=== PATIENT | female | born 1960 | race Caucasian/White ===

== ENCOUNTER 2025-05-29 23:19 | Inpatient (IN) | payer MEDICARE, MEDICAID, SELFPAY ==
--- NOTE | ~2025-05-29 | CT_ITS ---
EXAMINATION:CT diagnostic chest wo con DATE: 05/30/2025 11:08 INDICATION: Hyponatremia. TECHNIQUE: Computed tomography (CT) of the chest was performed without intravenous contrast. Automated exposure control and iterative reconstruction technique were employed. The dose-length product (DLP) was 767.69 mGy-cm. COMPARISON: None. FINDINGS: There is mild atelectasis bilaterally. No pleural effusion. The heart size is normal. There are coronary artery calcifications. No pericardial effusion. There is a small sliding hiatal hernia. There are vascular calcifications at the ladonna of the kidneys. There is cortical thinning of left kidney. There is mild chronic anterior wedging of many vertebral bodies. There is severe thoracic spondylosis. IMPRESSION: 1. Small sliding hiatal hernia. Reviewed, dictated and finalized at location E.
--- NOTE | ~2025-05-29 | XR_ITS ---
EXAMINATION: XR chest 1V portable COMPARISON: No comparisons available. HISTORY: COPD FINDINGS: The lungs are clear, no effusion. No pneumothorax. Heart is normal size. Mediastinal and hilar contours are within normal limits. Bony thorax no acute abnormality. Miscellaneous: None Impression: No acute cardiopulmonary abnormality. Reviewed, dictated and finalized at location P. Impression: No acute cardiopulmonary abnormality.
--- NOTE | ~2025-05-29 | CT_ITS ---
EXAMINATION: CT brain wo con DATE: 05/30/2025 00:52 INDICATION: Altered mental status. Anisocoria. TECHNIQUE: Computed tomography (CT) of the head was performed without intravenous contrast. The mA was adjusted according to patient size. Iterative reconstruction technique was employed. The dose-length product was 1135.00 mGy-cm. COMPARISON: None FINDINGS: There are old infarcts in the right frontal and parietal lobes. There is chronic encephalomalacia in left frontal temporal region. There are scattered areas of low attenuation in the cerebral white matter. There is no intracranial hemorrhage, acute infarction, or abnormal intracranial mass lesion. There is ex vacuo dilatation of temporal horn of left lateral ventricle. There is mucosal thickening in the paranasal sinuses. There are changes of left-sided craniotomy. 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 The orbits are normal. There are small bilateral mastoid effusions. IMPRESSION: 1. 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 Chronic encephalomalacia in the left frontal temporal region. 2. Moderate nonspecific cerebral white matter disease, which likely represents chronic small vessel ischemic disease. Reviewed, dictated and finalized at location E. IMPRESSION: 1. 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 Chronic encephalomalac ia in the left frontal temporal region. 2. Moderate nonspecific cerebral white matter disease, which likely represents chronic small vessel ischemic disease.
--- NOTE | ~2025-05-29 | XR_ITS ---
Examination: XR chest 1V portable Clinical History: ams Comparison: None Technique: Portable AP Findings: Heart size normal. Subtle diffuse interstitial markings. No acute bony abnormality. IMPRESSION: 1. Subtle interstitial pulmonary edema, pneumonitis, and/or chronic interstitial disease. Reviewed, dictated and finalized at location R. IMPRESSION: 1. Subtle interstitial pulmonary edema, pneumonitis, and/or chronic interstiti al disease.
[2025-05-29 23:20] VITALS: BP 122/84; PULSE 58; RESP 16; RESP 18; TEMP 36.7; O2SAT 91; O2SAT 95
[2025-05-29 23:38] LABS: Hematocrit 36.6 % (37.0-47.0); Hemoglobin 12.5 g/dL (12.0-15.0); Immature Granulocyte Percent A 0.7 % (0-0.5); Lymphocytes Absolute Auto 1.59 K/mm3 (0.9-3.2); Mean Corpuscular HGB Conc 34.2 g/dl (32-36); Mean Corpuscular Hemoglobin 29.2 pg (26-34); Mean Corpuscular Volume 85.5 fl (80-100); Nucleated Red Blood Cells Absolute Auto 0.000 K/mm3 (0.0-0.012); Nucleated Red Blood Cells Perc 0.0 % (0.0-0.2); Platelet Count Result 309 k/mm3 (150-375); Red Blood Count 4.28 M/mm3 (4.2-5.4); White Blood Count 9.8 K/mm3 (4.5-10.0)
[2025-05-29] MEDS: LACTATED RINGERS 1,000 ML 999 ML IV CONT (23:45)
--- NOTE | 2025-05-29 23:54 | ED.RECABL ---
HPI - Recheck/Abnormal Lab/Rx General Chief Complaint: Recheck/Abnormal Lab/Rx Stated Complaint: LOW BG, HYPOTENSIVE Time Seen by Provider: 05/29/25 23:41 History of Present Illness HPI narrative: 65-year-old female with history of insulin-dependent diabetes type 2 presenting to the emergency department for mental status changes. senior living suspects that patient received a dose of her short-acting insulin rather than a long-acting insulin and did not eat yet. She was altered and diaphoretic and hypoglycemic with a blood glucose of 20 on EMS arrival. Patient was given D 10 containing fluids 500 cc with improvement in mental status. Currently she is lethargic. No longer diaphoretic but having sonorous respirations, minimally arousable to verbal stimuli but arousable to physical stimuli briefly. Pupils appear slightly asymmetric right-sided greater than left-sided. When aroused patient verbalizes briefly but not enough to get a historical account of events. Related Data Allergies Allergy/AdvReac Type Severity Reaction Status Date / Time cephalexin (From [employer]) Allergy Intermediate Hives Verified 05/29/25 23:45 Cephalosporins Allergy Intermediate Rash Verified 05/29/25 23:45 Review of Systems Review of Systems: Unable to assess secondary to mental condition ROS unobtainable: Yes unobtainable due to medical condition Exam Narrative: GENERAL: Ill-appearing, sinus respirations, slightly diaphoretic HEAD: Normocephalic, atraumatic EYES: Pupils asymmetric right-sided greater than left-sided but reactive to light. ENT: Nares clear, no rhinorrhea or epistaxis. Mucous membranes very dry. NECK: Supple. CHEST: Sonorous respirations, mild coarse breath sounds, no tachypnea respiratory distress. HEART: [Regular rate and rhythm]. No murmur heard. 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 NEURO: Alert to name and vigorous verbal/physical stimuli. Seemingly moving her extremities but globally weak. Pupils asymmetric, arouses to painful stimuli, confused, following commands. Currently GCS 12 PSYCH: [Normal mood and affect.] Course Vital Signs Vital signs: Vital Signs Temperature 36.7 C 05/29/25 23:20 Pulse Rate 58 L 05/29/25 23:20 Respiratory Rate 18 05/29/25 23:20 Blood Pressure 122/84 05/29/25 23:20 Pulse Oximetry 91 05/29/25 23:20 Oxygen Delivery Room Air 05/29/25 23:20 Temperature 36.7 C 05/29/25 23:20 Pulse Rate 62 05/30/25 02:50 Respiratory Rate 13 05/30/25 02:50 Blood Pressure 122/84 05/29/25 23:20 Pulse Oximetry 100 05/30/25 02:50 Oxygen Delivery BiPAP 05/30/25 02:50 MDM - Recheck/Abnormal Lab/Rx MDM Narrative Medical decision making narrative: 65-year-old female with history of insulin-dependent diabetes type 2 presenting to the emergency department for mental status changes. senior living suspects that patient received a dose of her short-acting insulin rather than a long-acting insulin and did not eat yet. She was altered and diaphoretic and hypoglycemic with a blood glucose of 20 on EMS arrival. Patient was given D 10 containing fluids 500 cc with improvement in mental status. Currently she is lethargic. No longer diaphoretic but having sonorous respirations, minimally arousable to verbal stimuli but arousable to physical stimuli briefly. Pupils appear slightly asymmetric right-sided greater than left-sided. When aroused patient verbalizes briefly but not enough to get a historical account of events. POC glucose here over 200. Laboratory studies pending and current critical lab value shows a sodium 114. Given her decreased mental status GCS 12 and sonorous respirations with asymmetric pupils she was given 3% hypertonic saline bolus of 150 cc over [address] scan ordered, urinalysis with straight catheterization ordered, lactic acid obtained and additional laboratory studies, vbg, blood culture ordered. Temp sensing Heller was placed and she was hypothermic temperature 93.8? C. hypoxic crying oxygen currently placed on 2 L nasal cannula. Bradycardic in the 50s to 60s. Blood pressure stable. CT of the head shows no acute process. Blood gas obtained shows CO2 retention with elevated pCO2 and low pH. Placed on BiPAP for assistance with hypoxemia and her acidosis at this time. Patient's mentation only improved slightly and she is still having abnormal respirations, persistently hypothermic, blood glucose have been stable on repeat checks without any further dextrose administration. Given patient's symptomatology and constellation of symptoms additional exploration including potential adrenal crisis noted so we gave her hydrocortisone 100 mg IV push to assess. Repeat sodium after hypertonic only came up to 115. Workup thus far shows no white count. No anemia. Normal platelet count. Normal coagulation panel. Normal creatinine. Glucose study and holding in the 100-200 range. LFTs unremarkable. Lactic acid negative. Additional urine studies and serum osmolality pending. Awaiting remaining workup and response any of her current treatments. Patient will require ICU admission given encephalopathy multifactorial, hypoxemic respiratory failure on BiPAP, severe hyponatremia. Multiple times we tried to reach out to the on-call physician extender were unsuccessful. Does spoke to Dr. Salinas who recommended normal saline at 100 cc/hour rather than hypertonic infusion so we switched this over. Spoke to the skiver box toe Dr. Rinaldi who accepted the patient to the ICU after discussions. Patient is improved at this time and actually trying to rip off the BiPAP and she states she does not need this. She is not having any improvement on repeat ABGs. Did require small dose of intravenous Haldol to compliant she is much more comfortable. Encephalopathy is improving and as well as her vital signs. Spoke to the hospitalist Dr. Miguel who accepted the patient to the ICU at this time. Medical Records Attestation: I reviewed the patient's medical records. Lab Data Attestation: I reviewed the patient's lab results. 05/29/25 23:26 05/30/25 04:12 Labs: Lab Results 05/29/25 05/29/25 05/29/25 Range/Units 23:26 23:26 23:29 WBC 9.8 (4.5-10.0) K/mm3 RBC 4.28 (4.2-5.4) M/mm3 Hgb 12.5 (12.0-15.0) g/dL Hct 36.6 L (37.0-47.0) % MCV 85.5 (80-100) fl MCH 29.2 (26-34) pg MCHC 34.2 (32-36) g/dl RDW 13.8 (11.5-14.5) % Plt Count 309 (150-375) k/mm3 MPV 9.8 (7.4-10.4) fl Immature Gran % (Auto) 0.7 H (0-0.5) % Neut % (Auto) 67.1 (45.5-73.1) % Lymph % (Auto) 16.2 L (18.3-44.2) % Emery % (Auto) 13.3 H (2.6-8.5) % Eos % (Auto) 2.1 (0-4.4) % Baso % (Auto) 0.6 (0.2-1.2) % Lymph # (Auto) 1.59 (0.9-3.2) K/mm3 Emery # (Auto) 1.3 H (0.1-0.6) K/mm3 Eos # (Auto) 0.2 (0-0.3) K/mm3 Baso # (Auto) 0.1 (0.0-0.1) K/mm3 Abs Immat Gran (auto) 0.07 H (0.00-0.031) K/mm3 Absolute Neuts (auto) 6.6 (1.3-6.7) K/mm3 Absolute Nucleated RBC 0.000 (0.0-0.012) K/mm3 Nucleated RBC % 0.0 (0.0-0.2) % PT 13.5 (11.1-14.7) Seconds INR 1.0 APTT 29.5 (22.3-36.8) Seconds Expiratory Pressure CMH2O Inspiratory Pressure CMH2O Sodium 114 L* (137-145) mmol/L Potassium 4.0 (3.4-5.0) mmol/L Chloride 83 L (98-107) mmol/L Carbon Dioxide 28 (22-30) mmol/L Anion Gap 3 L (4-12) mmol/L BUN 29 H (7-17) mg/dL Creatinine 0.85 (0.7-1.0) mg/dL Estim Creat Clear Calc Not Reportable Estimated GFR > 60 (59 - ) Glucose 123 H (65-110) mg/dL POC Capillary Glucose 257 H (65-105) mg/dl Serum Osmolality Cancelled Pending Lactic Acid 1.4 (0.7-2.0) mmol/L Calcium 7.7 L (8.4-10.2) mg/dL Total Bilirubin 0.2 (0.2-1.3) mg/dL AST 30 (14-36) U/L ALT 21 (6-35) U/L Alkaline Phosphatase 108 (38-126) U/L Total Protein 6.7 (6.3-8.2) g/dL Albumin 3.5 (3.5-5.1) g/dL Random Cortisol ug/dL Urine Color (Yellow) Urine Appearance (Clear) Urine pH (5.0-9.0) Ur Specific [place] (1.001-1.035) Urine Protein (Negative) mg/dL Urine Glucose (UA) (Negative) mg/dL Urine Ketones (Negative) mg/dL Ur Blood (Man) (Negative) Urine Nitrate (Negative) Urine Bilirubin (Negative) Urine Urobilinogen (<2.0) mg/dL Leukocyte Esterase Rfl (Negative) JOSEFA/UL Urine Osmolality Ur Random Creatinine Urine Chloride Urine Opiates Screen (Negative) Urine Methadone Screen (Negative) Ur Barbiturates Screen (Negative) Ur Phencyclidine Scrn (Negative) Ur Amphetamine Screen (Negative) U Benzodiazepines Scrn (Negative) Urine Cocaine Screen (Negative) U Cannabinoids Screen (Negative) 05/30/25 05/30/25 05/30/25 Range/Units 00:22 00:22 00:29 WBC (4.5-10.0) K/mm3 RBC (4.2-5.4) M/mm3 Hgb (12.0-15.0) g/dL Hct (37.0-47.0) % MCV (80-100) fl MCH (26-34) pg MCHC (32-36) g/dl RDW (11.5-14.5) % Plt Count (150-375) k/mm3 MPV (7.4-10.4) fl Immature Gran % (Auto) (0-0.5) % Neut % (Auto) (45.5-73.1) % Lymph % (Auto) (18.3-44.2) % Emery % (Auto) (2.6-8.5) % Eos % (Auto) (0-4.4) % Baso % (Auto) (0.2-1.2) % Lymph # (Auto) (0.9-3.2) K/mm3 Emery # (Auto) (0.1-0.6) K/mm3 Eos # (Auto) (0-0.3) K/mm3 Baso # (Auto) (0.0-0.1) K/mm3 Abs Immat Gran (auto) (0.00-0.031) K/mm3 Absolute Neuts (auto) (1.3-6.7) K/mm3 Absolute Nucleated RBC (0.0-0.012) K/mm3 Nucleated RBC % (0.0-0.2) % PT (11.1-14.7) Seconds INR APTT (22.3-36.8) Seconds Expiratory Pressure CMH2O Inspiratory Pressure CMH2O Sodium (137-145) mmol/L Potassium (3.4-5.0) mmol/L Chloride (98-107) mmol/L Carbon Dioxide (22-30) mmol/L Anion Gap (4-12) mmol/L BUN (7-17) mg/dL Creatinine (0.7-1.0) mg/dL Estim Creat Clear Calc Estimated GFR (59 - ) Glucose (65-110) mg/dL POC Capillary Glucose 185 H (65-105) mg/dl Serum Osmolality Lactic Acid (0.7-2.0) mmol/L Calcium (8.4-10.2) mg/dL Total Bilirubin (0.2-1.3) mg/dL AST (14-36) U/L ALT (6-35) U/L Alkaline Phosphatase (38-126) U/L Total Protein (6.3-8.2) g/dL Albumin (3.5-5.1) g/dL Random Cortisol ug/dL Urine Color Yellow (Yellow) Urine Appearance Clear (Clear) Urine pH 6.0 (5.0-9.0) Ur Specific [place] 1.012 (1.001-1.035) Urine Protein Negative (Negative) mg/dL Urine Glucose (UA) Negative (Negative) mg/dL Urine Ketones Negative (Negative) mg/dL Ur Blood (Man) Negative (Negative) Urine Nitrate Negative (Negative) Urine Bilirubin Negative (Negative) Urine Urobilinogen 1.0 (<2.0) mg/dL Leukocyte Esterase Rfl Negative (Negative) JOSEFA/UL Urine Osmolality Pending Ur Random Creatinine Pending Pending Urine Chloride Pending Urine Opiates Screen Negative (Negative) Urine Methadone Screen Negative (Negative) Ur Barbiturates Screen Negative (Negative) Ur Phencyclidine Scrn Negative (Negative) Ur Amphetamine Screen Negative (Negative) U Benzodiazepines Scrn Negative (Negative) Urine Cocaine Screen Negative (Negative) U Cannabinoids Screen Negative (Negative) 05/30/25 05/30/25 05/30/25 Range/Units 01:12 01:15 02:15 WBC (4.5-10.0) K/mm3 RBC (4.2-5.4) M/mm3 Hgb (12.0-15.0) g/dL Hct (37.0-47.0) % MCV (80-100) fl MCH (26-34) pg MCHC (32-36) g/dl RDW (11.5-14.5) % Plt Count (150-375) k/mm3 MPV (7.4-10.4) fl Immature Gran % (Auto) (0-0.5) % Neut % (Auto) (45.5-73.1) % Lymph % (Auto) (18.3-44.2) % Emery % (Auto) (2.6-8.5) % Eos % (Auto) (0-4.4) % Baso % (Auto) (0.2-1.2) % Lymph # (Auto) (0.9-3.2) K/mm3 Emery # (Auto) (0.1-0.6) K/mm3 Eos # (Auto) (0-0.3) K/mm3 Baso # (Auto) (0.0-0.1) K/mm3 Abs Immat Gran (auto) (0.00-0.031) K/mm3 Absolute Neuts (auto) (1.3-6.7) K/mm3 Absolute Nucleated RBC (0.0-0.012) K/mm3 Nucleated RBC % (0.0-0.2) % PT (11.1-14.7) Seconds INR APTT (22.3-36.8) Seconds Expiratory Pressure CMH2O Inspiratory Pressure CMH2O Sodium 115 L* (137-145) mmol/L Potassium (3.4-5.0) mmol/L Chloride (98-107) mmol/L Carbon Dioxide (22-30) mmol/L Anion Gap (4-12) mmol/L BUN (7-17) mg/dL Creatinine (0.7-1.0) mg/dL Estim Creat Clear Calc Estimated GFR (59 - ) Glucose (65-110) mg/dL POC Capillary Glucose 189 H 186 H (65-105) mg/dl Serum Osmolality Lactic Acid (0.7-2.0) mmol/L Calcium (8.4-10.2) mg/dL Total Bilirubin (0.2-1.3) mg/dL AST (14-36) U/L ALT (6-35) U/L Alkaline Phosphatase (38-126) U/L Total Protein (6.3-8.2) g/dL Albumin (3.5-5.1) g/dL Random Cortisol ug/dL Urine Color (Yellow) Urine Appearance (Clear) Urine pH (5.0-9.0) Ur Specific [place] (1.001-1.035) Urine Protein (Negative) mg/dL Urine Glucose (UA) (Negative) mg/dL Urine Ketones (Negative) mg/dL Ur Blood (Man) (Negative) Urine Nitrate (Negative) Urine Bilirubin (Negative) Urine Urobilinogen (<2.0) mg/dL Leukocyte Esterase Rfl (Negative) JOSEFA/UL Urine Osmolality Ur Random Creatinine Urine Chloride Urine Opiates Screen (Negative) Urine Methadone Screen (Negative) Ur Barbiturates Screen (Negative) Ur Phencyclidine Scrn (Negative) Ur Amphetamine Screen (Negative) U Benzodiazepines Scrn (Negative) Urine Cocaine Screen (Negative) U Cannabinoids Screen (Negative) 05/30/25 05/30/25 Range/Units 02:16 02:36 WBC (4.5-10.0) K/mm3 RBC (4.2-5.4) M/mm3 Hgb (12.0-15.0) g/dL Hct (37.0-47.0) % MCV (80-100) fl MCH (26-34) pg MCHC (32-36) g/dl RDW (11.5-14.5) % Plt Count (150-375) k/mm3 MPV (7.4-10.4) fl Immature Gran % (Auto) (0-0.5) % Neut % (Auto) (45.5-73.1) % Lymph % (Auto) (18.3-44.2) % Emery % (Auto) (2.6-8.5) % Eos % (Auto) (0-4.4) % Baso % (Auto) (0.2-1.2) % Lymph # (Auto) (0.9-3.2) K/mm3 Emery # (Auto) (0.1-0.6) K/mm3 Eos # (Auto) (0-0.3) K/mm3 Baso # (Auto) (0.0-0.1) K/mm3 Abs Immat Gran (auto) (0.00-0.031) K/mm3 Absolute Neuts (auto) (1.3-6.7) K/mm3 Absolute Nucleated RBC (0.0-0.012) K/mm3 Nucleated RBC % (0.0-0.2) % PT (11.1-14.7) Seconds INR APTT (22.3-36.8) Seconds Expiratory Pressure 5 CMH2O Inspiratory Pressure 10 CMH2O Sodium 115 L* (137-145) mmol/L Potassium 4.5 (3.4-5.0) mmol/L Chloride 84 L (98-107) mmol/L Carbon Dioxide 28 (22-30) mmol/L Anion Gap 3 L (4-12) mmol/L BUN 29 H (7-17) mg/dL Creatinine 0.74 (0.7-1.0) mg/dL Estim Creat Clear Calc Not Reportable Estimated GFR > 60 (59 - ) Glucose 145 H (65-110) mg/dL POC Capillary Glucose (65-105) mg/dl Serum Osmolality Lactic Acid (0.7-2.0) mmol/L Calcium 7.6 L (8.4-10.2) mg/dL Total Bilirubin (0.2-1.3) mg/dL AST (14-36) U/L ALT (6-35) U/L Alkaline Phosphatase (38-126) U/L Total Protein (6.3-8.2) g/dL Albumin (3.5-5.1) g/dL Random Cortisol 117.00 ug/dL Urine Color (Yellow) Urine Appearance (Clear) Urine pH (5.0-9.0) Ur Specific [place] (1.001-1.035) Urine Protein (Negative) mg/dL Urine Glucose (UA) (Negative) mg/dL Urine Ketones (Negative) mg/dL Ur Blood (Man) (Negative) Urine Nitrate (Negative) Urine Bilirubin (Negative) Urine Urobilinogen (<2.0) mg/dL Leukocyte Esterase Rfl (Negative) JOSEFA/UL Urine Osmolality Ur Random Creatinine Urine Chloride Urine Opiates Screen (Negative) Urine Methadone Screen (Negative) Ur Barbiturates Screen (Negative) Ur Phencyclidine Scrn (Negative) Ur Amphetamine Screen (Negative) U Benzodiazepines Scrn (Negative) Urine Cocaine Screen (Negative) U Cannabinoids Screen (Negative) ABG Data ABG results: 05/30/25 05/30/25 00:17 02:36 Puncture Site Right radial ABG pH 7.260 L* ABG pCO2 60.0 H ABG pO2 97.2 ABG PO2/FiO2 Ratio 1.94 ABG HCO3 26.3 H ABG O2 Saturation 96.3 ABG O2 Content 17.5 ABG Base Excess -1.8 VBG pH 7.260 L VBG pCO2 63.1 H VBG pO2 37.0 VBG HCO3 27.7 A-a Gradient 191.8 Oxyhemoglobin 94.4 Total Hemoglobin 13.1 O2 Delivery Device Nasal cannula Non-invasive vent O2 Liters/Min 2.0 Not Reportable Vent Rate 12 FiO2 28 50 Attestation: I personally reviewed and interpreted this ABG as follows: Interpretation: Respiratory acidosis with CO2 retention Imaging Data Attestation: I personally reviewed and interpreted this imaging study as follows: My impression: No intracranial process. Chest x-ray shows no acute process Critical Care Time Critical Care Time Critical Care Time: Yes Total Critical Care Time: 105 Discharge Plan Discharge Clinical Impression: Encephalopathy acute, Acute hyponatremia, Acute metabolic encephalopathy due to hypoglycemia, Hypothermia, Acute respiratory acidosis Patient Disposition: Still a Patient Condition: Guarded Prognosis Time of Disposition: 04:30
[2025-05-29 23:55] LABS: Alanine Aminotransferase 21 U/L (6-35); Albumin Level 3.5 g/dL (3.5-5.1); Alkaline Phosphatase 108 U/L (38-126); Anion Gap 3 mmol/L (4-12); Aspartate Amino Transferase 30 U/L (14-36); Bilirubin,Total 0.2 mg/dL (0.2-1.3); Blood Urea Nitrogen 29 mg/dL (7-17); Calcium 7.7 mg/dL (8.4-10.2); Carbon Dioxide 28 mmol/L (22-30); Chloride 83 mmol/L (98-107); Estimated Glomerular Filt Rate > 60; Glucose 123 mg/dL (65-110); Potassium 4.0 mmol/L (3.4-5.0); Sodium 114 mmol/L (137-145); Total Protein 6.7 g/dL (6.3-8.2)
[2025-05-30] VITALS (76 sets, daily range): BP systolic 83–186; BP diastolic 44–132; PULSE 56–88; RESP 10–23; TEMP 34.7–37; O2SAT 89–100; BMI 35.4
--- NOTE | 2025-05-30 | ECHO_ITS ---
Patient Info Name: Analia Hernandez Age: 65 years : 1960 Gender: Female Ht: 64 in Wt: 206 lbs BSA: 2.09 m2 HR: 69 bpm BP: 117 / 66 mmHg Technical Quality: Good Exam Date: 05/30/2025 11:47 AM Patient Status: I Admit Date: 05/30/2025 Exam Type: CA echo doppler color flow Complete two-dimensional, color flow and Doppler transthoracic echocardiogram is performed. Normal LV size, mild LVH, normal LV systolic function, ejection fraction about 65-70%. Grade 1 diastolic dysfunction. Normal RV size and systolic function. Mild left enlargement. Normal right atrial size. Normal mitral valve structure, no segment MR. Normal aortic valve structure, no hemodynamically significant stenosis. Unable to assess RVSP due to inadequate TR jet. Normal IVC size. No significant effusion. Staff Referring Physician: Facundo De León MD Stationary Engineer Supervisor: Emma Villela Attending Provider: Althea Miguel DO Summary 1. Complete two-dimensional, color flow and Doppler transthoracic echocardiogram is performed. Normal LV size, mild LVH, normal LV systolic function, ejection fraction about 65-70%. Grade 1 diastolic dysfunction. Normal RV size and systolic function. Mild left enlargement. Normal right atrial size. Normal mitral valve structure, no segment MR. Normal aortic valve structure, no hemodynamically significant stenosis. Unable to assess RVSP due to inadequate TR jet. Normal IVC size. No significant effusion. 2. Technically difficult study, suboptimal image quality. Left Ventricular Outflow Tract Name Value Normal LVOT 2D LVOT Diameter 2.0 cm LVOT Doppler LVOT Peak Velocity 128 cm/s LVOT Peak Gradient 7 mmHg LVOT Mean Gradient 4 mmHg LVOT VTI 33 cm LVOT VTI/AV VTI Ratio 0.7 LVOT Stroke Volume 109 ml LVOT CO 7.5 l/min LVOT CI 3.6 l/min/m2 Pulmonic Valve Name Value Normal RVOT Doppler RVOT Peak Velocity 123 cm/s RVOT Peak Gradient 6 mmHg PV Doppler PV Peak Velocity 163 cm/s PV Peak Gradient 11 mmHg Mitral Valve Name Value Normal MV Diastolic Function MV E Peak Velocity 101 cm/s MV A Peak Velocity 114 cm/s MV E/A 0.9 MV Decel Time (PW) 272 ms MV Annular TDI MV E/e' (Septal) 16.7 MV E/e' (Lateral) 12.5 MV E/e' (Average) 14.6 Aortic Valve Name Value Normal AV Doppler AV Peak Velocity 178 cm/s AV Peak Gradient 13 mmHg AV Mean Gradient 7 mmHg AV VTI 45 cm AV Area (Cont Eq VTI) 2.4 cm2 >=3.0 AV Area (Cont Eq Olvin) 2.4 cm2 AV DI (Olvin) 0.72 AV Regurgitation 2D LVOT Area 3.3 cm2 Ventricles Name Value Normal LV Dimensions 2D/MM LVOT Diameter 2.0 cm LV Fractional Shortening/Ejection Fraction 2D/MM LV Diastolic Volume (4C MOD) 87 ml LV EF (4C MOD) 71 % LV Diastolic Volume (2C MOD) 85 ml LV EF (2C MOD) 63 % LV Diastolic Volume (BP MOD) 87 ml 46-106 LV Diastolic Volume Index (BP MOD) 41 ml/m2 29-61 LV Systolic Volume (BP MOD) 29 ml 14-42 LV Systolic Volume Index (BP MOD) 14 ml/m2 8-24 LV EF (BP MOD) 67 % 54-74 LV Diastolic Length (4C) 7.8 cm LV Systolic Length (4C) 6.3 cm LV Stroke Volume (4C MOD) 62 ml Atria Name Value Normal LA Dimensions LA Volume (4C A-L) 29 ml LA Volume (BP A-L) 41 ml RA Dimensions RA Systolic Major Katy Length (4C) 5.3 cm 2.2-2.8 RA Area (4C) 15.2 cm2 <=18.0 Report Signatures
[2025-05-30 00:25] LABS: Fractional Inspired Oxygen 28 %; HCO3 VBG 27.7 mEq/l (24.0-30.0); PCO2 VBG 63.1 mmHg (42.0-48.0); PO2 VBG 37.0 mmHg (35.0-45.0); pH VBG 7.260 (7.300-7.400)
[2025-05-30 00:26] LABS: Liters per Minute 2.0 LPM
[2025-05-30 00:27] LABS: INR 1.0; Prothrombin Time 13.5 Seconds (11.1-14.7)
[2025-05-30 00:28] LABS: Partial Thromboplastin Time 29.5 Seconds (22.3-36.8)
[2025-05-30] MEDS: SODIUM CHLORIDE 3% 150 ML 450 ML IV CONT (00:30)
[2025-05-30 00:31] LABS: Add Urine Microscopic? NO; Appearance Urine Clear (Clear); Glucose Urine UA Negative (Negative); Leukocyte Esterase Ur Negative LEU/UL (Negative); Nitrate Urine Negative (Negative); Specific Grav Ur 1.012 (1.001-1.035)
[2025-05-30] MEDS: LACTATED RINGERS 1,000 ML 999 ML IV CONT (00:52)
[2025-05-30 01:28] LABS: Sodium 115 mmol/L (137-145)
[2025-05-30] MEDS: HYDROCORTISONE SODIUM SUCCINATE 100 MG/2 ML VIAL IV PUSH (02:03)
[2025-05-30 02:40] LABS: Anion Gap 3 mmol/L (4-12); Blood Urea Nitrogen 29 mg/dL (7-17); Calcium 7.6 mg/dL (8.4-10.2); Carbon Dioxide 28 mmol/L (22-30); Chloride 84 mmol/L (98-107); Estimated Glomerular Filt Rate > 60; Glucose 145 mg/dL (65-110); Potassium 4.5 mmol/L (3.4-5.0); Sodium 115 mmol/L (137-145)
[2025-05-30 02:46] LABS: Alveolar/Arterial O2 Gradient 191.8 mmHg; Fractional Inspired Oxygen 50 %; HCO3 ABG 26.3 mEq/l (22.0-26.0); Oxygen Content ABG 17.5 %vol (16.0-22.0); Oxygen Saturation ABG 96.3 % (95.0-100.0); PCO2 ABG 60.0 mmHg (35.0-45.0); PO2 ABG 97.2 mmHg (80.0-100.0); PO2 FiO2 Ratio Arterial Blood 1.94 %
[2025-05-30 02:47] LABS: Modified Allen's Test Pass; Site Drawn RIGHT RADIAL
[2025-05-30 02:48] LABS: Non-Invasive Expiratory Pressure 5 CMH2O; Non-Invasive Inspiratory Pressure 10 CMH2O; Non-Invasive Vent Rate 12 /MIN
[2025-05-30 02:54] LABS: Cannabinoid Screen Urine Negative (Negative)
[2025-05-30] MEDS: HALOPERIDOL LACTATE 5 MG/ML VIAL 2.5 MG IV PUSH (03:07)
[2025-05-30] MEDS: SODIUM CHLORIDE 3% 500 ML 75 ML IV CONT (04:09)
[2025-05-30] MEDS: SODIUM CHLORIDE 0.9% IV 1,000 ML 100 ML IV CONT (04:32)
[2025-05-30 04:42] LABS: Anion Gap 5 mmol/L (4-12); Blood Urea Nitrogen 30 mg/dL (7-17); Calcium 7.7 mg/dL (8.4-10.2); Carbon Dioxide 26 mmol/L (22-30); Chloride 84 mmol/L (98-107); Estimated Glomerular Filt Rate > 60; Glucose 155 mg/dL (65-110); Potassium 5.6 mmol/L (3.4-5.0); Sodium 115 mmol/L (137-145)
[2025-05-30 05:00] LABS: Thyroid Stimulating Hormone Reflex 0.502 uIU/mL (0.465-4.68)
[2025-05-30 05:29] LABS: MRSA (PCR) NOT DETECTED (NOT DETECTE)
[2025-05-30 06:16] LABS: Alveolar/Arterial O2 Gradient 178.3 mmHg; Carboxyhemoglobin 2.2 % THb (0-2.0); Fractional Inspired Oxygen 40 %; HCO3 ABG 26.7 mEq/l (22.0-26.0); Methemoglobin ABG 0.2 %THb (0-1.5); Oxygen Content ABG 10.8 %vol (16.0-22.0); PO2 FiO2 Ratio Arterial Blood 0.86 %; Reduced Hemoglobin 39.5 %THb (0-5.0)
--- NOTE | 2025-05-30 06:53 | ADMGEN ---
This patient, Analia Hernandez, was admitted to Intensive Care Unit-7 on 05/30/25 at 0645. Patient/family oriented to hospital policies and general routines including ID bracelet, bed and alarms, visiting hours, pain management, procedures, bathroom and other care routines, personal items, smoking policy, room service/diet, and visiting hours. Information on how to activate the Rapid Response Team has been discussed. Patient/Family are encouraged to report perceived risks to care and to ask questions if they do not understand what they are told or what they should do.
--- NOTE | 2025-05-30 07:15 | PCRCNOTE ---
RT was unable to obtain abg; multiple attempts were made
[2025-05-30 08:19] LABS: Oxygen Saturation ABG 96.6 % (95.0-100.0); PCO2 ABG 53.1 mmHg (35.0-45.0); PO2 ABG 93.6 mmHg (80.0-100.0)
[2025-05-30 08:23] LABS: Liters per Minute 4.0 LPM; Modified Allen's Test Pass; Site Drawn RIGHT RADIAL
[2025-05-30 08:31] LABS: Anion Gap 4 mmol/L (4-12); Blood Urea Nitrogen 24 mg/dL (7-17); Calcium 7.8 mg/dL (8.4-10.2); Carbon Dioxide 26 mmol/L (22-30); Chloride 86 mmol/L (98-107); Estimated CRCL calculation 87 ml/min; Estimated Glomerular Filt Rate > 60; Glucose 122 mg/dL (65-110); Potassium 5.6 mmol/L (3.4-5.0); Sodium 116 mmol/L (137-145)
[2025-05-30 09:06] LABS: MRSA (PCR) NOT DETECTED (NOT DETECTE)
--- NOTE | 2025-05-30 09:50 | WPDCNINT ---
Assessment and Plan Assessment and plan (1) Encephalopathy acute: Code(s): G93.40 - Encephalopathy, unspecified Status: Acute Assessment and Plan: Presented with acute encephalopathy which is likely secondary to hypoglycemia as it has resolved after administration of dextrose. Patient also has is hyponatremia but hyponatremia is still present and mental status has improved his suggesting against the etiology Head CT was negative ABG reviewed TSH was normal check ammonia Hyponatremia management as below Hold sedatives (2) Hyponatremia: Code(s): E87.1 - Hypo-osmolality and hyponatremia Status: Acute Assessment and Plan: Patient presented with hyponatremia with normal renal function Differential includes dehydration as patient is on diuretics vs medication induced as patient is on several psychiatric medications vs SIADH Nephrology has been consulted assistance in management and patient is on normal saline at this time as per Nephrology recommendations with acute for are BMP monitoring. Check CT chest as patient has heavy stay of smoking TSH is normal, random cortisol level is in normal range (3) COPD (chronic obstructive pulmonary disease): Code(s): J44.9 - Chronic obstructive pulmonary disease, unspecified Status: Acute Assessment and Plan: Bronchodilators, Advair (4) Hypoglycemia: Code(s): E16.2 - Hypoglycemia, unspecified Status: Acute Assessment and Plan: Patient presented with altered mental status and hypoglycemia. Hypoglycemia appears to be secondary to her in restriction insulin. Blood sugar has now improved after administration of dextrose. I will continue to hold insulin at this time and monitor Accu-Cheks q.1 hour and once stabilized patient will be transition to less frequent blood sugar monitoring. (5) Diabetes mellitus: Code(s): E11.9 - Type 2 diabetes mellitus without complications Status: Acute Assessment and Plan: See above (6) Respiratory failure: Code(s): J96.90 - Respiratory failure, unspecified, unspecified whether with hypoxia or hypercapnia Status: Acute Assessment and Plan: Patient has history of COPD and presented with respiratory acidosis which could have been exacerbated by her encephalopathy. Patient was placed on BiPAP. ABG has improved. Patient is now awake alert and on nasal cannula. Will use BiPAP on p.r.n. basis as needed. Chest x-ray was clear I will obtain CT scan to evaluate for hyponatremia since patient has a heavy history of smoking (7) Hyperkalemia: Code(s): E87.5 - Hyperkalemia Status: Acute Assessment and Plan: Pt given [facility] managing (8) Hyperlipidemia: Code(s): E78.5 - Hyperlipidemia, unspecified Status: Acute Assessment and Plan: Continue statin (9) Depression: Code(s): F32.A - Depression, unspecified Status: Acute Assessment and Plan: Hold psychiatric medications (10) Anxiety: Code(s): F41.9 - Anxiety disorder, unspecified Status: Acute Assessment and Plan: Hold medications and monitor at this time (11) Peripheral arterial disease: Code(s): I73.9 - Peripheral vascular disease, unspecified Status: Acute Assessment and Plan: Aspirin statin (12) Hypothyroidism: Code(s): E03.9 - Hypothyroidism, unspecified Status: Acute Assessment and Plan: Continue levothyroxine (13) Dementia: Code(s): F03.90 - Unspecified dementia, unspecified severity, without behavioral disturbance, psychotic disturbance, mood disturbance, and anxiety Status: Acute Assessment and Plan: Hold medications in light of hyponatremia Plan DVT prophylaxis -Lovenox Nutrition -start clear liquid diet advance as tolerated to diabetic Code Status - Full Code Total Critical Care Time - 30 minutes Due to a high probability of clinically significant, life threatening deterioration, the patient required my highest level of preparedness to intervene emergently and I personally spent this critical care time directly and personally managing the patient. This critical care time included obtaining a history; examining the patient; pulse oximetry; ordering and review of studies; arranging urgent treatment with development of a management plan; evaluation of patient's response to treatment; frequent reassessment; and discussions with other providers. It was exclusive of separately billable procedures and treating other patients and teaching time. Please see Assessment and Plan section and the rest of the note for further information on patient assessment and treatment [employer] Consult Note Consult date: 05/30/25 Reason for consult: Encephalopathy, hyponatremia HPI: Analia Hernandez is a 65 year old female who is a longterm resident and has past medical history of type 2 diabetes, COPD, right above knee amputation, peripheral neuropathy was sent from longterm yesterday with altered mental status and hypoglycemia. Patient who used to be on insulin pump was switched to subcutaneous insulin at longterm. She states she takes 25 of Lantus in the morning and 30 of Lantus at night and sliding scale during the day. Yesterday she was found to be altered and diaphoretic and when her sugar was checked it was 20. It appears that she was given her short-acting insulin without she eating her meals.. In ER patient was given dextrose along with fluids with improvement in mental status. Patient also was found to be hypercarbic and was placed on BiPAP.. Patient was unable to provide any meaningful history. She also was found to be having severe hyponatremia and was given 3% saline bolus which only led to minimal improvement in her sodium level. Nephrology consulted patient was started on regular normal saline and admitted to ICU and was placed on BiPAP. This morning when I evaluated the patient patient is now alert awake oriented x3 and states she feels better. She confirmed that she had a low blood sugar level last night due to some error with insulin administration and states that prior to that she was feeling fine and no issues whatsoever. She states she is in longterm because she had a sacral wound which could not be managed at home and since then she has had surgery and the wound has healed. She admitted to taking all the medications regularly although she does not know all the details of all the medications she takes. She admits to smoking cigarettes drinking alcohol rarely and denies any other drug use. All other systems were reviewed and were negative Review of Systems Review of Systems: All systems reviewed & are unremarkable except as noted in HPI and below (HPI) [facility], [facility] Past Medical History Medical History (Updated 05/30/25 @ 10:14 by Facundo De León MD) COPD (chronic obstructive pulmonary disease) Dementia Hypothyroidism CVA (cerebral vascular accident) Peripheral arterial disease Anxiety Depression Hyperlipidemia Diabetes mellitus Surgical History Surgical History (Updated 05/30/25 @ 10:14 by Facundo De León MD) History of right above knee amputation Family History Family History (Updated 05/30/25 @ 07:02 by Marva Castellano RN) Father Pacemaker Congestive heart failure Father Hypertension Sibling Hypertension Social History Social History Smoking packs per day: 1 Smoking cigarettes per day: 20.0 Years smoked: 30 Smoking pack-years: 30.00 Smoking status: Former smoker Tobacco type: cigarettes Second hand tobacco smoke exposure: Yes Alcohol intake: never Substance use: never Lack of Transportation: No Lack of Food: Never True Current Housing: I Have Housing Concerned About Future Housing: No Difficulty Paying Gas/Electric Bills: No Difficulty Paying for Meds: No Currently Unemployed: No Education: Associate Degree Difficulty w/ Childcare or Family Care: No Spiritual care concerns: No Meds Home Medications and Allergies Home Medications ?Medication ?Instructions ?Recorded ?Confirmed ?Type amitriptyline 50 mg tablet 50 mg PO HS 05/30/25 05/30/25 History aspirin 81 mg capsule 81 mg PO DAILY 05/30/25 05/30/25 History atorvastatin 40 mg tablet 40 mg PO HS 05/30/25 05/30/25 History bupropion HCl 150 mg 24 hr tablet, 150 mg PO DAILY 05/30/25 05/30/25 History extended release cholecalciferol (vitamin D3) 1,250 50,000 unit PO DAILY 05/30/25 05/30/25 History mcg (50,000 unit) oral wafer cholecalciferol (vitamin D3) 50 50 mcg PO DAILY 05/30/25 05/30/25 History mcg (2,000 unit) chewable tablet donepezil 10 mg tablet 10 mg PO HS 05/30/25 05/30/25 History duloxetine 20 mg capsule,delayed 20 mg PO BID 05/30/25 05/30/25 History release fluticasone propionate 45 2 puff inhalation BID PRN 05/30/25 05/30/25 History mcg-salmeterol 21 mcg/actuation shortness of breath HFA inhaler (Advair HFA) furosemide 40 mg tablet 40 mg PO DAILY 05/30/25 05/30/25 History guaifenesin 400 mg tablet (Chest 400 mg PO Q6H PRN congestion 05/30/25 05/30/25 History Congestion Relief) insulin aspart U-100 100 unit/mL 1 sliding scale dose subcut ACHS 05/30/25 05/30/25 History (3 mL) subcutaneous pen insulin degludec 100 unit/mL (3 25 unit subcut DAILY 05/30/25 05/30/25 History mL) subcutaneous pen insulin degludec 100 unit/mL (3 30 unit subcut HS 05/30/25 05/30/25 History mL) subcutaneous pen ipratropium 20 mcg-albuterol 100 1 puff inhalation BID PRN 05/30/25 05/30/25 History mcg/actuation mist for inhalation shortness of breath or wheezing (Combivent Respimat) levothyroxine 100 mcg tablet 100 mcg PO DAILY 05/30/25 05/30/25 History levothyroxine 75 mcg tablet 75 mcg PO DAILY 05/30/25 05/30/25 History lisinopril 20 mg tablet 20 mg PO DAILY 05/30/25 05/30/25 History loratadine 10 mg tablet 10 mg PO DAILY 05/30/25 05/30/25 History (Allerclear) memantine 10 mg tablet 10 mg PO BID 05/30/25 05/30/25 History metoclopramide HCl 10 mg tablet 10 mg PO AC 05/30/25 05/30/25 History oxycodone 5 mg tablet 5 mg PO Q4H PRN pain 05/30/25 05/30/25 History polyethylene glycol 3350 17 17 g PO DAILY PRN constipation 05/30/25 05/30/25 History gram/dose oral powder (Miralax) pramipexole 0.5 mg tablet 0.5 mg PO TID 05/30/25 05/30/25 History pregabalin 300 mg capsule (Lyrica) 300 mg PO TID 05/30/25 05/30/25 History sodium chloride 0.65 % nasal spray 2 spray intranasal Q2H PRN dry 05/30/25 05/30/25 History aerosol ([place] Saline) nasal passages Allergies Allergy/AdvReac Type Severity Reaction Status Date / Time cephalexin (From [facility]) Allergy Intermediate Hives Verified 05/30/25 09:50 Cephalosporins Allergy Intermediate Rash Verified 05/30/25 09:50 Vital Signs Vital Signs - 24 hr 05/29/25 23:20 05/29/25 23:20 05/30/25 00:50 Temperature 36.7 C Pulse Rate 58 L 56 L Respiratory Rate 18 16 13 Blood Pressure 122/84 Pulse Oximetry 91 95 97 Oxygen Delivery Room Air BiPAP Oxygen Flow Rate 2 Fraction of Inspired Oxygen 05/30/25 01:11 05/30/25 01:15 05/30/25 01:17 Temperature 34.7 C L 34.7 C L 34.7 C L Pulse Rate 57 L 57 L 58 L Respiratory Rate 10 L 10 L 10 L Blood Pressure 128/109 H 141/132 H Pulse Oximetry 100 100 Oxygen Delivery Oxygen Flow Rate Fraction of Inspired Oxygen 05/30/25 01:22 05/30/25 01:27 05/30/25 01:30 Temperature 34.7 C L 34.8 C L 34.8 C L Pulse Rate 56 L 59 L 57 L Respiratory Rate 10 L 11 L 10 L Blood Pressure 134/98 H 127/68 Pulse Oximetry 100 100 100 Oxygen Delivery Oxygen Flow Rate Fraction of Inspired Oxygen 05/30/25 01:32 05/30/25 01:37 05/30/25 01:42 Temperature 34.8 C L 34.8 C L 34.8 C L Pulse Rate 56 L 58 L 59 L Respiratory Rate 11 L 11 L 11 L Blood Pressure 140/58 L 151/83 H 153/49 H Pulse Oximetry 100 100 Oxygen Delivery Oxygen Flow Rate Fraction of Inspired Oxygen 05/30/25 01:45 05/30/25 01:52 05/30/25 02:00 Temperature 34.8 C L 34.8 C L 34.9 C L Pulse Rate 58 L 60 58 L Respiratory Rate 10 L 11 L 10 L Blood Pressure 163/128 H Pulse Oximetry Oxygen Delivery Oxygen Flow Rate Fraction of Inspired Oxygen 05/30/25 02:02 05/30/25 02:15 05/30/25 02:16 Temperature 34.8 C L 34.9 C L 34.9 C L Pulse Rate 58 L 59 L 65 Respiratory Rate 12 11 L 15 Blood Pressure 154/131 H 163/58 H Pulse Oximetry 100 Oxygen Delivery Oxygen Flow Rate Fraction of Inspired Oxygen 05/30/25 02:22 05/30/25 02:30 05/30/25 02:45 Temperature 35.0 C L 35.1 C L 35.2 C L Pulse Rate 62 59 L 62 Respiratory Rate 20 17 16 Blood Pressure 142/68 H 110/84 Pulse Oximetry 100 100 100 Oxygen Delivery Oxygen Flow Rate Fraction of Inspired Oxygen 05/30/25 02:46 05/30/25 02:50 05/30/25 02:52 Temperature 35.2 C L 35.2 C L Pulse Rate 61 62 58 L Respiratory Rate 14 13 17 Blood Pressure 123/82 Pulse Oximetry 100 100 100 Oxygen Delivery BiPAP Oxygen Flow Rate Fraction of Inspired Oxygen 05/30/25 03:00 05/30/25 03:01 05/30/25 03:12 Temperature 35.3 C L 35.3 C L 35.4 C L Pulse Rate 58 L 62 59 L Respiratory Rate 19 19 14 Blood Pressure 131/105 H 125/105 H Pulse Oximetry 100 100 100 Oxygen Delivery Oxygen Flow Rate Fraction of Inspired Oxygen 05/30/25 03:15 05/30/25 03:22 05/30/25 03:30 Temperature 35.5 C L 35.6 C L 35.7 C L Pulse Rate 59 L 59 L 58 L Respiratory Rate 12 13 12 Blood Pressure 106/57 L Pulse Oximetry 100 100 100 Oxygen Delivery Oxygen Flow Rate Fraction of Inspired Oxygen 05/30/25 03:32 05/30/25 03:42 05/30/25 03:45 Temperature 35.7 C L 35.8 C L 35.8 C L Pulse Rate 58 L 58 L 58 L Respiratory Rate 12 12 12 Blood Pressure 112/64 128/64 Pulse Oximetry 100 100 100 Oxygen Delivery Oxygen Flow Rate Fraction of Inspired Oxygen 05/30/25 03:52 05/30/25 04:00 05/30/25 04:01 Temperature 35.9 C L 36.0 C L 36.0 C L Pulse Rate 58 L 58 L 58 L Respiratory Rate 12 11 L 12 Blood Pressure 120/54 L 83/73 L Pulse Oximetry 100 100 100 Oxygen Delivery Oxygen Flow Rate Fraction of Inspired Oxygen 05/30/25 04:03 05/30/25 04:11 05/30/25 04:15 Temperature 36.1 C L 36.2 C L 36.2 C L Pulse Rate 60 63 64 Respiratory Rate 11 L 20 16 Blood Pressure 103/87 120/71 Pulse Oximetry 100 100 100 Oxygen Delivery Oxygen Flow Rate Fraction of Inspired Oxygen 05/30/25 04:21 05/30/25 04:30 05/30/25 04:32 Temperature 36.3 C L 36.4 C 36.4 C Pulse Rate 68 67 65 Respiratory Rate 17 17 15 Blood Pressure 164/67 H 136/60 Pulse Oximetry 100 100 100 Oxygen Delivery Oxygen Flow Rate Fraction of Inspired Oxygen 05/30/25 04:42 05/30/25 04:45 05/30/25 04:52 Temperature 36.5 C 36.6 C 36.6 C Pulse Rate 61 64 77 Respiratory Rate 17 16 20 Blood Pressure 152/65 H 138/121 H Pulse Oximetry 100 100 99 Oxygen Delivery Oxygen Flow Rate Fraction of Inspired Oxygen 05/30/25 05:00 05/30/25 05:02 05/30/25 05:12 Temperature 36.6 C 36.6 C 36.6 C Pulse Rate 64 69 63 Respiratory Rate 20 23 H 19 Blood Pressure 102/88 110/98 H Pulse Oximetry 99 100 99 Oxygen Delivery Oxygen Flow Rate Fraction of Inspired Oxygen 05/30/25 05:15 05/30/25 05:16 05/30/25 05:21 Temperature 36.6 C 36.7 C Pulse Rate 68 73 65 Respiratory Rate 16 17 20 Blood Pressure 136/61 Pulse Oximetry 100 97 99 Oxygen Delivery BiPAP Oxygen Flow Rate Fraction of Inspired Oxygen 05/30/25 05:30 05/30/25 05:32 05/30/25 05:45 Temperature 36.7 C 36.7 C 36.7 C Pulse Rate 67 63 67 Respiratory Rate 16 18 20 Blood Pressure 136/63 Pulse Oximetry 100 100 100 Oxygen Delivery Oxygen Flow Rate Fraction of Inspired Oxygen 05/30/25 06:48 05/30/25 06:54 05/30/25 07:00 Temperature 36.8 C Pulse Rate 63 65 65 Respiratory Rate 14 14 14 Blood Pressure 162/60 H 152/57 H Pulse Oximetry 100 100 100 Oxygen Delivery Nasal Cannula Oxygen Flow Rate 6 Fraction of Inspired Oxygen 05/30/25 08:00 05/30/25 08:00 05/30/25 08:14 Temperature 36.8 C Pulse Rate 63 69 Respiratory Rate 16 Blood Pressure 117/66 Pulse Oximetry 100 94 Oxygen Delivery Nasal Cannula Oxygen Flow Rate 4 Fraction of Inspired Oxygen 36 05/30/25 09:00 Temperature 36.6 C Pulse Rate 88 Respiratory Rate 18 Blood Pressure Pulse Oximetry 89 L Oxygen Delivery Oxygen Flow Rate Fraction of Inspired Oxygen Exam Narrative: General: Pt is alert awake and in NAD Lungs/Chest: Trachea central Clear BS B/L, No crackles or wheezing. Cardiac: RRR. Normal S1 S2. No murmurs Circulation: The right AKA, left leg I was unable to feel the pulse, toes are cold, patient has a wound on posterior aspect of her leg which is superficial and does not appear infected. Patient does have some pain and tenderness around it Abdomen: Normal bowel sounds.. PEs Soft. NT. ND. Extremities: No edema in the left leg, peripheral vascular disease, ulcer on posterior aspect of left leg : Heller in place Neurologic: Follows commands. Moves all 4 extremities PERRL AO x3 no FND Skin: No Rash Results Labs 05/29/25 23:26 05/30/25 08:15 Labs: Short CBC 05/29/25 Range/Units 23:26 WBC 9.8 (4.5-10.0) K/mm3 Hgb 12.5 (12.0-15.0) g/dL Hct 36.6 L (37.0-47.0) % Plt Count 309 (150-375) k/mm3 BMP 05/29/25 05/30/25 05/30/25 23:26 01:12 02:16 Sodium 114 L* 115 L* 115 L* Potassium 4.0 4.5 Chloride 83 L 84 L Carbon Dioxide 28 28 BUN 29 H 29 H Creatinine 0.85 0.74 Glucose 123 H 145 H Calcium 7.7 L 7.6 L 05/30/25 05/30/25 04:12 08:15 Sodium 115 L* 116 L* Potassium 5.6 H 5.6 H Chloride 84 L 86 L Carbon Dioxide 26 26 BUN 30 H 24 H Creatinine 0.68 L 0.59 L Glucose 155 H 122 H Calcium 7.7 L 7.8 L Liver Function 05/29/25 Range/Units 23:26 Total Bilirubin 0.2 (0.2-1.3) mg/dL AST 30 (14-36) U/L ALT 21 (6-35) U/L Alkaline Phosphatase 108 (38-126) U/L Albumin 3.5 (3.5-5.1) g/dL Urine 05/30/25 Range/Units 00:22 Urine Color Yellow (Yellow) Urine Appearance Clear (Clear) Urine pH 6.0 (5.0-9.0) Ur Specific [place] 1.012 (1.001-1.035) Urine Protein Negative (Negative) mg/dL Urine Glucose (UA) Negative (Negative) mg/dL Quality VTE Prophylaxis VTE prophylaxis: pharmacologic ordered Hospitalist MIPS Advance Care Plan I have confirmed that the patient's Advanced Care Plan is present, code status is documented, or surrogate decision maker is listed in patient medical record.: Yes Medication Reconciliation I have utilized all available resources to obtain, update and review the patients current medications (includes all prescriptions, OTC, herbals, cannabis, and nutritional supplements).: Yes
[2025-05-30] MEDS: ASPIRIN 81 MG CHEWABLE TABLET PO (11:29)
[2025-05-30] MEDS: SODIUM CHLORIDE 500 MG TABLET 1000 MG PO ×2 (11:29→16:55)
[2025-05-30] MEDS: CHOLECALCIFEROL (VITAMIN D3) 25 MCG (1,000 UNITS) TABLET 50 MCG PO (11:29)
[2025-05-30] MEDS: SODIUM ZIRCONIUM CYCLOSILICATE 10 GM POWD.PACK PO (11:29)
[2025-05-30] MEDS: LEVOTHYROXINE SODIUM 100 MCG TABLET PO (11:29)
[2025-05-30] MEDS: LORATADINE 10 MG TABLET PO (11:29)
[2025-05-30] MEDS: ENOXAPARIN 40 MG/0.4 ML SYRINGE SUB-Q (11:29)
--- NOTE | 2025-05-30 12:00 | PM.CNNEP ---
Assessment and Plan Assessment and plan (1) Hyponatremia: Code(s): E87.1 - Hypo-osmolality and hyponatremia Status: Acute Assessment and Plan: as noted by admission sodium level acute on chronic: patient is aware of this issue (was told about on previous hospitalizations) present at least as far back as August 2021 baseline sodium ~ 126 - 132mmol/L in the last year has been as low as 123mmol/L with acute hospitalizations discharge sodium on August 2024 (from [facility]) was 131mmol/L multiple risk factors for low sodium: COPD/lung disease medications: - amitriptyline - buproprion - duloxetine - memantine - pain medications/narcotics (oxycodone) - donepezil - pramipexole thyroid disease history of CVA diabetes/hyperglyemia evaluation to date noted: TSH normal cortisol okay CT of head without acute findings CXR with evidence of possible chronic interstital disease urine sodium/studies pending SPEP/UPEP with immunofixation pending serum/urine osmolality pending doubt etiology of altered mentation on presentation to ER mentation significantly better w/o significant change in sodium level slow improvement noted with normal saline IVFs this argues in favor of a component of volume depletion... will temporarily add salt tabs for now follow trend of repeat/serial sodium levels (2) Altered mental status: Code(s): R41.82 - Altered mental status, unspecified Status: Acute Assessment and Plan: clinical improvement noted at this time suspect secondary to hypoglycemia resolved with administration of dextrose CO2 retention/narcosis possibly played a role given admission ABG possibly some improvement with BiPAP therapy medication related(?) holding sedative medications doubt related to low sodium (sodium not much different than on admission at this time and mentation better currently) CT of head negative medication rela (3) Hyperkalemia: Code(s): E87.5 - Hyperkalemia Status: Acute Assessment and Plan: resolved transiently noted by AM labs s/p gonzales follow trend of repeat K+ (4) Acute respiratory failure: Code(s): J96.00 - Acute respiratory failure, unspecified whether with hypoxia or hypercapnia Status: Acute Assessment and Plan: possibly due to CO2 retention/hypercapnia exacerbated by altered mental status improvement noted with application of BiPAP therapy weaned down to oxygen by nasal cannula use BiPAP PRN follow respiratory status (5) Hypoglycemia: Code(s): E16.2 - Hypoglycemia, unspecified Status: Acute Assessment and Plan: resolved presumed etiology of #2 thought to be related to administration error at nursing facility (given short acting insulin when patient had not eaten yet...) improvement noted with dextrose follow accu-cheks (6) Diabetes mellitus: Code(s): E11.9 - Type 2 diabetes mellitus without complications Status: Acute Assessment and Plan: see # follow accu-cheks glycemic control per front end engineer/hospitalist > 20 minutes spent reviewing the patient's electronic medical records including [facility] (recent hospitalizations in August 2024 and June 2024) and previous testing at other acute hospitall stays along with accompanying paper chart documentation with regard to her history of hyponatremia in conjunction with her known medical history. I will continue to follow the patient with you while she remains hospitalized and make further recommendations as deemed necessary. Thank you for allowing me to participate in the care of this patient. History of Present Illness Reason for Consult Consult date: 05/30/25 Reason for consult: hyponatremia Chief Complaint Chief complaint: Encephalopathy multifactorial, hyponatremia, CO2 r History of Present Illness Narrative: The patient is a 65-year-old female with a past medical history as outlined below who presented to [facility] Emergency Room from her nursing facility due to altered mental status. The nursing staff suspects that the patient may received a dose of her short-acting insulin rather than a long acting insulin and she had not eaten anything at the time of this medication administration. The patient used to be on an insulin pump but was switched to subcutaneous insulin while at the nursing facility. She was apparently found to be hypoglycemic by the time of EMS arrival with her blood sugar checked being 20. She was given dextrose fluids by EMS which apparently resulted in improvement in her mental status. She was subsequently transported to the emergency room for further assessment. By the time of her arrival to the emergency room, her blood sugars had stabilized but she appeared to be quite lethargic. She was otherwise hemodynamically stable but she was minimally arousable to verbal stimuli despite verbal and physical stimulation by the staff in the ER. Subsequent testing in the ER noted a white blood cell count of 9.8, hemoglobin 12.5, platelet count of 309, sodium 114, potassium 4.0, bicarb 28, BUN 29, creatinine 0.85, glucose 123, lactic acid 1.4, calcium 7.7, normal LFTs, and an albumin of 3.5. her ABG showed a pH of 7.26, pCO2 of 60, PO2 of 97.2 on 2 L of oxygen. Given her ongoing altered mental status, she was placed on BiPAP therapy and given 3% saline on the assumption that her low sodium level might be partly responsible for her encephalopathy. Repeat labs showed only minimal improvement in her sodium level up to 115 millimoles per L. she was subsequently started on normal saline IV fluids and continue on BiPAP therapy with subsequent admission to the intensive care unit for further evaluation and therapy. Overnight and earlier this morning, the patient's mental status returned to baseline. She has since been weaned off BiPAP therapy and is on oxygen by nasal cannula. She recalls the issue of her low blood sugar as well as the assumption that she was given the wrong insulin at her nursing facility but cannot remember the details after that. She does state though prior to the issue of her hypoglycemia, she was otherwise doing reasonably well. She relates that she is currently in the nursing facility due to wound care management that could not be arranged at home. Renal consultation was requested due to her acute on chronic hyponatremia. From my discussion with the patient, she is aware of her issues/ problems well with regard to hyponatremia and states that she has been told about it on her recent/previous hospitalizations. She was unable to give me specifics in terms of how low her sodium level normally runs but does admit that this was an issue on her last hospitalization [facility] in August of this year. She cannot recall or state if she has ever been told the etiology/cause of her low sodium level. As already mentioned above, on admission, her sodium level is 114 millimoles per L and despite a bolus of 3% saline her sodium level only minimally improved to 115 millimoles per L. her repeat labs this morning show her sodium level up to 116 millimoles per L. in spite of her low sodium level this morning, her mentation appears to be significantly better if not back to baseline which would argue that her low sodium level noted in the ER was not likely responsible for her encephalopathy/altered mental status. Currently, at the time my evaluation, she appears to be in no acute distress. Review of Systems Review of Systems: As per HPI. [facility] Past Medical History Medical History (Updated 05/31/25 @ 09:31 by Giana Vallejo MD) Dementia Hypothyroidism CVA (cerebral vascular accident) Peripheral arterial disease Anxiety Depression Hyperlipidemia Diabetes mellitus COPD (chronic obstructive pulmonary disease) Surgical History Surgical History (Updated 05/30/25 @ 10:14 by Facundo De León MD) History of right above knee amputation Family History Family History (Updated 05/30/25 @ 07:02 by Marva Castellano RN) Father Pacemaker Congestive heart failure Father Hypertension Sibling Hypertension Social History Social History Smoking packs per day: 1 Smoking cigarettes per day: 20.0 Years smoked: 30 Smoking pack-years: 30.00 Smoking status: Former smoker Tobacco type: cigarettes Second hand tobacco smoke exposure: Yes Alcohol intake: never Substance use: never Lack of Transportation: No Lack of Food: Never True Current Housing: I Have Housing Concerned About Future Housing: No Difficulty Paying Gas/Electric Bills: No Difficulty Paying for Meds: No Currently Unemployed: No Education: Associate Degree Difficulty w/ Childcare or Family Care: No Spiritual care concerns: No Meds Home Medications and Allergies Home Medications ?Medication ?Instructions ?Recorded ?Confirmed ?Type amitriptyline 50 mg tablet 50 mg PO HS 05/30/25 05/30/25 History aspirin 81 mg capsule 81 mg PO DAILY 05/30/25 05/30/25 History atorvastatin 40 mg tablet 40 mg PO HS 05/30/25 05/30/25 History bupropion HCl 150 mg 24 hr tablet, 150 mg PO DAILY 05/30/25 05/30/25 History extended release cholecalciferol (vitamin D3) 1,250 50,000 unit PO DAILY 05/30/25 05/30/25 History mcg (50,000 unit) oral wafer cholecalciferol (vitamin D3) 50 50 mcg PO DAILY 05/30/25 05/30/25 History mcg (2,000 unit) chewable tablet donepezil 10 mg tablet 10 mg PO HS 05/30/25 05/30/25 History duloxetine 20 mg capsule,delayed 20 mg PO BID 05/30/25 05/30/25 History release fluticasone propionate 45 2 puff inhalation BID PRN 05/30/25 05/30/25 History mcg-salmeterol 21 mcg/actuation shortness of breath HFA inhaler (Advair HFA) furosemide 40 mg tablet 40 mg PO DAILY 05/30/25 05/30/25 History guaifenesin 400 mg tablet (Chest 400 mg PO Q6H PRN congestion 05/30/25 05/30/25 History Congestion Relief) insulin aspart U-100 100 unit/mL 1 sliding scale dose subcut ACHS 05/30/25 05/30/25 History (3 mL) subcutaneous pen insulin degludec 100 unit/mL (3 25 unit subcut DAILY 05/30/25 05/30/25 History mL) subcutaneous pen insulin degludec 100 unit/mL (3 30 unit subcut HS 05/30/25 05/30/25 History mL) subcutaneous pen ipratropium 20 mcg-albuterol 100 1 puff inhalation BID PRN 05/30/25 05/30/25 History mcg/actuation mist for inhalation shortness of breath or wheezing (Combivent Respimat) levothyroxine 100 mcg tablet 100 mcg PO DAILY 05/30/25 05/30/25 History levothyroxine 75 mcg tablet 75 mcg PO DAILY 05/30/25 05/30/25 History lisinopril 20 mg tablet 20 mg PO DAILY 05/30/25 05/30/25 History loratadine 10 mg tablet 10 mg PO DAILY 05/30/25 05/30/25 History (Allerclear) memantine 10 mg tablet 10 mg PO BID 05/30/25 05/30/25 History metoclopramide HCl 10 mg tablet 10 mg PO AC 05/30/25 05/30/25 History oxycodone 5 mg tablet 5 mg PO Q4H PRN pain 05/30/25 05/30/25 History polyethylene glycol 3350 17 17 g PO DAILY PRN constipation 05/30/25 05/30/25 History gram/dose oral powder (Miralax) pramipexole 0.5 mg tablet 0.5 mg PO TID 05/30/25 05/30/25 History pregabalin 300 mg capsule (Lyrica) 300 mg PO TID 05/30/25 05/30/25 History sodium chloride 0.65 % nasal spray 2 spray intranasal Q2H PRN dry 05/30/25 05/30/25 History aerosol (Bowie Saline) nasal passages Allergies Allergy/AdvReac Type Severity Reaction Status Date / Time cephalexin (From Keflex) Allergy Intermediate Hives Verified 05/30/25 09:50 Cephalosporins Allergy Intermediate Rash Verified 05/30/25 09:50 Vital Signs Vital Signs Temp Pulse Resp BP Pulse Ox O2 Del Method O2 Flow Rate 05/30/25 12:00 98 F 69 15 186/63 H 98 05/30/25 11:00 98 F 74 17 153/58 H 100 05/30/25 10:00 98 F 69 14 169/64 H 97 05/30/25 10:00 69 05/30/25 09:00 98 F 88 18 89 L 05/30/25 08:14 94 Nasal Cannula 4 05/30/25 08:00 69 05/30/25 08:00 98.2 F 63 16 117/66 100 05/30/25 07:00 98.2 F 65 14 152/57 H 100 05/30/25 06:54 65 14 100 Nasal Cannula 6 05/30/25 06:48 63 14 162/60 H 100 05/30/25 05:45 98.0 F 67 20 100 05/30/25 05:32 98.0 F 63 18 136/63 100 05/30/25 05:30 98.0 F 67 16 100 05/30/25 05:21 98.0 F 65 20 136/61 99 05/30/25 05:16 73 17 97 BiPAP 05/30/25 05:15 97.9 F 68 16 100 05/30/25 05:12 97.9 F 63 19 110/98 H 99 05/30/25 05:02 97.9 F 69 23 H 102/88 100 05/30/25 05:00 97.9 F 64 20 99 05/30/25 04:52 97.8 F 77 20 138/121 H 99 05/30/25 04:45 97.8 F 64 16 100 05/30/25 04:42 97.7 F 61 17 152/65 H 100 05/30/25 04:32 97.6 F 65 15 136/60 100 05/30/25 04:30 97.6 F 67 17 100 05/30/25 04:21 97.4 F L 68 17 164/67 H 100 05/30/25 04:15 97.2 F L 64 16 100 05/30/25 04:11 97.1 F L 63 20 120/71 100 05/30/25 04:03 96.9 F L 60 11 L 103/87 100 05/30/25 04:01 96.8 F L 58 L 12 83/73 L 100 05/30/25 04:00 96.8 F L 58 L 11 L 100 05/30/25 03:52 96.6 F L 58 L 12 120/54 L 100 05/30/25 03:45 96.5 F L 58 L 12 100 05/30/25 03:42 96.4 F L 58 L 12 128/64 100 05/30/25 03:32 96.2 F L 58 L 12 112/64 100 05/30/25 03:30 96.2 F L 58 L 12 100 05/30/25 03:22 96.0 F L 59 L 13 106/57 L 100 05/30/25 03:15 95.9 F L 59 L 12 100 05/30/25 03:12 95.8 F L 59 L 14 125/105 H 100 05/30/25 03:01 95.6 F L 62 19 131/105 H 100 05/30/25 03:00 95.6 F L 58 L 19 100 05/30/25 02:52 95.4 F L 58 L 17 123/82 100 05/30/25 02:50 62 13 100 BiPAP 05/30/25 02:46 95.3 F L 61 14 100 05/30/25 02:45 95.3 F L 62 16 110/84 100 05/30/25 02:30 95.1 F L 59 L 17 100 05/30/25 02:22 95.0 F L 62 20 142/68 H 100 05/30/25 02:16 94.9 F L 65 15 05/30/25 02:15 94.9 F L 59 L 11 L 163/58 H 100 05/30/25 02:02 94.7 F L 58 L 12 154/131 H 05/30/25 02:00 94.8 F L 58 L 10 L 05/30/25 01:52 94.7 F L 60 11 L 163/128 H 05/30/25 01:45 94.6 F L 58 L 10 L 05/30/25 01:42 94.6 F L 59 L 11 L 153/49 H 100 05/30/25 01:37 94.6 F L 58 L 11 L 151/83 H 100 05/30/25 01:32 94.6 F L 56 L 11 L 140/58 L 05/30/25 01:30 94.6 F L 57 L 10 L 100 05/30/25 01:27 94.6 F L 59 L 11 L 127/68 100 05/30/25 01:22 94.5 F L 56 L 10 L 134/98 H 100 05/30/25 01:17 94.5 F L 58 L 10 L 141/132 H 100 05/30/25 01:15 94.5 F L 57 L 10 L 05/30/25 01:11 94.5 F L 57 L 10 L 128/109 H 100 05/30/25 00:50 56 L 13 97 BiPAP 05/29/25 23:20 16 95 2 05/29/25 23:20 98.1 F 58 L 18 122/84 91 Room Air Exam Narrative: GENERAL APPEARANCE: large and well developed well nourished female in no acute distress HEENT: normocephalic, atraumatic, normal conjunctiva and sclera, nares patient NECK: no lymphadenopathy, thyromegaly, or JVD MOUTH: normal lips, teeth, and gums CARDIOVASCULAR: RRR, normal S1 and S2, no rub RESPIRATORY: coarse breath sounds ABDOMEN: soft, nontender, nondistended, positive bowel sounds present EXTREMITIES: no evidence of cyanosis, clubbing, or edema; s/p right AKA NEUROLOGICAL: awake and alert; CN II - XII intact bilaterally; no focal deficits noted Results Lab Results 05/31/25 06:27 05/31/25 14:43 Lab results: Most recent lab results ABG pH 7.340 (7.350-7.450) L 05/30/25 06:09 ABG pCO2 53.1 mmHg (35.0-45.0) H 05/30/25 06:09 ABG pO2 93.6 mmHg (80.0-100.0) 05/30/25 06:09 ABG HCO3 26.7 mEq/l (22.0-26.0) H 05/30/25 06:09 ABG O2 Saturation 96.6 % (95.0-100.0) 05/30/25 06:09 Calcium 6.4 mg/dL (8.4-10.2) L 05/30/25 17:34 Urine Creatinine 22.4 mg/dL 05/30/25 17:35
[2025-05-30 12:55] LABS: Ammonia < 9 umol/L (9-30)
[2025-05-30 13:14] LABS: Anion Gap 4 mmol/L (4-12); Blood Urea Nitrogen 18 mg/dL (7-17); Calcium 7.9 mg/dL (8.4-10.2); Carbon Dioxide 29 mmol/L (22-30); Chloride 85 mmol/L (98-107); Estimated CRCL calculation 113 ml/min; Estimated Glomerular Filt Rate > 60; Glucose 185 mg/dL (65-110); Potassium 4.8 mmol/L (3.4-5.0); Sodium 118 mmol/L (137-145)
[2025-05-30] MEDS: INSULIN ASPART (*BKC) 100 UNITS/ML SUB-Q ×2 (16:55→20:37)
[2025-05-30 17:56] LABS: Total Protein Urine Random 16 mg/dL; Ur Ttl Prot Creatinine Ratio 0.71 mg/mg (0-0.20)
[2025-05-30 17:58] LABS: Urea Random Urine 324 MG/DL
[2025-05-30 18:24] LABS: Anion Gap 2 mmol/L (4-12); Blood Urea Nitrogen 15 mg/dL (7-17); Calcium 6.4 mg/dL (8.4-10.2); Carbon Dioxide 25 mmol/L (22-30); Chloride 95 mmol/L (98-107); Estimated CRCL calculation 101 ml/min; Estimated Glomerular Filt Rate > 60; Glucose 215 mg/dL (65-110); Potassium 4.1 mmol/L (3.4-5.0); Sodium 122 mmol/L (137-145)
--- NOTE | 2025-05-30 18:50 | PM.IMHP ---
H&P: HPI History of Present Illness Date/Time: 05/30/25 18:50 Chief Complaint: AMS Narrative: CC 5-year-old female past medical history of COPD, dementia, hypothyroidism, CVA, peripheral artery disease, anxiety, depression, type 2 diabetes, hyperlipidemia, status post right AKA was mostly on account of altered mental status. Patient reported she was in her usual state of felt a fci and was woken up about 11:00 p.m. yesterday with locomotion and EMS at the bedside next she was told her blood sugar was low. Otherwise she denies any chest pain shortness but no nausea no vomiting no diarrhea dysuria no focal symptoms. Blood sugar on scene by EMS was 20. Patient was given dextrose infusion ER evaluation notable for temperature 98.1?, pulse rate 58, respiratory rate 18, saturating 91% on 2 L, blood pressure 122/84 Labs notable for WBC 9.8, ABG 7.2 cc/60/97/26, repeat was 7.34/53.1/93.426.7, sodium 114, potassium 4.0, blood sugar [address] head no acute changes. Chest x-ray shows or pulmonary edema pneumonitis versus chronic interstitial disease. Review of Systems Review of Systems: Other systems reviewed and negative aside other history above. [facility] Past Medical History Medical History (Updated 05/30/25 @ 10:14 by Facundo De León MD) COPD (chronic obstructive pulmonary disease) Dementia Hypothyroidism CVA (cerebral vascular accident) Peripheral arterial disease Anxiety Depression Hyperlipidemia Diabetes mellitus Surgical History Surgical History (Updated 05/30/25 @ 10:14 by Facundo De León MD) History of right above knee amputation Family History Family History (Updated 05/30/25 @ 07:02 by Marva Castellano RN) Father Pacemaker Congestive heart failure Father Hypertension Sibling Hypertension Social History Social History Smoking packs per day: 1 Smoking cigarettes per day: 20.0 Years smoked: 30 Smoking pack-years: 30.00 Smoking status: Former smoker Tobacco type: cigarettes Second hand tobacco smoke exposure: Yes Alcohol intake: never Substance use: never Lack of Transportation: No Lack of Food: Never True Current Housing: I Have Housing Concerned About Future Housing: No Difficulty Paying Gas/Electric Bills: No Difficulty Paying for Meds: No Currently Unemployed: No Education: Associate Degree Difficulty w/ Childcare or Family Care: No Spiritual care concerns: No Meds Home Medications and Allergies Home Medications ?Medication ?Instructions ?Recorded ?Confirmed ?Type amitriptyline 50 mg tablet 50 mg PO HS 05/30/25 05/30/25 History aspirin 81 mg capsule 81 mg PO DAILY 05/30/25 05/30/25 History atorvastatin 40 mg tablet 40 mg PO HS 05/30/25 05/30/25 History bupropion HCl 150 mg 24 hr tablet, 150 mg PO DAILY 05/30/25 05/30/25 History extended release cholecalciferol (vitamin D3) 1,250 50,000 unit PO DAILY 05/30/25 05/30/25 History mcg (50,000 unit) oral wafer cholecalciferol (vitamin D3) 50 50 mcg PO DAILY 05/30/25 05/30/25 History mcg (2,000 unit) chewable tablet donepezil 10 mg tablet 10 mg PO HS 05/30/25 05/30/25 History duloxetine 20 mg capsule,delayed 20 mg PO BID 05/30/25 05/30/25 History release fluticasone propionate 45 2 puff inhalation BID PRN 05/30/25 05/30/25 History mcg-salmeterol 21 mcg/actuation shortness of breath HFA inhaler (Advair HFA) furosemide 40 mg tablet 40 mg PO DAILY 05/30/25 05/30/25 History guaifenesin 400 mg tablet (Chest 400 mg PO Q6H PRN congestion 05/30/25 05/30/25 History Congestion Relief) insulin aspart U-100 100 unit/mL 1 sliding scale dose subcut ACHS 05/30/25 05/30/25 History (3 mL) subcutaneous pen insulin degludec 100 unit/mL (3 25 unit subcut DAILY 05/30/25 05/30/25 History mL) subcutaneous pen insulin degludec 100 unit/mL (3 30 unit subcut HS 05/30/25 05/30/25 History mL) subcutaneous pen ipratropium 20 mcg-albuterol 100 1 puff inhalation BID PRN 05/30/25 05/30/25 History mcg/actuation mist for inhalation shortness of breath or wheezing (Combivent Respimat) levothyroxine 100 mcg tablet 100 mcg PO DAILY 05/30/25 05/30/25 History levothyroxine 75 mcg tablet 75 mcg PO DAILY 05/30/25 05/30/25 History lisinopril 20 mg tablet 20 mg PO DAILY 05/30/25 05/30/25 History loratadine 10 mg tablet 10 mg PO DAILY 05/30/25 05/30/25 History (Allervenusar) memantine 10 mg tablet 10 mg PO BID 05/30/25 05/30/25 History metoclopramide HCl 10 mg tablet 10 mg PO AC 05/30/25 05/30/25 History oxycodone 5 mg tablet 5 mg PO Q4H PRN pain 05/30/25 05/30/25 History polyethylene glycol 3350 17 17 g PO DAILY PRN constipation 05/30/25 05/30/25 History gram/dose oral powder (Miralax) pramipexole 0.5 mg tablet 0.5 mg PO TID 05/30/25 05/30/25 History pregabalin 300 mg capsule (Lyrica) 300 mg PO TID 05/30/25 05/30/25 History sodium chloride 0.65 % nasal spray 2 spray intranasal Q2H PRN dry 05/30/25 05/30/25 History aerosol (Dazey Saline) nasal passages Allergies Allergy/AdvReac Type Severity Reaction Status Date / Time cephalexin (From [employer]) Allergy Intermediate Hives Verified 05/30/25 09:50 Cephalosporins Allergy Intermediate Rash Verified 05/30/25 09:50 Vital Signs Vital Signs - 24 hr 05/29/25 23:20 05/29/25 23:20 05/30/25 00:50 Temperature 98.1 F Pulse Rate 58 L 56 L Respiratory Rate 18 16 13 Blood Pressure 122/84 Pulse Oximetry 91 95 97 Oxygen Delivery Room Air BiPAP Oxygen Flow Rate 2 Fraction of Inspired Oxygen 05/30/25 01:11 05/30/25 01:15 05/30/25 01:17 Temperature 94.5 F L 94.5 F L 94.5 F L Pulse Rate 57 L 57 L 58 L Respiratory Rate 10 L 10 L 10 L Blood Pressure 128/109 H 141/132 H Pulse Oximetry 100 100 Oxygen Delivery Oxygen Flow Rate Fraction of Inspired Oxygen 05/30/25 01:22 05/30/25 01:27 05/30/25 01:30 Temperature 94.5 F L 94.6 F L 94.6 F L Pulse Rate 56 L 59 L 57 L Respiratory Rate 10 L 11 L 10 L Blood Pressure 134/98 H 127/68 Pulse Oximetry 100 100 100 Oxygen Delivery Oxygen Flow Rate Fraction of Inspired Oxygen 05/30/25 01:32 05/30/25 01:37 05/30/25 01:42 Temperature 94.6 F L 94.6 F L 94.6 F L Pulse Rate 56 L 58 L 59 L Respiratory Rate 11 L 11 L 11 L Blood Pressure 140/58 L 151/83 H 153/49 H Pulse Oximetry 100 100 Oxygen Delivery Oxygen Flow Rate Fraction of Inspired Oxygen 05/30/25 01:45 05/30/25 01:52 05/30/25 02:00 Temperature 94.6 F L 94.7 F L 94.8 F L Pulse Rate 58 L 60 58 L Respiratory Rate 10 L 11 L 10 L Blood Pressure 163/128 H Pulse Oximetry Oxygen Delivery Oxygen Flow Rate Fraction of Inspired Oxygen 05/30/25 02:02 05/30/25 02:15 05/30/25 02:16 Temperature 94.7 F L 94.9 F L 94.9 F L Pulse Rate 58 L 59 L 65 Respiratory Rate 12 11 L 15 Blood Pressure 154/131 H 163/58 H Pulse Oximetry 100 Oxygen Delivery Oxygen Flow Rate Fraction of Inspired Oxygen 05/30/25 02:22 05/30/25 02:30 05/30/25 02:45 Temperature 95.0 F L 95.1 F L 95.3 F L Pulse Rate 62 59 L 62 Respiratory Rate 20 17 16 Blood Pressure 142/68 H 110/84 Pulse Oximetry 100 100 100 Oxygen Delivery Oxygen Flow Rate Fraction of Inspired Oxygen 05/30/25 02:46 05/30/25 02:50 05/30/25 02:52 Temperature 95.3 F L 95.4 F L Pulse Rate 61 62 58 L Respiratory Rate 14 13 17 Blood Pressure 123/82 Pulse Oximetry 100 100 100 Oxygen Delivery BiPAP Oxygen Flow Rate Fraction of Inspired Oxygen 05/30/25 03:00 05/30/25 03:01 05/30/25 03:12 Temperature 95.6 F L 95.6 F L 95.8 F L Pulse Rate 58 L 62 59 L Respiratory Rate 19 19 14 Blood Pressure 131/105 H 125/105 H Pulse Oximetry 100 100 100 Oxygen Delivery Oxygen Flow Rate Fraction of Inspired Oxygen 05/30/25 03:15 05/30/25 03:22 05/30/25 03:30 Temperature 95.9 F L 96.0 F L 96.2 F L Pulse Rate 59 L 59 L 58 L Respiratory Rate 12 13 12 Blood Pressure 106/57 L Pulse Oximetry 100 100 100 Oxygen Delivery Oxygen Flow Rate Fraction of Inspired Oxygen 05/30/25 03:32 05/30/25 03:42 05/30/25 03:45 Temperature 96.2 F L 96.4 F L 96.5 F L Pulse Rate 58 L 58 L 58 L Respiratory Rate 12 12 12 Blood Pressure 112/64 128/64 Pulse Oximetry 100 100 100 Oxygen Delivery Oxygen Flow Rate Fraction of Inspired Oxygen 05/30/25 03:52 05/30/25 04:00 05/30/25 04:01 Temperature 96.6 F L 96.8 F L 96.8 F L Pulse Rate 58 L 58 L 58 L Respiratory Rate 12 11 L 12 Blood Pressure 120/54 L 83/73 L Pulse Oximetry 100 100 100 Oxygen Delivery Oxygen Flow Rate Fraction of Inspired Oxygen 05/30/25 04:03 05/30/25 04:11 05/30/25 04:15 Temperature 96.9 F L 97.1 F L 97.2 F L Pulse Rate 60 63 64 Respiratory Rate 11 L 20 16 Blood Pressure 103/87 120/71 Pulse Oximetry 100 100 100 Oxygen Delivery Oxygen Flow Rate Fraction of Inspired Oxygen 05/30/25 04:21 05/30/25 04:30 05/30/25 04:32 Temperature 97.4 F L 97.6 F 97.6 F Pulse Rate 68 67 65 Respiratory Rate 17 17 15 Blood Pressure 164/67 H 136/60 Pulse Oximetry 100 100 100 Oxygen Delivery Oxygen Flow Rate Fraction of Inspired Oxygen 05/30/25 04:42 05/30/25 04:45 05/30/25 04:52 Temperature 97.7 F 97.8 F 97.8 F Pulse Rate 61 64 77 Respiratory Rate 17 16 20 Blood Pressure 152/65 H 138/121 H Pulse Oximetry 100 100 99 Oxygen Delivery Oxygen Flow Rate Fraction of Inspired Oxygen 05/30/25 05:00 05/30/25 05:02 05/30/25 05:12 Temperature 97.9 F 97.9 F 97.9 F Pulse Rate 64 69 63 Respiratory Rate 20 23 H 19 Blood Pressure 102/88 110/98 H Pulse Oximetry 99 100 99 Oxygen Delivery Oxygen Flow Rate Fraction of Inspired Oxygen 05/30/25 05:15 05/30/25 05:16 05/30/25 05:21 Temperature 97.9 F 98.0 F Pulse Rate 68 73 65 Respiratory Rate 16 17 20 Blood Pressure 136/61 Pulse Oximetry 100 97 99 Oxygen Delivery BiPAP Oxygen Flow Rate Fraction of Inspired Oxygen 05/30/25 05:30 05/30/25 05:32 05/30/25 05:45 Temperature 98.0 F 98.0 F 98.0 F Pulse Rate 67 63 67 Respiratory Rate 16 18 20 Blood Pressure 136/63 Pulse Oximetry 100 100 100 Oxygen Delivery Oxygen Flow Rate Fraction of Inspired Oxygen 05/30/25 06:48 05/30/25 06:54 05/30/25 07:00 Temperature 98.2 F Pulse Rate 63 65 65 Respiratory Rate 14 14 14 Blood Pressure 162/60 H 152/57 H Pulse Oximetry 100 100 100 Oxygen Delivery Nasal Cannula Oxygen Flow Rate 6 Fraction of Inspired Oxygen 05/30/25 08:00 05/30/25 08:00 05/30/25 08:14 Temperature 98.2 F Pulse Rate 63 69 Respiratory Rate 16 Blood Pressure 117/66 Pulse Oximetry 100 94 Oxygen Delivery Nasal Cannula Oxygen Flow Rate 4 Fraction of Inspired Oxygen 36 05/30/25 09:00 05/30/25 10:00 05/30/25 10:00 Temperature 98 F 98 F Pulse Rate 88 69 69 Respiratory Rate 18 14 Blood Pressure 169/64 H Pulse Oximetry 89 L 97 Oxygen Delivery Oxygen Flow Rate Fraction of Inspired Oxygen 05/30/25 11:00 05/30/25 12:00 05/30/25 12:00 Temperature 98 F 98 F Pulse Rate 74 77 69 Respiratory Rate 17 15 Blood Pressure 153/58 H 186/63 H Pulse Oximetry 100 98 Oxygen Delivery Oxygen Flow Rate Fraction of Inspired Oxygen 05/30/25 12:00 05/30/25 13:00 05/30/25 14:00 Temperature 98.1 F Pulse Rate 77 79 84 Respiratory Rate 13 20 Blood Pressure 157/89 H Pulse Oximetry 98 96 Oxygen Delivery Nasal Cannula Oxygen Flow Rate 3 Fraction of Inspired Oxygen 05/30/25 14:00 05/30/25 15:00 05/30/25 16:00 Temperature 98.1 F 98.4 F Pulse Rate 79 65 74 Respiratory Rate 20 15 Blood Pressure 167/58 H 149/60 H Pulse Oximetry 96 92 Oxygen Delivery Oxygen Flow Rate Fraction of Inspired Oxygen 05/30/25 16:00 05/30/25 16:00 05/30/25 17:00 Temperature 98.6 F 98.6 F Pulse Rate 74 74 75 Respiratory Rate 17 15 19 Blood Pressure 129/61 153/56 H Pulse Oximetry 100 100 98 Oxygen Delivery Nasal Cannula Oxygen Flow Rate 2 Fraction of Inspired Oxygen 05/30/25 18:00 05/30/25 18:00 Temperature Pulse Rate 74 75 Respiratory Rate 18 Blood Pressure 126/58 L Pulse Oximetry 99 Oxygen Delivery Oxygen Flow Rate Fraction of Inspired Oxygen Exam Narrative: General: alert and comfortable Eyes: EOMI, PERRLA ENNT External ears normal, Neck is supple, no masses, Respiratory systems: Clear to auscultation Cardiovascular S1, S2, normal rhythm, no murmur, rub, or gallop; no thrill or palpable murmurs on palpation. Gastrointestinal: soft, non-tender, and non-distended abdomen with no masses; BS present Skin: no rash, lesions, ulcerations, subcutaneous nodules or induration Musculoskeletal: R AKA Neurologic: Alert and oriented x3, non focal Mental Status Exam: normal affect H&P: Results Labs Labs: Short CBC 05/29/25 Range/Units 23:26 WBC 9.8 (4.5-10.0) K/mm3 Hgb 12.5 (12.0-15.0) g/dL Hct 36.6 L (37.0-47.0) % Plt Count 309 (150-375) k/mm3 [facility] [place] 05/29/25 05/30/25 05/30/25 23:26 01:12 02:16 Sodium 114 L* 115 L* 115 L* Potassium 4.0 4.5 Chloride 83 L 84 L Carbon Dioxide 28 28 BUN 29 H 29 H Creatinine 0.85 0.74 Glucose 123 H 145 H Calcium 7.7 L 7.6 L 05/30/25 05/30/25 05/30/25 04:12 08:15 12:36 Sodium 115 L* 116 L* 118 L* Potassium 5.6 H 5.6 H 4.8 Chloride 84 L 86 L 85 L Carbon Dioxide 26 26 29 BUN 30 H 24 H 18 H Creatinine 0.68 L 0.59 L 0.44 L Glucose 155 H 122 H 185 H Calcium 7.7 L 7.8 L 7.9 L 05/30/25 17:34 Sodium 122 L Potassium 4.1 Chloride 95 L Carbon Dioxide 25 BUN 15 Creatinine 0.50 L Glucose 215 H Calcium 6.4 L Liver Function 05/29/25 Range/Units 23:26 Total Bilirubin 0.2 (0.2-1.3) mg/dL AST 30 (14-36) U/L ALT 21 (6-35) U/L Alkaline Phosphatase 108 (38-126) U/L Albumin 3.5 (3.5-5.1) g/dL Urine 05/30/25 Range/Units 00:22 Urine Color Yellow (Yellow) Urine Appearance Clear (Clear) Urine pH 6.0 (5.0-9.0) Ur Specific [place] 1.012 (1.001-1.035) Urine Protein Negative (Negative) mg/dL Urine Glucose (UA) Negative (Negative) mg/dL Assessment and Plan Assessment and plan (1) Acute respiratory acidosis: Code(s): J96.02 - Acute respiratory failure with hypercapnia Status: Acute (2) Acute hyponatremia: Code(s): E87.1 - Hypo-osmolality and hyponatremia Status: Acute Plan AMS Likely from hypoglycemia Hypoglycemia resolved and mental status resolved monitor blood sugar closely CT head unremarkable Hyponatremia F/u CT chest Continue Sodium tablets COPD exacerbation with acute hypercapnic respiratory failure Respiratory acidosis Abg showed respiratory acidosis Duoneb, Symbicort and Prednisone titrate oxygen with clinical course monitor closely Hypothyroidism Continue home meds PAD s/p R AKA Dementia continue home meds DM2 SSi witih accucheks and adjust with clinical course Anxiety/Depression Continue home meds AMS related to hypoglyemia HLD continue Statin CVA continue home meds DVT prophylaxis on Lovenox Full code SDM: Richard Hernandez Hospitalist MIPS Advance Care Plan I have confirmed that the patient's Advanced Care Plan is present, code status is documented, or surrogate decision maker is listed in patient medical record.: Yes Medication Reconciliation I have utilized all available resources to obtain, update and review the patients current medications (includes all prescriptions, OTC, herbals, cannabis, and nutritional supplements).: Yes
[2025-05-30] MEDS: ATORVASTATIN 40 MG TABLET PO (20:23)
[2025-05-30] MEDS: FLUTICASONE/SALMETEROL 115-21 MCG INHALER 1 PUFF 2 PUFF INHALATION (20:23)
[2025-05-30] MEDS: IPRATROPIUM 0.5 MG/ALBUTEROL SULFATE 2.5 MG (BASE) AMPUL.NEB 3 ML INHALATION (20:23)
[2025-05-30] MEDS: PREGABALIN (*CRX) 75 MG CAPSULE 300 MG PO (20:23)
[2025-05-30] MEDS: AMITRIPTYLINE HCL 25 MG TABLET 50 MG PO (20:24)
[2025-05-30] MEDS: DONEPEZIL HCL 10 MG TABLET PO (20:24)
[2025-05-30] MEDS: MEMANTINE 10 MG TABLET PO (20:24)
[2025-05-30 23:46] LABS: Sodium 120 mmol/L (137-145)
[2025-05-31] VITALS (29 sets, daily range): BP systolic 112–175; BP diastolic 48–83; PULSE 57–96; RESP 12–28; TEMP 36.4–37.3; O2SAT 89–100
[2025-05-31] MEDS: SODIUM CHLORIDE 0.9% IV 1,000 ML 75 ML IV CONT ×2 (00:05→22:09)
[2025-05-31] MEDS: IPRATROPIUM 0.5 MG/ALBUTEROL SULFATE 2.5 MG (BASE) AMPUL.NEB 3 ML INHALATION ×4 (02:31→20:30)
[2025-05-31] MEDS: LEVOTHYROXINE SODIUM 75 MCG TABLET PO (06:02)
[2025-05-31] MEDS: METOCLOPRAMIDE HCL 10 MG TABLET PO ×3 (06:02→16:56)
[2025-05-31] MEDS: LEVOTHYROXINE SODIUM 100 MCG TABLET PO (06:02)
[2025-05-31 06:37] LABS: Hematocrit 44.9 % (37.0-47.0); Hemoglobin 14.2 g/dL (12.0-15.0); Mean Corpuscular HGB Conc 31.6 g/dl (32-36); Mean Corpuscular Hemoglobin 29.4 pg (26-34); Mean Corpuscular Volume 93.0 fl (80-100); Platelet Count Result 315 k/mm3 (150-375); Red Blood Count 4.83 M/mm3 (4.2-5.4); White Blood Count 5.9 K/mm3 (4.5-10.0)
[2025-05-31 08:01] LABS: Alanine Aminotransferase 20 U/L (6-35); Albumin Level 3.3 g/dL (3.5-5.1); Alkaline Phosphatase 127 U/L (38-126); Anion Gap 3 mmol/L (4-12); Aspartate Amino Transferase 26 U/L (14-36); Bilirubin,Total 0.5 mg/dL (0.2-1.3); Blood Urea Nitrogen 12 mg/dL (7-17); Calcium 7.9 mg/dL (8.4-10.2); Carbon Dioxide 29 mmol/L (22-30); Chloride 93 mmol/L (98-107); Estimated CRCL calculation 114 ml/min; Estimated Glomerular Filt Rate > 60; Glucose 171 mg/dL (65-110); Magnesium 2.0 mg/dL (1.6-2.3); Potassium 4.4 mmol/L (3.4-5.0); Sodium 125 mmol/L (137-145); Total Protein 6.4 g/dL (6.3-8.2)
[2025-05-31] MEDS: FLUTICASONE/SALMETEROL 115-21 MCG INHALER 1 PUFF 2 PUFF INHALATION ×2 (08:19→19:54)
--- NOTE | 2025-05-31 08:28 | WPDINTPN ---
Progress Note: A&P Assessment and Plan (1) Encephalopathy acute: Code(s): G93.40 - Encephalopathy, unspecified Status: Acute Assessment and Plan: Presented with acute encephalopathy which is likely secondary to hypoglycemia as it has resolved after administration of dextrose. Patient also has is hyponatremia but hyponatremia is still present and mental status has improved his suggesting against the etiology Head CT was negative ABG reviewed TSH and ammonia normal Hyponatremia management as below Hold sedatives Patient now weighs 2 back to baseline (2) Hyponatremia: Code(s): E87.1 - Hypo-osmolality and hyponatremia Status: Acute Assessment and Plan: Patient presented with hyponatremia with normal renal function Differential includes dehydration as patient is on diuretics vs medication induced as patient is on several psychiatric medications vs SIADH Nephrology has been managing sodium till now patient is currently off any fluids in sodium is improved to 125. Will defer further evaluation and management to Nephrology. Pending CT chest as patient has heavy history of smoking TSH is normal, random cortisol level is in normal range (3) COPD (chronic obstructive pulmonary disease): Code(s): J44.9 - Chronic obstructive pulmonary disease, unspecified Status: Acute Assessment and Plan: Bronchodilators, Advair (4) Hypoglycemia: Code(s): E16.2 - Hypoglycemia, unspecified Status: Acute Assessment and Plan: Patient presented with altered mental status and hypoglycemia. Hypoglycemia appears to be secondary to error with insulin. Blood sugar has now improved after administration of dextrose and patient resuming her diet. She is on sliding scale. I will resume Lantus at a low rate once blood sugars are high (5) Diabetes mellitus: Code(s): E11.9 - Type 2 diabetes mellitus without complications Status: Acute Assessment and Plan: See above (6) Respiratory failure: Code(s): J96.90 - Respiratory failure, unspecified, unspecified whether with hypoxia or hypercapnia Status: Acute Assessment and Plan: Patient has history of COPD and presented with respiratory acidosis which could have been exacerbated by her encephalopathy. Patient was placed on BiPAP. ABG has improved. Patient is now awake alert and off oxygen. Will use BiPAP on p.r.n. basis if needed. Chest x-ray was clear. CT chest done for hyponatremia since patient has a heavy history of smoking and report pending (7) Hyperkalemia: Code(s): E87.5 - Hyperkalemia Status: Acute Assessment and Plan: Pt given lokelma. Potassium normalized Neprhology managing (8) Hyperlipidemia: Code(s): E78.5 - Hyperlipidemia, unspecified Status: Acute Assessment and Plan: Continue statin (9) Depression: Code(s): F32.A - Depression, unspecified Status: Acute Assessment and Plan: Hold psychiatric medications (10) Anxiety: Code(s): F41.9 - Anxiety disorder, unspecified Status: Acute Assessment and Plan: Hold medications and monitor at this time (11) Peripheral arterial disease: Code(s): I73.9 - Peripheral vascular disease, unspecified Status: Acute Assessment and Plan: Aspirin statin (12) Hypothyroidism: Code(s): E03.9 - Hypothyroidism, unspecified Status: Acute Assessment and Plan: Continue levothyroxine (13) Dementia: Code(s): F03.90 - Unspecified dementia, unspecified severity, without behavioral disturbance, psychotic disturbance, mood disturbance, and anxiety Status: Acute Assessment and Plan: Hold medications in light of hyponatremia Plan DVT prophylaxis -Lovenox Nutrition -diabetic diet Code Status - Full Code Incentive spirometry, up in chair, Transfer out of ICU today Subjective Date/time seen: 05/31/25 Overnight events reviewed. No significant complaints. Patient states he slept well. She denies any pain or shortness of breath. She is not wearing any oxygen right now while she eats breakfast. Patient denies fever, chest pain, shortness of breath, cough, nausea vomiting, abdominal pain,, diarrhea, headache or constipation. All other systems were reviewed and were negative. She is off continues fluids. Review of Systems Review of Systems: All systems reviewed & are unremarkable except as noted in HPI and below (HPI) Exam Narrative: General: Pt is alert awake and in NAD Lungs/Chest: Trachea central Clear BS B/L, No crackles or wheezing. Cardiac: RRR. Normal S1 S2. No murmurs Circulation: The right AKA, left leg I was unable to feel the pulse, toes are cold, patient has a wound on posterior aspect of her leg which is superficial and does not appear infected. Patient does have some pain and tenderness around it Abdomen: Normal bowel sounds.. PEs Soft. NT. ND. Extremities: No edema in the left leg, peripheral vascular disease, ulcer on posterior aspect of left leg : Heller in place Neurologic: Follows commands. Moves all 4 extremities PERRL AO x3 no FND Skin: No Rash Objective Data Vital Signs Vital Signs: Vital Signs - 24 hr 05/30/25 09:00 05/30/25 10:00 05/30/25 10:00 Temperature 36.6 C 36.6 C Pulse Rate 88 69 69 Respiratory Rate 18 14 Blood Pressure 169/64 H Pulse Oximetry 89 L 97 Oxygen Delivery Oxygen Flow Rate Fraction of Inspired Oxygen 05/30/25 11:00 05/30/25 12:00 05/30/25 12:00 Temperature 36.6 C 36.6 C Pulse Rate 74 77 69 Respiratory Rate 17 15 Blood Pressure 153/58 H 186/63 H Pulse Oximetry 100 98 Oxygen Delivery Oxygen Flow Rate Fraction of Inspired Oxygen 05/30/25 12:00 05/30/25 13:00 05/30/25 14:00 Temperature 36.7 C Pulse Rate 77 79 84 Respiratory Rate 13 20 Blood Pressure 157/89 H Pulse Oximetry 98 96 Oxygen Delivery Nasal Cannula Oxygen Flow Rate 3 Fraction of Inspired Oxygen 05/30/25 14:00 05/30/25 15:00 05/30/25 16:00 Temperature 36.7 C 36.9 C Pulse Rate 79 65 74 Respiratory Rate 20 15 Blood Pressure 167/58 H 149/60 H Pulse Oximetry 96 92 Oxygen Delivery Oxygen Flow Rate Fraction of Inspired Oxygen 05/30/25 16:00 05/30/25 16:00 05/30/25 17:00 Temperature 37.0 C 37.0 C Pulse Rate 74 74 75 Respiratory Rate 17 15 19 Blood Pressure 129/61 153/56 H Pulse Oximetry 100 100 98 Oxygen Delivery Nasal Cannula Oxygen Flow Rate 2 Fraction of Inspired Oxygen 05/30/25 18:00 05/30/25 18:00 05/30/25 19:00 Temperature Pulse Rate 74 75 73 Respiratory Rate 18 19 Blood Pressure 126/58 L 96/82 L Pulse Oximetry 99 98 Oxygen Delivery Oxygen Flow Rate Fraction of Inspired Oxygen 05/30/25 20:00 05/30/25 20:00 05/30/25 20:00 Temperature 36.9 C Pulse Rate 71 72 Respiratory Rate 16 Blood Pressure 96/72 L Pulse Oximetry 95 97 Oxygen Delivery Room Air Oxygen Flow Rate Fraction of Inspired Oxygen 05/30/25 20:25 05/30/25 20:25 05/30/25 20:27 Temperature Pulse Rate 68 65 Respiratory Rate 15 15 Blood Pressure 134/67 Pulse Oximetry Oxygen Delivery Oxygen Flow Rate Fraction of Inspired Oxygen 05/30/25 20:29 05/30/25 21:00 05/30/25 22:00 Temperature 36.8 C Pulse Rate 65 64 Respiratory Rate 15 Blood Pressure 150/54 H Pulse Oximetry 97 92 Oxygen Delivery Nasal Cannula Oxygen Flow Rate 1 Fraction of Inspired Oxygen 05/30/25 22:00 05/30/25 23:00 05/30/25 23:40 Temperature 36.9 C 36.9 C Pulse Rate 65 60 64 Respiratory Rate 12 14 18 Blood Pressure 121/47 L 107/44 L Pulse Oximetry 93 96 93 Oxygen Delivery BiPAP Oxygen Flow Rate Fraction of Inspired Oxygen 05/31/25 00:00 05/31/25 00:00 05/31/25 00:00 Temperature 36.8 C Pulse Rate 61 59 L Respiratory Rate 14 Blood Pressure 121/58 L Pulse Oximetry 99 99 Oxygen Delivery BiPAP Oxygen Flow Rate Fraction of Inspired Oxygen 30 05/31/25 01:00 05/31/25 02:00 05/31/25 02:00 Temperature 36.7 C 36.6 C Pulse Rate 59 L 57 L 58 L Respiratory Rate 13 12 Blood Pressure 139/71 112/48 L Pulse Oximetry 100 100 Oxygen Delivery Oxygen Flow Rate Fraction of Inspired Oxygen 05/31/25 02:31 05/31/25 02:44 05/31/25 03:00 Temperature 36.5 C Pulse Rate 58 L 58 L Respiratory Rate 19 15 Blood Pressure 142/63 H Pulse Oximetry 100 91 96 Oxygen Delivery BiPAP Nasal Cannula Oxygen Flow Rate 2 Fraction of Inspired Oxygen 05/31/25 04:00 05/31/25 04:00 05/31/25 04:00 Temperature 36.5 C Pulse Rate 61 64 Respiratory Rate 14 Blood Pressure 150/72 H Pulse Oximetry 94 94 Oxygen Delivery Room Air Oxygen Flow Rate Fraction of Inspired Oxygen 05/31/25 05:00 05/31/25 06:00 05/31/25 06:00 Temperature 36.4 C 36.4 C L Pulse Rate 67 67 65 Respiratory Rate 13 18 Blood Pressure 152/60 H 147/62 H Pulse Oximetry 94 96 Oxygen Delivery Oxygen Flow Rate Fraction of Inspired Oxygen 05/31/25 07:00 05/31/25 08:00 05/31/25 08:19 Temperature 36.4 C 36.6 C Pulse Rate 62 73 77 Respiratory Rate 22 H 17 17 Blood Pressure 175/53 H 149/57 H Pulse Oximetry 90 90 Oxygen Delivery Oxygen Flow Rate Fraction of Inspired Oxygen 05/31/25 08:22 Temperature Pulse Rate Respiratory Rate Blood Pressure Pulse Oximetry 95 Oxygen Delivery Room Air Oxygen Flow Rate Fraction of Inspired Oxygen Intake/Output Intake/Output: Intake & Output 05/28/25 05/29/25 05/30/25 05/31/25 23:59 23:59 23:59 23:59 Intake Total 3018.7 200 Output Total 3550 1350 Balance -531.3 -1150 Meds/Results Medications: Active Medications Generic Name Dose Route Start Last Admin Trade Name Freq PRN Reason Stop Dose Admin Albuterol/Ipratropium 3 ml 05/30/25 20:00 05/31/25 08:19 Ipratropium 0.5 Mg/Albuterol Sulfate 2.5 Mg (Base) Ampul.Neb 3 Ml INHALATION 3 ml Q6HRT BALAJI Administration Amitriptyline HCl 50 mg 05/30/25 21:00 05/30/25 20:24 Amitriptyline Hcl 25 Mg Tablet PO 50 mg HS BALAJI Administration Aspirin 81 mg 05/30/25 11:00 05/30/25 11:29 Aspirin 81 Mg Chewable Tablet PO 81 mg DAILY BALAJI Administration Atorvastatin Calcium 40 mg 05/30/25 21:00 05/30/25 20:23 Atorvastatin 40 Mg Tablet PO 40 mg HS BALAJI Administration Bupropion HCl 150 mg 05/31/25 09:00 Bupropion Hcl Xl (24 Hr) 150 Mg Tabcr PO DAILY BALAJI Dextrose 12.5 gm 05/30/25 11:37 Dextrose 50% 25 Gm/50 Ml Syringe IV PUSH PRN PRN Hypoglycemia Protocol Donepezil HCl 10 mg 05/30/25 21:00 05/30/25 20:24 Donepezil Hcl 10 Mg Tablet PO 10 mg HS BALAJI Administration Duloxetine HCl 20 mg 05/31/25 09:00 Duloxetine Hcl 20 Mg Capsule.Dr PO BID BALAJI Enoxaparin Sodium 40 mg 05/30/25 10:15 05/30/25 11:29 Enoxaparin 40 Mg/0.4 Ml Syringe SUB-Q 40 mg DAILY BALAJI Administration Glucagon 1 mg 05/30/25 11:37 Glucagon For Inj 1 Mg Vial IM PRN PRN Hypoglycemia Protocol Glucose 15 gm 05/30/25 11:37 Glucose Oral Gel 15 Gm Of Glucse In 37.5 Gm Tube PO PRN PRN Hypoglycemia Protocol Hydralazine HCl 20 mg 05/30/25 14:48 Hydralazine Hcl 20 Mg/Ml Vial IV PUSH Q4H PRN SBP more than 160 Dextrose 1,000 mls @ 100 mls/hr 05/30/25 11:37 Dextrose 5% 1,000 Ml IVPB PRN PRN Hypoglycemia Protocol Sodium Chloride 1,000 mls @ 75 mls/hr 05/30/25 23:55 05/31/25 00:05 Normal Saline Iv IV CONT 75 mls/hr .[id number] BALAJI Administration Calcium Gluconate 2,000 mg in 100 mls @ 100 mls/hr 05/31/25 07:49 Calcium Gluc 2,000 Mg/Ns 100ml IVPB 05/31/25 08:48 ONCE ONE Insulin Aspart 4 - 8 units 05/30/25 12:00 05/30/25 16:55 Insulin Aspart (*Bkc) 100 Units/Ml SUB-Q 4 units TIDWM BALAJI Administration Protocol Insulin Aspart 2 - 4 units 05/30/25 21:00 05/30/25 20:37 Insulin Aspart (*Bkc) 100 Units/Ml SUB-Q 2 units HS BALAJI Administration Protocol Levothyroxine Sodium 75 mcg 05/31/25 06:30 05/31/25 06:02 Levothyroxine Sodium 75 Mcg Tablet PO 75 mcg DAILY@0630 BALAJI Administration Levothyroxine Sodium 100 mcg 05/30/25 11:00 05/31/25 06:02 Levothyroxine Sodium 100 Mcg Tablet PO 100 mcg DAILY@0630 BALAJI Administration Loratadine 10 mg 05/30/25 11:00 05/30/25 11:29 Loratadine 10 Mg Tablet PO 10 mg DAILY BALAJI Administration Memantine 10 mg 05/30/25 21:00 05/30/25 20:24 Memantine 10 Mg Tablet PO 10 mg Q12HR BALAJI Administration Metoclopramide HCl 10 mg 05/31/25 06:30 05/31/25 06:02 Metoclopramide Hcl 10 Mg Tablet PO 10 mg AC BALAJI Administration Miscellaneous Information 1 each 05/30/25 00:01 Med Rec Order Clarification - Guaifenesin [Chest Congestion Relief] 400 Mg Tablet) XX 06/29/25 00:00 CLARIFY [facility] Miscellaneous Information 1 each 05/30/25 00:01 Med Rec Order Clarification - Cholecalciferol 50,000 Units XX 06/29/25 00:00 [facility]ARIFY [facility] Non-Formulary Medication 400 mg 05/30/25 10:14 Guaifenesin [Chest Congestion Relief] PO Q6H PRN congestion Non-Formulary Medication 50,000 unit 05/31/25 09:00 Cholecalciferol (Vitamin D3) PO 06/30/25 08:59 DAILY [facility] Ondansetron HCl 4 mg 05/30/25 03:49 Ondansetron Inj 4 Mg/2 Ml Vial IV PUSH Q4H PRN Nausea Perflutren Lipid Microsphere 0 ml 05/30/25 09:38 Perflutren Lipid Microspheres 1.5 Ml Vial Diluted To 10 Ml Total Volume IV PUSH 06/02/25 09:38 ONCE PRN adequate visualization Protocol Polyethylene Glycol 17 gm 05/30/25 10:14 Polyethylene Glycol 3350 17 Gm Powd.Pack PO DAILY PRN Constipation Pramipexole Dihydrochloride 0.5 mg 05/31/25 09:00 Pramipexole 0.5 Mg Tablet PO TID [facility] Prednisone 40 mg 05/31/25 08:00 Prednisone 20 Mg Tablet PO DAILY@0800 [facility] Pregabalin 300 mg 05/30/25 19:20 05/30/25 20:23 Pregabalin (*Crx) 75 Mg Capsule PO 300 mg TID [facility] Administration Fluticasone/Salmeterol 2 puff 05/30/25 20:00 05/31/25 08:19 Fluticasone/Salmeterol 115-21 Mcg Inhaler 1 Puff INHALATION 2 puff Q12HRT [facility] Administration Sodium Chloride 1,000 mg 05/30/25 09:00 05/30/25 16:55 Sodium Chloride 500 Mg Tablet PO 1,000 mg BID [facility] Administration Vitamin D 50 mcg 05/30/25 11:00 05/30/25 11:29 Cholecalciferol (Vitamin D3) 25 Mcg (1,000 Units) Tablet PO 50 mcg DAILY BALAJI Administration Radiology Results: ITS Impressions Head CT 05/30/25 07:29 IMPRESSION: 1. 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 Chronic encephalomalacia in the left frontal temporal region. 2. Moderate nonspecific cerebral white matter disease, which likely represents chronic small vessel ischemic disease. Chest X-Ray 05/30/25 07:55 IMPRESSION: 1. Subtle interstitial pulmonary edema, pneumonitis, and/or chronic interstitial disease. Labs Labs: Laboratory Results - last 24 hr 05/30/25 05/30/25 05/30/25 07:00 08:15 09:17 WBC RBC Hgb Hct MCV MCH MCHC RDW Plt Count MPV Sodium 116 L* Potassium 5.6 H Chloride 86 L Carbon Dioxide 26 Anion Gap 4 BUN 24 H Creatinine 0.59 L Estim Creat Clear Calc 87 Estimated GFR > 60 Glucose 122 H POC Capillary Glucose 107 H Calcium 7.8 L Phosphorus Magnesium Total Bilirubin AST ALT Alkaline Phosphatase Ammonia Total Protein Albumin Random Cortisol 27.60 U Random Total Protein Ur Random Sodium Ur Random Urea Urine Creatinine Protein/Creat Ratio 2 Nasal MRSA (PCR) Not detected 05/30/25 05/30/25 05/30/25 10:20 11:31 12:33 WBC RBC Hgb Hct MCV MCH MCHC RDW Plt Count MPV Sodium Potassium Chloride Carbon Dioxide Anion Gap BUN Creatinine Estim Creat Clear Calc Estimated GFR Glucose POC Capillary Glucose 187 H 187 H Calcium Phosphorus Magnesium Total Bilirubin AST ALT Alkaline Phosphatase Ammonia < 9 L Total Protein Albumin Random Cortisol U Random Total Protein Ur Random Sodium Ur Random Urea Urine Creatinine Protein/Creat Ratio 2 Nasal MRSA (PCR) 05/30/25 05/30/25 05/30/25 12:36 16:23 17:34 WBC RBC Hgb Hct MCV MCH MCHC RDW Plt Count MPV Sodium 118 L* 122 L Potassium 4.8 4.1 Chloride 85 L 95 L Carbon Dioxide 29 25 Anion Gap 4 2 L BUN 18 H 15 Creatinine 0.44 L 0.50 L Estim Creat Clear Calc 113 101 Estimated GFR > 60 > 60 Glucose 185 H 215 H POC Capillary Glucose 219 H Calcium 7.9 L 6.4 L Phosphorus Magnesium Total Bilirubin AST ALT Alkaline Phosphatase Ammonia Total Protein Albumin Random Cortisol U Random Total Protein Ur Random Sodium Ur Random Urea Urine Creatinine Protein/Creat Ratio 2 Nasal MRSA (PCR) 05/30/25 05/30/25 05/30/25 17:35 19:53 23:20 WBC RBC Hgb Hct MCV MCH MCHC RDW Plt Count MPV Sodium 120 L Potassium Chloride Carbon Dioxide Anion Gap BUN Creatinine Estim Creat Clear Calc Estimated GFR Glucose POC Capillary Glucose 208 H Calcium Phosphorus Magnesium Total Bilirubin AST ALT Alkaline Phosphatase Ammonia Total Protein Albumin Random Cortisol U Random Total Protein 16 Ur Random Sodium 45 Ur Random Urea 324 Urine Creatinine 22.4 Protein/Creat Ratio 2 0.71 H Nasal MRSA (PCR) 05/31/25 05/31/25 05/31/25 06:27 07:32 07:39 WBC 5.9 RBC 4.83 Hgb 14.2 Hct 44.9 MCV 93.0 D MCH 29.4 MCHC 31.6 L RDW 14.4 Plt Count 315 MPV 10.2 Sodium 125 L Potassium 4.4 Chloride 93 L Carbon Dioxide 29 Anion Gap 3 L BUN 12 Creatinine 0.44 L Estim Creat Clear Calc 114 Estimated GFR > 60 Glucose 171 H POC Capillary Glucose 113 H Calcium 7.9 L Phosphorus 2.7 Magnesium 2.0 Total Bilirubin 0.5 AST 26 ALT 20 Alkaline Phosphatase 127 H Ammonia Total Protein 6.4 Albumin 3.3 L Random Cortisol U Random Total Protein Ur Random Sodium Ur Random Urea Urine Creatinine Protein/Creat Ratio 2 Nasal MRSA (PCR) Quality VTE Prophylaxis VTE prophylaxis: pharmacologic ordered
[2025-05-31] MEDS: CALCIUM GLUC 2,000 MG/NS 100ML 2,000 MG/100 ML BAG 100 MG IVPB (08:36)
[2025-05-31] MEDS: LORATADINE 10 MG TABLET PO (08:43)
[2025-05-31] MEDS: ASPIRIN 81 MG CHEWABLE TABLET PO (08:43)
[2025-05-31] MEDS: PREGABALIN (*CRX) 75 MG CAPSULE 300 MG PO ×3 (08:43→16:56)
[2025-05-31] MEDS: buPROPion HCL XL (24 HR) 150 MG TABCR PO (08:44)
[2025-05-31] MEDS: CHOLECALCIFEROL (VITAMIN D3) 25 MCG (1,000 UNITS) TABLET 50 MCG PO (08:44)
[2025-05-31] MEDS: PRAMIPEXOLE 0.5 MG TABLET PO ×3 (08:44→16:56)
[2025-05-31] MEDS: MEMANTINE 10 MG TABLET PO ×2 (08:44→20:20)
[2025-05-31] MEDS: ENOXAPARIN 40 MG/0.4 ML SYRINGE SUB-Q (08:44)
[2025-05-31] MEDS: SODIUM CHLORIDE 500 MG TABLET 1000 MG PO ×2 (08:44→16:56)
--- NOTE | 2025-05-31 10:06 | P.PNNP_ITS ---
Progress Note: A&P Assessment and Plan (1) Hyponatremia: Code(s): E87.1 - Hypo-osmolality and hyponatremia Status: Acute Assessment and Plan: * slow and steady improvement * noted by admission sodium level * acute on chronic: * patient is aware of this issue (was told about on previous hospitalizations) * present at least as far back as August 2021 * baseline sodium ~ 126 - 132mmol/L in the last year * has been as low as 123mmol/L with acute hospitalizations * discharge sodium on August 2024 (from [facility]) was 131mmol/L * multiple risk factors for low sodium: * COPD/lung disease * medications: - amitriptyline - bupropion - duloxetine - memantine - pain medications/narcotics (oxycodone) - donepezil - pramipexole * thyroid disease * history of CVA * diabetes/hyperglyemia * excessive free water intake(?) * evaluation to date noted: * TSH normal * cortisol okay * CT of head without acute findings * CXR with evidence of possible chronic interstitial disease * CT of chest noted * urine sodium > 40 (but was on lasix) * urine electrolytes non-prerenal * SPEP/UPEP with immunofixation pending * serum/urine osmolality pending * doubt this was etiology of altered mentation on presentation to ER * mentation significantly better w/o any significant change in sodium level by 05/30 morning assessment * slow improvement noted with normal saline IVFs * this argues in favor of a component of volume depletion... * hold further IVFs today * temporarily on salt tabs for now * wean if able * follow trend of repeat/serial sodium levels (2) Hypoglycemia: Code(s): E16.2 - Hypoglycemia, unspecified Status: Acute Assessment and Plan: * resolved * presumed etiology of #4 * thought to be related to administration error at nursing facility (given short acting insulin when patient had not eaten yet...) * improvement noted with dextrose * follow accu-cheks (3) Acute respiratory failure: Code(s): J96.00 - Acute respiratory failure, unspecified whether with hypoxia or hypercapnia Status: Acute Assessment and Plan: * seems stable * possibly due to CO2 retention/hypercapnia exacerbated by altered mental status * improvement noted with application of BiPAP therapy * weaned down to oxygen by nasal cannula * use BiPAP PRN * follow respiratory status (4) Altered mental status: Code(s): R41.82 - Altered mental status, unspecified Status: Acute Assessment and Plan: * clinical improvement noted if not resolved * suspect secondary to hypoglycemia * resolved with administration of dextrose * CO2 retention/narcosis possibly played a role given admission ABG * possibly some improvement with BiPAP therapy * medication related(?) * holding sedative medications * doubt related to low sodium (sodium not much different than on admission at this time and mentation better currently) * CT of head negative * ammonia negative * follow mentation (5) Hyperkalemia: Code(s): E87.5 - Hyperkalemia Status: Acute Assessment and Plan: * resolved * transiently noted by AM labs on 05/30 * s/p lokelma * follow trend of repeat K+ (6) Diabetes mellitus: Code(s): E11.9 - Type 2 diabetes mellitus without complications Status: Acute Assessment and Plan: * see #2 * follow accu-cheks * glycemic control per business agent/hospitalist Will continue to follow. L Subjective Date/time seen: 05/31/25 10:06 Interval history: Follow-up for acute on chronic hyponatremia. No apparent distress noted at this time; sodium level has been slowly improving with current interventions/therapy; IVFs discontinued earlier today given trend of sodium; no other issues/events overnight or earlier this morning. Exam 2 Narrative: General: WD/WN female in NAD Heart: normal S1 and S2; no rub Lungs: clear anteriorly Abdomen: soft, nontender, nondistended, positive bowel sounds Extremities: no cyanosis or clubbing; no edema; s/p right AKA Skin: warm and dry Objective Data Vital Signs Vital Signs: Vital Signs Temp Pulse Resp BP Pulse Ox O2 Del Method O2 Flow Rate 05/31/25 10:00 76 18 159/83 H 93 05/31/25 10:00 72 05/31/25 09:00 98.2 F 78 19 156/59 H 92 05/31/25 08:32 90 Nasal Cannula 2 05/31/25 08:29 76 22 H 05/31/25 08:22 95 Room Air 05/31/25 08:19 77 17 05/31/25 08:00 73 05/31/25 08:00 73 17 94 Nasal Cannula 3 05/31/25 08:00 97.8 F 73 17 149/57 H 90 05/31/25 07:00 97.6 F 62 22 H 175/53 H 90 05/31/25 06:00 97.5 F L 65 18 147/62 H 96 05/31/25 06:00 67 05/31/25 05:00 97.6 F 67 13 152/60 H 94 05/31/25 04:00 94 Room Air 05/31/25 04:00 64 05/31/25 04:00 97.7 F 61 14 150/72 H 94 05/31/25 03:00 97.7 F 58 L 15 142/63 H 96 05/31/25 02:44 91 Nasal Cannula 2 05/31/25 02:31 58 L 19 100 BiPAP 05/31/25 02:00 58 L 05/31/25 02:00 97.9 F 57 L 12 112/48 L 100 05/31/25 01:00 98.0 F 59 L 13 139/71 100 05/31/25 00:00 99 BiPAP 05/31/25 00:00 59 L 05/31/25 00:00 98.3 F 61 14 121/58 L 99 05/30/25 23:40 64 18 93 BiPAP 05/30/25 23:00 98.5 F 60 14 107/44 L 96 05/30/25 22:00 98.5 F 65 12 121/47 L 93 05/30/25 22:00 64 05/30/25 21:00 98.3 F 65 15 150/54 H 92 05/30/25 20:29 97 Nasal Cannula 1 05/30/25 20:27 65 15 05/30/25 20:25 68 15 05/30/25 20:25 134/67 05/30/25 20:00 72 05/30/25 20:00 97 Room Air 05/30/25 20:00 98.4 F 71 16 96/72 L 95 05/30/25 19:00 73 19 96/82 L 98 05/30/25 18:00 75 05/30/25 18:00 74 18 126/58 L 99 05/30/25 17:00 98.6 F 75 19 153/56 H 98 05/30/25 16:00 74 15 100 Nasal Cannula 2 05/30/25 16:00 98.6 F 74 17 129/61 100 05/30/25 16:00 74 05/30/25 15:00 98.4 F 65 15 149/60 H 92 05/30/25 14:00 98.1 F 79 20 167/58 H 96 05/30/25 14:00 84 05/30/25 13:00 98.1 F 79 20 157/89 H 96 Intake/Output Intake/Output: Intake & Output 05/28/25 05/29/25 05/30/25 05/31/25 23:59 23:59 23:59 23:59 Intake Total 3018.7 800 Output Total 3550 1350 Balance -531.3 -550 Meds/Results Medications: Active Medications Generic Name Dose Route Start Last Admin Trade Name Freq PRN Reason Stop Dose Admin Albuterol/Ipratropium 3 ml 05/30/25 20:00 05/31/25 08:19 Ipratropium 0.5 Mg/Albuterol Sulfate 2.5 Mg (Base) Ampul.Neb 3 Ml INHALATION 3 ml Q6HRT BALAJI Administration Amitriptyline HCl 50 mg 05/30/25 21:00 05/30/25 20:24 Amitriptyline Hcl 25 Mg Tablet PO 50 mg HS BALAJI Administration Aspirin 81 mg 05/30/25 11:00 05/31/25 08:43 Aspirin 81 Mg Chewable Tablet PO 81 mg DAILY BALAJI Administration Atorvastatin Calcium 40 mg 05/30/25 21:00 05/30/25 20:23 Atorvastatin 40 Mg Tablet PO 40 mg HS BALAJI Administration Bupropion HCl 150 mg 05/31/25 09:00 05/31/25 08:44 Bupropion Hcl Xl (24 Hr) 150 Mg Tabcr PO 150 mg DAILY BALAJI Administration Dextrose 12.5 gm 05/30/25 11:37 Dextrose 50% 25 Gm/50 Ml Syringe IV PUSH PRN PRN Hypoglycemia Protocol Donepezil HCl 10 mg 05/30/25 21:00 05/30/25 20:24 Donepezil Hcl 10 Mg Tablet PO 10 mg HS BALAJI Administration Duloxetine HCl 20 mg 05/31/25 09:00 05/31/25 08:44 Duloxetine Hcl 20 Mg Capsule.Dr PO 20 mg BID BALAJI Administration Enoxaparin Sodium 40 mg 05/30/25 10:15 05/31/25 08:44 Enoxaparin 40 Mg/0.4 Ml Syringe SUB-Q 40 mg DAILY BALAJI Administration Glucagon 1 mg 05/30/25 11:37 Glucagon For Inj 1 Mg Vial IM PRN PRN Hypoglycemia Protocol Glucose 15 gm 05/30/25 11:37 Glucose Oral Gel 15 Gm Of Glucse In 37.5 Gm Tube PO PRN PRN Hypoglycemia Protocol Hydralazine HCl 20 mg 05/30/25 14:48 05/31/25 11:41 Hydralazine Hcl 20 Mg/Ml Vial IV PUSH 20 mg Q4H PRN Administration SBP more than 160 Dextrose 1,000 mls @ 100 mls/hr 05/30/25 11:37 Dextrose 5% 1,000 Ml IVPB PRN PRN Hypoglycemia Protocol Insulin Aspart 4 - 8 units 05/30/25 12:00 05/31/25 11:39 Insulin Aspart (*Bkc) 100 Units/Ml SUB-Q 8 units TIDWM BALAJI Administration Protocol Insulin Aspart 2 - 4 units 05/30/25 21:00 05/30/25 20:37 Insulin Aspart (*Bkc) 100 Units/Ml SUB-Q 2 units HS BALAJI Administration Protocol Levothyroxine Sodium 75 mcg 05/31/25 06:30 05/31/25 06:02 Levothyroxine Sodium 75 Mcg Tablet PO 75 mcg DAILY@0630 BALAJI Administration Levothyroxine Sodium 100 mcg 05/30/25 11:00 05/31/25 06:02 Levothyroxine Sodium 100 Mcg Tablet PO 100 mcg DAILY@0630 BALAJI Administration Loratadine 10 mg 05/30/25 11:00 05/31/25 08:43 Loratadine 10 Mg Tablet PO 10 mg DAILY BALAJI Administration Memantine 10 mg 05/30/25 21:00 05/31/25 08:44 Memantine 10 Mg Tablet PO 10 mg Q12HR BALAJI Administration Metoclopramide HCl 10 mg 05/31/25 06:30 05/31/25 11:40 Metoclopramide Hcl 10 Mg Tablet PO 10 mg AC BALAJI Administration Miscellaneous Information 1 each 05/30/25 00:01 Med Rec Order Clarification - Guaifenesin [Chest Congestion Relief] 400 Mg Tablet) XX 06/29/25 00:00 CLARIFY BALAJI Miscellaneous Information 1 each 05/30/25 00:01 Med Rec Order Clarification - Cholecalciferol 50,000 Units XX 06/29/25 00:00 CLARIFY BALAJI Non-Formulary Medication 400 mg 05/30/25 10:14 Guaifenesin [Chest Congestion Relief] PO Q6H PRN congestion Non-Formulary Medication 50,000 unit 05/31/25 09:00 Cholecalciferol (Vitamin D3) PO 06/30/25 08:59 DAILY BALAJI Ondansetron HCl 4 mg 05/30/25 03:49 Ondansetron Inj 4 Mg/2 Ml Vial IV PUSH Q4H PRN Nausea Perflutren Lipid Microsphere 0 ml 05/30/25 09:38 Perflutren Lipid Microspheres 1.5 Ml Vial Diluted To 10 Ml Total Volume IV PUSH 06/02/25 09:38 ONCE PRN adequate visualization Protocol Polyethylene Glycol 17 gm 05/30/25 10:14 Polyethylene Glycol 3350 17 Gm Powd.Pack PO DAILY PRN Constipation Pramipexole Dihydrochloride 0.5 mg 05/31/25 09:00 05/31/25 08:44 Pramipexole 0.5 Mg Tablet PO 0.5 mg TID BALAJI Administration Prednisone 40 mg 05/31/25 08:00 05/31/25 08:43 Prednisone 20 Mg Tablet PO 40 mg DAILY@0800 BALAJI Administration Pregabalin 300 mg 05/30/25 19:20 05/31/25 08:43 Pregabalin (*Crx) 75 Mg Capsule PO 300 mg TID BALAJI Administration Fluticasone/Salmeterol 2 puff 05/30/25 20:00 05/31/25 08:19 Fluticasone/Salmeterol 115-21 Mcg Inhaler 1 Puff INHALATION 2 puff Q12HRT BALAJI Administration Sodium Chloride 1,000 mg 05/30/25 09:00 05/31/25 08:44 Sodium Chloride 500 Mg Tablet PO 1,000 mg BID BALAJI Administration Vitamin D 50 mcg 05/30/25 11:00 05/31/25 08:44 Cholecalciferol (Vitamin D3) 25 Mcg (1,000 Units) Tablet PO 50 mcg DAILY BALAJI Administration Radiology Results: ITS Impressions Head CT 05/30/25 07:29 IMPRESSION: 1. 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 Chronic encephalomalacia in the left frontal temporal region. 2. Moderate nonspecific cerebral white matter disease, which likely represents chronic small vessel ischemic disease. Chest X-Ray 05/30/25 07:55 IMPRESSION: 1. Subtle interstitial pulmonary edema, pneumonitis, and/or chronic interstitial disease. Chest CT 05/31/25 09:57 IMPRESSION: 1. Small sliding hiatal hernia. Labs Labs: Laboratory Tests 05/31/25 06:27 05/31/25 07:32 Calcium 7.9 L Phosphorus 2.7 Magnesium 2.0 Total Bilirubin 0.5 AST 26 ALT 20 Alkaline Phosphatase 127 H Total Protein 6.4 Albumin 3.3 L 05/29/25 05/30/25 05/30/25 05/30/25 05/30/25 05/30/25 05/30/25 05/30/25 23:26 01:12 02:16 04:12 08:15 12:36 17:34 23:20 Sodium 114 L* 115 L* 115 L* 115 L* 116 L* 118 L* 122 L 120 L
[2025-05-31] MEDS: INSULIN ASPART (*BKC) 100 UNITS/ML SUB-Q ×2 (11:39→16:56)
[2025-05-31 15:00] LABS: Sodium 125 mmol/L (137-145)
[2025-05-31] MEDS: INSULIN ASPART (*BKC) 100 UNITS/ML 6 UNITS SUB-Q (20:16)
[2025-05-31] MEDS: DONEPEZIL HCL 10 MG TABLET PO (20:19)
[2025-05-31] MEDS: ATORVASTATIN 40 MG TABLET PO (20:19)
[2025-05-31] MEDS: AMITRIPTYLINE HCL 25 MG TABLET 50 MG PO (20:19)
[2025-05-31] MEDS: INSULIN GLARGINE (*BKC) 100 UNITS/ML 20 UNITS SUB-Q (20:25)
[2025-05-31 21:09] LABS: Sodium 125 mmol/L (137-145)
[2025-06-01] VITALS (20 sets, daily range): BP systolic 128–170; BP diastolic 50–87; PULSE 60–84; RESP 12–20; TEMP 36.2–37.1; O2SAT 90–96
[2025-06-01] MEDS: IPRATROPIUM 0.5 MG/ALBUTEROL SULFATE 2.5 MG (BASE) AMPUL.NEB 3 ML INHALATION ×4 (02:17→19:55)
[2025-06-01 04:26] LABS: Hematocrit 36.8 % (37.0-47.0); Hemoglobin 12.2 g/dL (12.0-15.0); Mean Corpuscular HGB Conc 33.2 g/dl (32-36); Mean Corpuscular Hemoglobin 29.2 pg (26-34); Mean Corpuscular Volume 88.0 fl (80-100); Platelet Count Result 314 k/mm3 (150-375); Red Blood Count 4.18 M/mm3 (4.2-5.4); White Blood Count 7.2 K/mm3 (4.5-10.0)
[2025-06-01 04:51] LABS: Alanine Aminotransferase 21 U/L (6-35); Albumin Level 3.5 g/dL (3.5-5.1); Alkaline Phosphatase 110 U/L (38-126); Anion Gap 2 mmol/L (4-12); Aspartate Amino Transferase 31 U/L (14-36); Bilirubin,Total 0.4 mg/dL (0.2-1.3); Blood Urea Nitrogen 15 mg/dL (7-17); Calcium 8.2 mg/dL (8.4-10.2); Carbon Dioxide 32 mmol/L (22-30); Chloride 94 mmol/L (98-107); Estimated CRCL calculation 108 ml/min; Estimated Glomerular Filt Rate > 60; Glucose 150 mg/dL (65-110); Magnesium 2.0 mg/dL (1.6-2.3); Potassium 3.9 mmol/L (3.4-5.0); Sodium 128 mmol/L (137-145); Total Protein 6.5 g/dL (6.3-8.2)
[2025-06-01] MEDS: LEVOTHYROXINE SODIUM 75 MCG TABLET PO (06:03)
[2025-06-01] MEDS: METOCLOPRAMIDE HCL 10 MG TABLET PO ×3 (06:03→16:46)
[2025-06-01] MEDS: LEVOTHYROXINE SODIUM 100 MCG TABLET PO (06:03)
--- NOTE | 2025-06-01 08:24 | PM.IMPN ---
Progress Note: A&P Assessment and Plan (1) Encephalopathy acute: Code(s): G93.40 - Encephalopathy, unspecified Status: Acute Assessment and Plan: Presented with acute encephalopathy which is likely secondary to hypoglycemia as it has resolved after administration of dextrose. Patient also has is hyponatremia but hyponatremia is still present and mental status has improved his suggesting against the etiology Head CT was negative ABG reviewed TSH and ammonia normal Hyponatremia management as below Hold sedatives Patient now back to baseline (2) Hyponatremia: Code(s): E87.1 - Hypo-osmolality and hyponatremia Status: Acute Assessment and Plan: Patient presented with hyponatremia with normal renal function Differential includes dehydration as patient is on diuretics vs medication induced as patient is on several psychiatric medications vs SIADH Nephrology has been managing sodium till now patient is currently off any fluids in sodium is improved to 128 Will defer further evaluation and management to Nephrology. CT chest was negative TSH is normal, random cortisol level is in normal range (3) COPD (chronic obstructive pulmonary disease): Code(s): J44.9 - Chronic obstructive pulmonary disease, unspecified Status: Acute Assessment and Plan: Bronchodilators, Advair (4) Hypoglycemia: Code(s): E16.2 - Hypoglycemia, unspecified Status: Acute Assessment and Plan: Patient presented with altered mental status and hypoglycemia. Hypoglycemia appears to be secondary to error with insulin. Blood glucose had improved and patient became hyperglycemic. Lantus was resumed last night. She had a blood glucose of 45 this morning. Patient is asymptomatic and is now eating. Will monitor blood glucose. Continue Lantus at a low rate at this time. (5) Diabetes mellitus: Code(s): E11.9 - Type 2 diabetes mellitus without complications Status: Acute Assessment and Plan: See above (6) Respiratory failure: Code(s): J96.90 - Respiratory failure, unspecified, unspecified whether with hypoxia or hypercapnia Status: Acute Assessment and Plan: Patient has history of COPD and presented with respiratory acidosis which could have been exacerbated by her encephalopathy. Patient was placed on BiPAP. ABG has improved. Patient is now awake alert and off oxygen. Will use BiPAP on p.r.n. basis if needed. Chest x-ray was clear. CT chest done and negative (7) Hyperkalemia: Code(s): E87.5 - Hyperkalemia Status: Acute Assessment and Plan: Pt given lokelma. Potassium normalized Neprhology managing (8) Hyperlipidemia: Code(s): E78.5 - Hyperlipidemia, unspecified Status: Acute Assessment and Plan: Continue statin (9) Depression: Code(s): F32.A - Depression, unspecified Status: Acute Assessment and Plan: psychiatric medications resume (10) Anxiety: Code(s): F41.9 - Anxiety disorder, unspecified Status: Acute Assessment and Plan: Medications resume (11) Peripheral arterial disease: Code(s): I73.9 - Peripheral vascular disease, unspecified Status: Acute Assessment and Plan: Aspirin statin (12) Hypothyroidism: Code(s): E03.9 - Hypothyroidism, unspecified Status: Acute Assessment and Plan: Continue levothyroxine (13) Dementia: Code(s): F03.90 - Unspecified dementia, unspecified severity, without behavioral disturbance, psychotic disturbance, mood disturbance, and anxiety Status: Acute Assessment and Plan: Home medications resumed Plan DVT prophylaxis -Lovenox Nutrition -diabetic diet Code Status - Full Code Incentive spirometry, up in chair, PT OT Subjective Date/time seen: 06/01/25 Patient states she did not sleep well last night and kept on waking up. Denies any other complaints. She states she had episode of hypoglycemia but did not feel or was symptomatic. Was told by nursing staff that her blood sugars low. Patient denies fever, chest pain, shortness of breath, cough, nausea vomiting, abdominal pain,, diarrhea, headache or constipation. All other systems were reviewed and were negative Afebrile. High urine output. Review of Systems Review of Systems: All systems reviewed & are unremarkable except as noted in HPI and below (HPI) Exam Narrative: General: Pt is alert awake and in NAD Lungs/Chest: Trachea central Clear BS B/L, No crackles or wheezing. Cardiac: RRR. Normal S1 S2. No murmurs Circulation: The right AKA, left leg I was unable to feel the pulse, toes are cold, patient has a wound on posterior aspect of her leg which is superficial and does not appear infected. Patient does have some pain and tenderness around it Abdomen: Normal bowel sounds.. PEs Soft. NT. ND. Extremities: No edema in the left leg, peripheral vascular disease, ulcer on posterior aspect of left leg : Heller in place Neurologic: Follows commands. Moves all 4 extremities PERRL AO x3 no FND Skin: No Rash Objective Data Vital Signs Vital Signs: Vital Signs - 24 hr 05/31/25 08:29 05/31/25 08:32 05/31/25 09:00 Temperature 36.8 C Pulse Rate 76 78 Respiratory Rate 22 H 19 Blood Pressure 156/59 H Pulse Oximetry 90 92 Oxygen Delivery Nasal Cannula Oxygen Flow Rate 2 Fraction of Inspired Oxygen 05/31/25 10:00 05/31/25 10:00 05/31/25 12:00 Temperature Pulse Rate 72 76 74 Respiratory Rate 18 Blood Pressure 159/83 H Pulse Oximetry 93 Oxygen Delivery Oxygen Flow Rate Fraction of Inspired Oxygen 05/31/25 12:00 05/31/25 12:00 05/31/25 13:19 Temperature 36.9 C Pulse Rate 64 64 89 Respiratory Rate 20 20 28 H Blood Pressure 147/51 H Pulse Oximetry 95 98 Oxygen Delivery Nasal Cannula Oxygen Flow Rate 2 Fraction of Inspired Oxygen 05/31/25 13:25 05/31/25 14:00 05/31/25 16:00 Temperature Pulse Rate 90 74 73 Respiratory Rate 23 H Blood Pressure Pulse Oximetry Oxygen Delivery Oxygen Flow Rate Fraction of Inspired Oxygen 05/31/25 16:00 05/31/25 16:00 05/31/25 18:00 Temperature 37.1 C Pulse Rate 73 64 93 Respiratory Rate 12 20 Blood Pressure 153/56 H Pulse Oximetry 95 98 Oxygen Delivery Nasal Cannula Oxygen Flow Rate 2 Fraction of Inspired Oxygen 05/31/25 19:54 05/31/25 19:59 05/31/25 20:00 Temperature Pulse Rate 95 96 Respiratory Rate 20 20 Blood Pressure Pulse Oximetry 97 Oxygen Delivery Room Air Room Air Oxygen Flow Rate Fraction of Inspired Oxygen 21 05/31/25 20:00 05/31/25 20:00 05/31/25 20:03 Temperature 37.3 C Pulse Rate 90 90 88 Respiratory Rate 16 20 Blood Pressure 154/81 H Pulse Oximetry 89 L Oxygen Delivery Oxygen Flow Rate Fraction of Inspired Oxygen 05/31/25 22:00 05/31/25 22:25 06/01/25 00:00 Temperature Pulse Rate 70 82 Respiratory Rate 24 H Blood Pressure Pulse Oximetry 97 Oxygen Delivery BiPAP Room Air Oxygen Flow Rate Fraction of Inspired Oxygen 06/01/25 00:00 06/01/25 00:00 06/01/25 02:00 Temperature 37.1 C Pulse Rate 73 73 75 Respiratory Rate 16 Blood Pressure 134/50 L Pulse Oximetry 90 Oxygen Delivery Oxygen Flow Rate Fraction of Inspired Oxygen 06/01/25 02:17 06/01/25 03:58 06/01/25 04:00 Temperature Pulse Rate 77 64 69 Respiratory Rate 20 20 Blood Pressure Pulse Oximetry 90 Oxygen Delivery Room Air Oxygen Flow Rate Fraction of Inspired Oxygen 06/01/25 04:00 06/01/25 06:00 06/01/25 08:00 Temperature 36.2 C L Pulse Rate 69 60 75 Respiratory Rate 18 12 Blood Pressure 128/87 Pulse Oximetry 96 92 Oxygen Delivery Room Air Oxygen Flow Rate Fraction of Inspired Oxygen 21 06/01/25 08:00 06/01/25 08:00 Temperature 36.5 C Pulse Rate 75 75 Respiratory Rate 12 Blood Pressure 155/56 H Pulse Oximetry 92 Oxygen Delivery Oxygen Flow Rate Fraction of Inspired Oxygen Intake/Output Intake/Output: Intake & Output 05/29/25 05/30/25 05/31/25 06/01/25 23:59 23:59 23:59 23:59 Intake Total 3018.7 1040 Output Total 3550 5650 3000 Balance -531.3 -4610 -3000 Meds/Results Medications: Active Medications Generic Name Dose Route Start Last Admin Trade Name Freq PRN Reason Stop Dose Admin Albuterol/Ipratropium 3 ml 05/30/25 20:00 06/01/25 02:17 Ipratropium 0.5 Mg/Albuterol Sulfate 2.5 Mg (Base) Ampul.Neb 3 Ml INHALATION 3 ml Q6HRT BALAJI Administration Amitriptyline HCl 50 mg 05/30/25 21:00 05/31/25 20:19 Amitriptyline Hcl 25 Mg Tablet PO 50 mg HS BALAJI Administration Aspirin 81 mg 05/30/25 11:00 05/31/25 08:43 Aspirin 81 Mg Chewable Tablet PO 81 mg DAILY BALAJI Administration Atorvastatin Calcium 40 mg 05/30/25 21:00 05/31/25 20:19 Atorvastatin 40 Mg Tablet PO 40 mg HS BALAJI Administration Bupropion HCl 150 mg 05/31/25 09:00 05/31/25 08:44 Bupropion Hcl Xl (24 Hr) 150 Mg Tabcr PO 150 mg DAILY BALAJI Administration Dextrose 12.5 gm 05/30/25 11:37 Dextrose 50% 25 Gm/50 Ml Syringe IV PUSH PRN PRN Hypoglycemia Protocol Donepezil HCl 10 mg 05/30/25 21:00 05/31/25 20:19 Donepezil Hcl 10 Mg Tablet PO 10 mg HS BALAJI Administration Duloxetine HCl 20 mg 05/31/25 09:00 05/31/25 16:56 Duloxetine Hcl 20 Mg Capsule.Dr PO 20 mg BID BALAJI Administration Enoxaparin Sodium 40 mg 05/30/25 10:15 05/31/25 08:44 Enoxaparin 40 Mg/0.4 Ml Syringe SUB-Q 40 mg DAILY BALAJI Administration Glucagon 1 mg 05/30/25 11:37 Glucagon For Inj 1 Mg Vial IM PRN PRN Hypoglycemia Protocol Glucose 15 gm 05/30/25 11:37 Glucose Oral Gel 15 Gm Of Glucse In 37.5 Gm Tube PO PRN PRN Hypoglycemia Protocol Hydralazine HCl 20 mg 05/30/25 14:48 05/31/25 11:41 Hydralazine Hcl 20 Mg/Ml Vial IV PUSH 20 mg Q4H PRN Administration SBP more than 160 Dextrose 1,000 mls @ 100 mls/hr 05/30/25 11:37 Dextrose 5% 1,000 Ml IVPB PRN PRN Hypoglycemia Protocol Sodium Chloride 1,000 mls @ 75 mls/hr 05/31/25 21:50 05/31/25 22:09 Normal Saline Iv IV CONT 75 mls/hr .[id number] BALAJI Administration Insulin Aspart 4 - 8 units 05/30/25 12:00 05/31/25 16:56 Insulin Aspart (*Bkc) 100 Units/Ml SUB-Q 6 units TIDWM BALAJI Administration Protocol Insulin Aspart 2 - 4 units 05/30/25 21:00 05/31/25 20:20 Insulin Aspart (*Bkc) 100 Units/Ml SUB-Q Not Given HS BALAJI Protocol Insulin Glargine 20 units 05/31/25 21:00 05/31/25 20:25 Insulin Glargine (*Bkc) 100 Units/Ml SUB-Q 20 units HS BALAJI Administration Levothyroxine Sodium 75 mcg 05/31/25 06:30 06/01/25 06:03 Levothyroxine Sodium 75 Mcg Tablet PO 75 mcg DAILY@0630 BALAJI Administration Levothyroxine Sodium 100 mcg 05/30/25 11:00 06/01/25 06:03 Levothyroxine Sodium 100 Mcg Tablet PO 100 mcg DAILY@0630 BALAJI Administration Loratadine 10 mg 05/30/25 11:00 05/31/25 08:43 Loratadine 10 Mg Tablet PO 10 mg DAILY BALAJI Administration Memantine 10 mg 05/30/25 21:00 05/31/25 20:20 Memantine 10 Mg Tablet PO 10 mg Q12HR BALAJI Administration Metoclopramide HCl 10 mg 05/31/25 06:30 06/01/25 06:03 Metoclopramide Hcl 10 Mg Tablet PO 10 mg AC BALAJI Administration Miscellaneous Information 1 each 05/30/25 00:01 06/01/25 05:19 Med Rec Order Clarification - Guaifenesin [Chest Congestion Relief] 400 Mg Tablet) XX 06/29/25 00:00 Not Given CLARIFY ON LICENSE OF [facility] Miscellaneous Information 1 each 05/30/25 00:01 06/01/25 05:18 Med Rec Order Clarification - Cholecalciferol 50,000 Units XX 06/29/25 00:00 Not Given CLARIFY ON LICENSE OF [facility] Non-Formulary Medication 400 mg 05/30/25 10:14 Guaifenesin [Chest Congestion Relief] PO Q6H PRN congestion Non-Formulary Medication 50,000 unit 05/31/25 09:00 Cholecalciferol (Vitamin D3) PO 06/30/25 08:59 DAILY ON LICENSE OF [facility] Ondansetron HCl 4 mg 05/30/25 03:49 Ondansetron Inj 4 Mg/2 Ml Vial IV PUSH Q4H PRN Nausea Perflutren Lipid Microsphere 0 ml 05/30/25 09:38 Perflutren Lipid Microspheres 1.5 Ml Vial Diluted To 10 Ml Total Volume IV PUSH 06/02/25 09:38 ONCE PRN adequate visualization Protocol Polyethylene Glycol 17 gm 05/30/25 10:14 Polyethylene Glycol 3350 17 Gm Powd.Pack PO DAILY PRN Constipation Pramipexole Dihydrochloride 0.5 mg 05/31/25 09:00 05/31/25 16:56 Pramipexole 0.5 Mg Tablet PO 0.5 mg TID ON LICENSE OF [facility] Administration Prednisone 40 mg 05/31/25 08:00 05/31/25 08:43 Prednisone 20 Mg Tablet PO 40 mg DAILY@0800 ON LICENSE OF [facility] Administration Pregabalin 300 mg 05/30/25 19:20 05/31/25 16:56 Pregabalin (*Crx) 75 Mg Capsule PO 300 mg TID BALAJI Administration Fluticasone/Salmeterol 2 puff 05/30/25 20:00 05/31/25 19:54 Fluticasone/Salmeterol 115-21 Mcg Inhaler 1 Puff INHALATION 2 puff Q12HRT BALAJI Administration Sodium Chloride 1,000 mg 05/30/25 09:00 05/31/25 16:56 Sodium Chloride 500 Mg Tablet PO 1,000 mg BID BALAJI Administration Vitamin D 50 mcg 05/30/25 11:00 05/31/25 08:44 Cholecalciferol (Vitamin D3) 25 Mcg (1,000 Units) Tablet PO 50 mcg DAILY BALAJI Administration Radiology Results: ITS Impressions Head CT 05/30/25 07:29 IMPRESSION: 1. 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 Chronic encephalomalacia in the left frontal temporal region. 2. Moderate nonspecific cerebral white matter disease, which likely represents chronic small vessel ischemic disease. Chest CT 05/31/25 09:57 IMPRESSION: 1. Small sliding hiatal hernia. Chest X-Ray 05/31/25 18:45 Impression: No acute cardiopulmonary abnormality. Labs Labs: Laboratory Results - last 24 hr 05/31/25 05/31/25 05/31/25 11:18 14:43 16:43 WBC RBC Hgb Hct MCV MCH MCHC RDW Plt Count MPV Sodium 125 L Potassium Chloride Carbon Dioxide Anion Gap BUN Creatinine Estim Creat Clear Calc Estimated GFR Glucose POC Capillary Glucose 392 H 332 H Calcium Phosphorus Magnesium Total Bilirubin AST ALT Alkaline Phosphatase Total Protein Albumin 05/31/25 05/31/25 05/31/25 19:50 20:57 21:39 WBC RBC Hgb Hct MCV MCH MCHC RDW Plt Count MPV Sodium 125 L Potassium Chloride Carbon Dioxide Anion Gap BUN Creatinine Estim Creat Clear Calc Estimated GFR Glucose POC Capillary Glucose 429 H 354 H Calcium Phosphorus Magnesium Total Bilirubin AST ALT Alkaline Phosphatase Total Protein Albumin 06/01/25 06/01/25 03:51 07:33 WBC 7.2 RBC 4.18 L Hgb 12.2 Hct 36.8 L MCV 88.0 D MCH 29.2 MCHC 33.2 RDW 14.4 Plt Count 314 MPV 10.0 Sodium 128 L Potassium 3.9 Chloride 94 L Carbon Dioxide 32 H Anion Gap 2 L BUN 15 Creatinine 0.47 L Estim Creat Clear Calc 108 Estimated GFR > 60 Glucose 150 H POC Capillary Glucose 45 L* Calcium 8.2 L Phosphorus 3.0 Magnesium 2.0 Total Bilirubin 0.4 AST 31 ALT 21 Alkaline Phosphatase 110 Total Protein 6.5 Albumin 3.5 Quality VTE Prophylaxis VTE prophylaxis: pharmacologic ordered
[2025-06-01] MEDS: ASPIRIN 81 MG CHEWABLE TABLET PO (08:31)
[2025-06-01] MEDS: buPROPion HCL XL (24 HR) 150 MG TABCR PO (08:31)
[2025-06-01] MEDS: LORATADINE 10 MG TABLET PO (08:32)
[2025-06-01] MEDS: CHOLECALCIFEROL (VITAMIN D3) 25 MCG (1,000 UNITS) TABLET 50 MCG PO (08:32)
[2025-06-01] MEDS: SODIUM CHLORIDE 500 MG TABLET 1000 MG PO ×2 (08:33→16:47)
[2025-06-01] MEDS: PREGABALIN (*CRX) 75 MG CAPSULE 300 MG PO ×3 (08:33→16:47)
[2025-06-01] MEDS: MEMANTINE 10 MG TABLET PO ×2 (08:34→20:58)
[2025-06-01] MEDS: PRAMIPEXOLE 0.5 MG TABLET PO ×3 (08:34→16:47)
[2025-06-01] MEDS: ENOXAPARIN 40 MG/0.4 ML SYRINGE SUB-Q (08:34)
[2025-06-01] MEDS: FLUTICASONE/SALMETEROL 115-21 MCG INHALER 1 PUFF 2 PUFF INHALATION ×2 (08:46→19:50)
--- NOTE | 2025-06-01 09:45 | P.PNNP_ITS ---
Progress Note: A&P Assessment and Plan (1) Hyponatremia: Code(s): E87.1 - Hypo-osmolality and hyponatremia Status: Acute Assessment and Plan: * slow and steady improvement * noted by admission sodium level * acute on chronic: * patient is aware of this issue (was told about on previous hospitalizations) * present at least as far back as August 2021 * baseline sodium ~ 126 - 132mmol/L in the last year * has been as low as 123mmol/L with acute hospitalizations * discharge sodium on August 2024 (from [facility]) was 131mmol/L * multiple risk factors for low sodium: * COPD/lung disease * medications: - amitriptyline - bupropion - duloxetine - memantine - pain medications/narcotics (oxycodone) - donepezil - pramipexole * thyroid disease * history of CVA * diabetes/hyperglyemia * excessive free water intake(?) * evaluation to date noted: * TSH normal * cortisol okay * CT of head without acute findings * CXR with evidence of possible chronic interstitial disease * CT of chest noted * urine sodium > 40 (but was on lasix) * urine electrolytes non-prerenal * SPEP/UPEP with immunofixation pending * serum/urine osmolality pending * doubt this was etiology of altered mentation on presentation to ER * mentation significantly better w/o any significant change in sodium level by 05/30 morning assessment * slow improvement noted with normal saline IVFs * this argues in favor of a component of volume depletion... * remains on gentle IVFs -- wean off as tolerated * temporarily on salt tabs for now * wean if able * follow trend of repeat/serial sodium levels (2) Hypoglycemia: Code(s): E16.2 - Hypoglycemia, unspecified Status: Acute Assessment and Plan: * resolved * presumed etiology of #4 * thought to be related to administration error at nursing facility (given short acting insulin when patient had not eaten yet...) * improvement noted with dextrose * follow accu-cheks (3) Acute respiratory failure: Code(s): J96.00 - Acute respiratory failure, unspecified whether with hypoxia or hypercapnia Status: Acute Assessment and Plan: * seems stable * possibly due to CO2 retention/hypercapnia exacerbated by altered mental status * improvement noted with application of BiPAP therapy * weaned down to oxygen by nasal cannula * use BiPAP PRN * follow respiratory status (4) Altered mental status: Code(s): R41.82 - Altered mental status, unspecified Status: Acute Assessment and Plan: * clinical improvement noted if not resolved * suspect secondary to hypoglycemia * resolved with administration of dextrose * CO2 retention/narcosis possibly played a role given admission ABG * possibly some improvement with BiPAP therapy * medication related(?) * holding sedative medications * doubt related to low sodium (sodium not much different than on admission at this time and mentation better currently) * CT of head negative * ammonia negative * follow mentation (5) Hyperkalemia: Code(s): E87.5 - Hyperkalemia Status: Acute Assessment and Plan: * resolved * transiently noted by AM labs on 05/30 * s/p lokelma * follow trend of repeat K+ (6) Diabetes mellitus: Code(s): E11.9 - Type 2 diabetes mellitus without complications Status: Acute Assessment and Plan: * see #2 * follow accu-cheks * glycemic control per hospitalist Not much else to add -- will continue to follow from a distance L Subjective Date/time seen: 06/01/25 09:45 Interval history: Follow-up for acute on chronic hyponatremia. Restarted on gentle IVFs overnight due to stagnation of sodium level with improvement noted by AM labs; no other acute issues/events overnight or earlier this morning other than difficulty sleeping at night; breathing/respiratroy status as well as hemodynamics remain fairly stable at the time of my visit. Exam 2 Narrative: General: WD/WN female in NAD Heart: normal S1 and S2; no rub Lungs: clear anteriorly Abdomen: soft, nontender, nondistended, positive bowel sounds Extremities: no cyanosis or clubbing; no edema; s/p right AKA Skin: warm and intact Objective Data Vital Signs Vital Signs: Vital Signs Temp Pulse Resp BP Pulse Ox O2 Del Method O2 Flow Rate 06/01/25 08:53 76 20 06/01/25 08:53 96 Room Air 06/01/25 08:47 72 20 06/01/25 08:00 97.7 F 75 12 155/56 H 92 06/01/25 08:00 75 06/01/25 08:00 75 12 92 Room Air 06/01/25 06:00 60 06/01/25 04:00 97.2 F L 69 18 128/87 96 06/01/25 04:00 69 06/01/25 03:58 64 20 90 Room Air 06/01/25 02:17 77 20 06/01/25 02:00 75 06/01/25 00:00 98.8 F 73 16 134/50 L 90 06/01/25 00:00 73 06/01/25 00:00 Room Air 05/31/25 22:25 82 24 H 97 BiPAP 05/31/25 22:00 70 05/31/25 20:03 88 20 05/31/25 20:00 99.1 F 90 16 154/81 H 89 L 05/31/25 20:00 90 05/31/25 20:00 Room Air 05/31/25 19:59 96 20 97 Room Air 05/31/25 19:54 95 20 05/31/25 18:00 93 05/31/25 16:00 64 20 98 Nasal Cannula 2 05/31/25 16:00 98.8 F 73 12 153/56 H 95 05/31/25 16:00 73 05/31/25 14:00 74 05/31/25 13:25 90 23 H 05/31/25 13:19 89 28 H Intake/Output Intake/Output: Intake & Output 05/29/25 05/30/25 05/31/25 06/01/25 23:59 23:59 23:59 23:59 Intake Total 3018.7 1040 240 Output Total 3550 5650 3000 Balance -531.3 -4610 -2700 Meds/Results Medications: Active Medications Generic Name Dose Route Start Last Admin Trade Name Freq PRN Reason Stop Dose Admin Albuterol/Ipratropium 3 ml 05/30/25 20:00 06/01/25 08:45 Ipratropium 0.5 Mg/Albuterol Sulfate 2.5 Mg (Base) Ampul.Neb 3 Ml INHALATION 3 ml Q6HRT BALAJI Administration Amitriptyline HCl 50 mg 05/30/25 21:00 05/31/25 20:19 Amitriptyline Hcl 25 Mg Tablet PO 50 mg HS BALAJI Administration Aspirin 81 mg 05/30/25 11:00 06/01/25 08:31 Aspirin 81 Mg Chewable Tablet PO 81 mg DAILY BALAJI Administration Atorvastatin Calcium 40 mg 05/30/25 21:00 05/31/25 20:19 Atorvastatin 40 Mg Tablet PO 40 mg HS BALAJI Administration Bupropion HCl 150 mg 05/31/25 09:00 06/01/25 08:31 Bupropion Hcl Xl (24 Hr) 150 Mg Tabcr PO 150 mg DAILY BALAJI Administration Dextrose 12.5 gm 05/30/25 11:37 Dextrose 50% 25 Gm/50 Ml Syringe IV PUSH PRN PRN Hypoglycemia Protocol Donepezil HCl 10 mg 05/30/25 21:00 05/31/25 20:19 Donepezil Hcl 10 Mg Tablet PO 10 mg HS ABLAJI Administration Duloxetine HCl 20 mg 05/31/25 09:00 06/01/25 08:34 Duloxetine Hcl 20 Mg Capsule.Dr PO 20 mg BID BALAJI Administration Enoxaparin Sodium 40 mg 05/30/25 10:15 06/01/25 08:34 Enoxaparin 40 Mg/0.4 Ml Syringe SUB-Q 40 mg DAILY BALAJI Administration Glucagon 1 mg 05/30/25 11:37 Glucagon For Inj 1 Mg Vial IM PRN PRN Hypoglycemia Protocol Glucose 15 gm 05/30/25 11:37 Glucose Oral Gel 15 Gm Of Glucse In 37.5 Gm Tube PO PRN PRN Hypoglycemia Protocol Hydralazine HCl 20 mg 05/30/25 14:48 05/31/25 11:41 Hydralazine Hcl 20 Mg/Ml Vial IV PUSH 20 mg Q4H PRN Administration SBP more than 160 Dextrose 1,000 mls @ 100 mls/hr 05/30/25 11:37 Dextrose 5% 1,000 Ml IVPB PRN PRN Hypoglycemia Protocol Sodium Chloride 1,000 mls @ 75 mls/hr 05/31/25 21:50 05/31/25 22:09 Normal Saline Iv IV CONT 75 mls/hr .[id number] BALAJI Administration Insulin Aspart 4 - 8 units 05/30/25 12:00 06/01/25 11:51 Insulin Aspart (*Bkc) 100 Units/Ml SUB-Q Not Given TIDWM BALAJI Protocol Insulin Aspart 2 - 4 units 05/30/25 21:00 05/31/25 20:20 Insulin Aspart (*Bkc) 100 Units/Ml SUB-Q Not Given HS BALAJI Protocol Insulin Glargine 20 units 05/31/25 21:00 05/31/25 20:25 Insulin Glargine (*Bkc) 100 Units/Ml SUB-Q 20 units HS BALAJI Administration Levothyroxine Sodium 75 mcg 05/31/25 06:30 06/01/25 06:03 Levothyroxine Sodium 75 Mcg Tablet PO 75 mcg DAILY@0630 BALAJI Administration Levothyroxine Sodium 100 mcg 05/30/25 11:00 06/01/25 06:03 Levothyroxine Sodium 100 Mcg Tablet PO 100 mcg DAILY@0630 BALAJI Administration Loratadine 10 mg 05/30/25 11:00 06/01/25 08:32 Loratadine 10 Mg Tablet PO 10 mg DAILY BALAJI Administration Memantine 10 mg 05/30/25 21:00 06/01/25 08:34 Memantine 10 Mg Tablet PO 10 mg Q12HR BALAJI Administration Metoclopramide HCl 10 mg 05/31/25 06:30 06/01/25 11:50 Metoclopramide Hcl 10 Mg Tablet PO 10 mg AC BALAJI Administration Miscellaneous Information 1 each 05/30/25 00:01 06/01/25 05:19 Med Rec Order Clarification - Guaifenesin [Chest Congestion Relief] 400 Mg Tablet) XX 06/29/25 00:00 Not Given CLARIFY [facility] Miscellaneous Information 1 each 05/30/25 00:01 06/01/25 05:18 Med Rec Order Clarification - Cholecalciferol 50,000 Units XX 06/29/25 00:00 Not Given CLARIFY [facility] Ondansetron HCl 4 mg 05/30/25 03:49 Ondansetron Inj 4 Mg/2 Ml Vial IV PUSH Q4H PRN Nausea Perflutren Lipid Microsphere 0 ml 05/30/25 09:38 Perflutren Lipid Microspheres 1.5 Ml Vial Diluted To 10 Ml Total Volume IV PUSH 06/02/25 09:38 ONCE PRN adequate visualization Protocol Polyethylene Glycol 17 gm 05/30/25 10:14 Polyethylene Glycol 3350 17 Gm Powd.Pack PO DAILY PRN Constipation Pramipexole Dihydrochloride 0.5 mg 05/31/25 09:00 06/01/25 08:34 Pramipexole 0.5 Mg Tablet PO 0.5 mg TID BALAJI Administration Prednisone 40 mg 05/31/25 08:00 06/01/25 08:30 Prednisone 20 Mg Tablet PO 40 mg DAILY@0800 BALAJI Administration Pregabalin 300 mg 05/30/25 19:20 06/01/25 08:33 Pregabalin (*Crx) 75 Mg Capsule PO 300 mg TID BALAJI Administration Fluticasone/Salmeterol 2 puff 05/30/25 20:00 06/01/25 08:46 Fluticasone/Salmeterol 115-21 Mcg Inhaler 1 Puff INHALATION 2 puff Q12HRT BALAJI Administration Sodium Chloride 1,000 mg 05/30/25 09:00 06/01/25 08:33 Sodium Chloride 500 Mg Tablet PO 1,000 mg BID BALAJI Administration Vitamin D 50 mcg 05/30/25 11:00 06/01/25 08:32 Cholecalciferol (Vitamin D3) 25 Mcg (1,000 Units) Tablet PO 50 mcg DAILY BALAJI Administration Radiology Results: ITS Impressions Head CT 05/30/25 07:29 IMPRESSION: 1. 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 Chronic encephalomalacia in the left frontal temporal region. 2. Moderate nonspecific cerebral white matter disease, which likely represents chronic small vessel ischemic disease. Chest CT 05/31/25 09:57 IMPRESSION: 1. Small sliding hiatal hernia. Chest X-Ray 05/31/25 18:45 Impression: No acute cardiopulmonary abnormality. Labs Labs: Laboratory Tests 06/01/25 03:51 06/01/25 03:51 Calcium 8.2 L Phosphorus 3.0 Magnesium 2.0 Total Bilirubin 0.4 AST 31 ALT 21 Alkaline Phosphatase 110 Total Protein 6.5 Albumin 3.5
[2025-06-01 13:08] LABS: Chloride, Urine <20 mmol/L (Not Estab.)
[2025-06-01 15:09] LABS: Albumin 3.2 g/dL (2.9-4.4); Alpha-1-Globulin 0.2 g/dL (0.0-0.4); Alpha-2-Globulin 0.7 g/dL (0.4-1.0); Gamma Globulin 1.1 g/dL (0.4-1.8)
[2025-06-01] MEDS: SODIUM CHLORIDE 0.9% IV 1,000 ML 75 ML IV CONT (16:42)
[2025-06-01] MEDS: INSULIN ASPART (*BKC) 100 UNITS/ML SUB-Q ×2 (16:47→20:57)
[2025-06-01] MEDS: INSULIN GLARGINE (*BKC) 100 UNITS/ML 20 UNITS SUB-Q (20:57)
[2025-06-01] MEDS: DONEPEZIL HCL 10 MG TABLET PO (20:58)
[2025-06-01] MEDS: ATORVASTATIN 40 MG TABLET PO (20:58)
[2025-06-01] MEDS: AMITRIPTYLINE HCL 25 MG TABLET 50 MG PO (20:58)
[2025-06-02] VITALS (16 sets, daily range): BP systolic 144–159; BP diastolic 60–82; PULSE 63–76; RESP 16–20; TEMP 36.4–36.8; O2SAT 92–95
[2025-06-02] MEDS: IPRATROPIUM 0.5 MG/ALBUTEROL SULFATE 2.5 MG (BASE) AMPUL.NEB 3 ML INHALATION ×4 (02:45→20:36)
[2025-06-02 03:56] LABS: Hematocrit 35.8 % (37.0-47.0); Hemoglobin 12.1 g/dL (12.0-15.0); Mean Corpuscular HGB Conc 33.8 g/dl (32-36); Mean Corpuscular Hemoglobin 29.5 pg (26-34); Mean Corpuscular Volume 87.3 fl (80-100); Platelet Count Result 309 k/mm3 (150-375); Red Blood Count 4.10 M/mm3 (4.2-5.4); White Blood Count 6.5 K/mm3 (4.5-10.0)
[2025-06-02 04:07] LABS: Alanine Aminotransferase 19 U/L (6-35); Albumin Level 3.4 g/dL (3.5-5.1); Alkaline Phosphatase 109 U/L (38-126); Anion Gap 4 mmol/L (4-12); Aspartate Amino Transferase 23 U/L (14-36); Bilirubin,Total 0.4 mg/dL (0.2-1.3); Blood Urea Nitrogen 15 mg/dL (7-17); Calcium 8.1 mg/dL (8.4-10.2); Carbon Dioxide 30 mmol/L (22-30); Chloride 95 mmol/L (98-107); Estimated CRCL calculation 97 ml/min; Estimated Glomerular Filt Rate > 60; Glucose 149 mg/dL (65-110); Magnesium 1.9 mg/dL (1.6-2.3); Potassium 4.1 mmol/L (3.4-5.0); Sodium 129 mmol/L (137-145); Total Protein 6.3 g/dL (6.3-8.2)
[2025-06-02] MEDS: SODIUM CHLORIDE 0.9% IV 1,000 ML 75 ML IV CONT ×2 (04:30→19:26)
[2025-06-02] MEDS: LEVOTHYROXINE SODIUM 100 MCG TABLET PO (05:35)
[2025-06-02] MEDS: LEVOTHYROXINE SODIUM 75 MCG TABLET PO (05:35)
[2025-06-02] MEDS: METOCLOPRAMIDE HCL 10 MG TABLET PO ×3 (05:35→16:50)
[2025-06-02] MEDS: FLUTICASONE/SALMETEROL 115-21 MCG INHALER 1 PUFF 2 PUFF INHALATION ×2 (07:30→20:37)
[2025-06-02] MEDS: ENOXAPARIN 40 MG/0.4 ML SYRINGE SUB-Q (08:06)
[2025-06-02] MEDS: SODIUM CHLORIDE 500 MG TABLET 1000 MG PO ×2 (08:06→16:50)
[2025-06-02] MEDS: MEMANTINE 10 MG TABLET PO ×2 (08:06→21:56)
[2025-06-02] MEDS: LORATADINE 10 MG TABLET PO (08:06)
[2025-06-02] MEDS: PRAMIPEXOLE 0.5 MG TABLET PO ×3 (08:06→16:50)
[2025-06-02] MEDS: PREGABALIN (*CRX) 75 MG CAPSULE 300 MG PO ×3 (08:06→16:49)
[2025-06-02] MEDS: ASPIRIN 81 MG CHEWABLE TABLET PO (08:07)
[2025-06-02] MEDS: CHOLECALCIFEROL (VITAMIN D3) 25 MCG (1,000 UNITS) TABLET 50 MCG PO (08:07)
[2025-06-02] MEDS: buPROPion HCL XL (24 HR) 150 MG TABCR PO (08:07)
--- NOTE | 2025-06-02 11:08 | P.PNIM_ITS ---
Progress Note: A&P Assessment and Plan (1) Encephalopathy acute: Code(s): G93.40 - Encephalopathy, unspecified Status: Acute Assessment and Plan: Presented with acute encephalopathy which is likely secondary to hypoglycemia as it has resolved after administration of dextrose. Patient also has is hyponatremia but hyponatremia is still present and mental status has improved his suggesting against the etiology Head CT was negative ABG reviewed TSH and ammonia normal Hyponatremia management as below Hold sedatives Patient now back to baseline (2) Hyponatremia: Code(s): E87.1 - Hypo-osmolality and hyponatremia Status: Acute Assessment and Plan: Patient presented with hyponatremia with normal renal function Differential includes dehydration as patient is on diuretics vs medication induced as patient is on several psychiatric medications vs SIADH Nephrology has been managing sodium till now patient is currently off any fluids in sodium is improved to 128 Will defer further evaluation and management to Nephrology. CT chest was negative TSH is normal, random cortisol level is in normal range -sodium levels have been improving gradually, 129 this (3) COPD (chronic obstructive pulmonary disease): Code(s): J44.9 - Chronic obstructive pulmonary disease, unspecified Status: Acute Assessment and Plan: Bronchodilators, Advair -decrease steroids (4) Hypoglycemia: Code(s): E16.2 - Hypoglycemia, unspecified Status: Acute Assessment and Plan: Patient presented with altered mental status and hypoglycemia. Hypoglycemia appears to be secondary to error with insulin. Blood glucose had improved and patient became hyperglycemic. Lantus was resumed last night. She had a blood glucose of 45 this morning. Patient is asymptomatic and is now eating. Will monitor blood glucose. Continue Lantus at a low rate at this time. -steroids being weaned also will have blood sugars (5) Diabetes mellitus: Code(s): E11.9 - Type 2 diabetes mellitus without complications Status: Acute Assessment and Plan: See above (6) Respiratory failure: Code(s): J96.90 - Respiratory failure, unspecified, unspecified whether with hypoxia or hypercapnia Status: Acute Assessment and Plan: Patient has history of COPD and presented with respiratory acidosis which could have been exacerbated by her encephalopathy. Patient was placed on BiPAP. ABG has improved. Patient is now awake alert and off oxygen. Will use BiPAP on p.r.n. basis if needed. Chest x-ray was clear. CT chest done and negative -weaning steroids (7) Hyperkalemia: Code(s): E87.5 - Hyperkalemia Status: Acute Assessment and Plan: Pt given Lokelma. Potassium normalized Nephrology managing -potassium has normalized (8) Hyperlipidemia: Code(s): E78.5 - Hyperlipidemia, unspecified Status: Acute Assessment and Plan: Continue statin (9) Depression: Code(s): F32.A - Depression, unspecified Status: Acute Assessment and Plan: psychiatric medications resume (10) Anxiety: Code(s): F41.9 - Anxiety disorder, unspecified Status: Acute Assessment and Plan: Medications resume (11) Peripheral arterial disease: Code(s): I73.9 - Peripheral vascular disease, unspecified Status: Acute Assessment and Plan: Aspirin statin (12) Hypothyroidism: Code(s): E03.9 - Hypothyroidism, unspecified Status: Acute Assessment and Plan: Continue levothyroxine (13) Dementia: Code(s): F03.90 - Unspecified dementia, unspecified severity, without behavioral disturbance, psychotic disturbance, mood disturbance, and anxiety Status: Acute Assessment and Plan: Home medications resumed Plan DVT prophylaxis -Lovenox Nutrition -diabetic diet Code Status - Full Code Incentive spirometry, up in chair, PT OT Subjective Date/time seen: 06/02/25 11:08 Interval history: 65 year old female past medical history of COPD, dementia, hypothyroidism, CVA, peripheral artery disease, anxiety, depression, type 2 diabetes, hyperlipidemia, status post right AKA was mostly on account of altered mental status. Blood sugar on scene by EMS was 20. Patient was given dextrose infusion Labs notable for WBC 9.8, ABG 7.26/60/97/26, repeat was 7.34/53.1/93.426.7, sodium 114, potassium 4.0, blood sugar [address] head no acute changes. Chest x-ray shows or pulmonary edema pneumonitis versus chronic interstitial disease. 06/02/2025: Patient being seen for hospitalist team Patient is awake, alert, oriented x3, on 2 L nasal cannula with good O2 sats. Denies any chest pain, shortness a breath, abdominal pain, nausea, vomiting. Good urine output, tolerating oral diet. Afebrile, hemodynamically stable. Sodium levels improving to 129 this morning Review of Systems Review of Systems: All systems reviewed & are unremarkable except as noted in HPI and below (HPI) Exam Narrative: General: Pt is alert awake and in NAD HEENT: Pupils equal and reactive, sclera ischemia, moist oral mucosa Lungs/Chest: Trachea central Clear BS B/L, No crackles or wheezing. Adequate air entry Cardiac: RRR. Normal S1 S2. No murmurs Abdomen: Nontender, nondistended, soft, normoactive bowel sounds Extremities: Right BKA, decreased pulses on the left, left foot is more warm this morning : Heller in place Neurologic: Eyelid, oriented x3, nonfocal. No answers to questions appropriately and follows simple commands in all extremities Skin: No Rash Psych: Normal mentation and affect Objective Data Vital Signs Vital Signs: Vital Signs - 24 hr 06/01/25 11:24 06/01/25 12:00 06/01/25 14:00 Temperature Pulse Rate 79 69 Respiratory Rate Blood Pressure Pulse Oximetry Oxygen Delivery Room Air Oxygen Flow Rate 06/01/25 14:06 06/01/25 14:19 06/01/25 16:00 Temperature Pulse Rate 82 84 75 Respiratory Rate 16 16 Blood Pressure Pulse Oximetry Oxygen Delivery Oxygen Flow Rate 06/01/25 16:00 06/01/25 18:00 06/01/25 19:55 Temperature 98.3 F Pulse Rate 84 84 76 Respiratory Rate 13 16 Blood Pressure 170/80 H Pulse Oximetry 90 Oxygen Delivery Oxygen Flow Rate 06/01/25 20:00 06/01/25 20:00 06/01/25 20:00 Temperature Pulse Rate 81 Respiratory Rate Blood Pressure Pulse Oximetry 96 Oxygen Delivery Room Air Room Air Oxygen Flow Rate 06/01/25 20:05 06/01/25 22:00 06/02/25 00:00 Temperature 98.0 F Pulse Rate 82 78 71 Respiratory Rate 16 19 Blood Pressure 159/82 H Pulse Oximetry 95 Oxygen Delivery Oxygen Flow Rate 06/02/25 00:00 06/02/25 02:00 06/02/25 02:45 Temperature Pulse Rate 72 66 64 Respiratory Rate 16 Blood Pressure Pulse Oximetry Oxygen Delivery Oxygen Flow Rate 06/02/25 02:55 06/02/25 03:00 06/02/25 04:00 Temperature Pulse Rate 68 63 Respiratory Rate 16 Blood Pressure Pulse Oximetry 94 Oxygen Delivery Nasal Cannula Oxygen Flow Rate 2 06/02/25 06:00 06/02/25 07:30 06/02/25 07:56 Temperature 97.6 F Pulse Rate 69 70 76 Respiratory Rate 16 16 Blood Pressure 153/60 H Pulse Oximetry 94 Oxygen Delivery Oxygen Flow Rate 06/02/25 08:00 06/02/25 08:00 06/02/25 10:00 Temperature Pulse Rate 73 71 Respiratory Rate Blood Pressure Pulse Oximetry 94 Oxygen Delivery Nasal Cannula Oxygen Flow Rate 2 Intake/Output Intake/Output: Intake & Output 05/30/25 05/31/25 06/01/25 06/02/25 23:59 23:59 23:59 23:59 Intake Total 3018.7 1040 2360 2820.5 Output Total 3550 5650 7450 1800 Balance -531.3 -4610 -5090 1020.5 Meds/Results Medications: Active Medications Generic Name Dose Route Start Last Admin Trade Name Freq PRN Reason Stop Dose Admin Albuterol/Ipratropium 3 ml 05/30/25 20:00 06/02/25 07:29 Ipratropium 0.5 Mg/Albuterol Sulfate 2.5 Mg (Base) Ampul.Neb 3 Ml INHALATION 3 ml Q6HRT BALAJI Administration Amitriptyline HCl 50 mg 05/30/25 21:00 06/01/25 20:58 Amitriptyline Hcl 25 Mg Tablet PO 50 mg HS BALAJI Administration Aspirin 81 mg 05/30/25 11:00 06/02/25 08:07 Aspirin 81 Mg Chewable Tablet PO 81 mg DAILY BALAJI Administration Atorvastatin Calcium 40 mg 05/30/25 21:00 06/01/25 20:58 Atorvastatin 40 Mg Tablet PO 40 mg HS BALAJI Administration Bupropion HCl 150 mg 05/31/25 09:00 06/02/25 08:07 Bupropion Hcl Xl (24 Hr) 150 Mg Tabcr PO 150 mg DAILY BALAJI Administration Dextrose 12.5 gm 05/30/25 11:37 Dextrose 50% 25 Gm/50 Ml Syringe IV PUSH PRN PRN Hypoglycemia Protocol Donepezil HCl 10 mg 05/30/25 21:00 06/01/25 20:58 Donepezil Hcl 10 Mg Tablet PO 10 mg HS BALAJI Administration Duloxetine HCl 20 mg 05/31/25 09:00 06/02/25 08:06 Duloxetine Hcl 20 Mg Capsule.Dr PO 20 mg BID BALAJI Administration Enoxaparin Sodium 40 mg 05/30/25 10:15 06/02/25 08:06 Enoxaparin 40 Mg/0.4 Ml Syringe SUB-Q 40 mg DAILY BALAJI Administration Glucagon 1 mg 05/30/25 11:37 Glucagon For Inj 1 Mg Vial IM PRN PRN Hypoglycemia Protocol Glucose 15 gm 05/30/25 11:37 Glucose Oral Gel 15 Gm Of Glucse In 37.5 Gm Tube PO PRN PRN Hypoglycemia Protocol Hydralazine HCl 20 mg 05/30/25 14:48 05/31/25 11:41 Hydralazine Hcl 20 Mg/Ml Vial IV PUSH 20 mg Q4H PRN Administration SBP more than 160 Dextrose 1,000 mls @ 100 mls/hr 05/30/25 11:37 Dextrose 5% 1,000 Ml IVPB PRN PRN Hypoglycemia Protocol Sodium Chloride 1,000 mls @ 75 mls/hr 05/31/25 21:50 06/02/25 08:00 Normal Saline Iv IV CONT 75 mls/hr .[id number] BALAJI Infusion Insulin Aspart 4 - 8 units 05/30/25 12:00 06/02/25 07:55 Insulin Aspart (*Bkc) 100 Units/Ml SUB-Q Not Given TIDWM BALAJI Protocol Insulin Aspart 2 - 4 units 05/30/25 21:00 06/01/25 20:57 Insulin Aspart (*Bkc) 100 Units/Ml SUB-Q 4 units HS BALAJI Administration Protocol Insulin Glargine 20 units 05/31/25 21:00 06/01/25 20:57 Insulin Glargine (*Bkc) 100 Units/Ml SUB-Q 20 units HS BALAJI Administration Levothyroxine Sodium 75 mcg 05/31/25 06:30 06/02/25 05:35 Levothyroxine Sodium 75 Mcg Tablet PO 75 mcg DAILY@0630 BALAJI Administration Levothyroxine Sodium 100 mcg 05/30/25 11:00 06/02/25 05:35 Levothyroxine Sodium 100 Mcg Tablet PO 100 mcg DAILY@0630 BALAJI Administration Loratadine 10 mg 05/30/25 11:00 06/02/25 08:06 Loratadine 10 Mg Tablet PO 10 mg DAILY BALAJI Administration Memantine 10 mg 05/30/25 21:00 06/02/25 08:06 Memantine 10 Mg Tablet PO 10 mg Q12HR BALAJI Administration Metoclopramide HCl 10 mg 05/31/25 06:30 06/02/25 05:35 Metoclopramide Hcl 10 Mg Tablet PO 10 mg AC BALAJI Administration Miscellaneous Information 1 each 05/30/25 00:01 06/02/25 02:52 Med Rec Order Clarification - Guaifenesin [Chest Congestion Relief] 400 Mg Tablet) XX 06/29/25 00:00 Not Given [facility] Miscellaneous Information 1 each 05/30/25 00:01 06/02/25 02:51 Med Rec Order Clarification - Cholecalciferol 50,000 Units XX 06/29/25 00:00 Not Given [facility] Ondansetron HCl 4 mg 05/30/25 03:49 Ondansetron Inj 4 Mg/2 Ml Vial IV PUSH Q4H PRN Nausea Polyethylene Glycol 17 gm 05/30/25 10:14 Polyethylene Glycol 3350 17 Gm Powd.Pack PO DAILY PRN Constipation Pramipexole Dihydrochloride 0.5 mg 05/31/25 09:00 06/02/25 08:06 Pramipexole 0.5 Mg Tablet PO 0.5 mg TID BALAJI Administration Prednisone 20 mg 06/02/25 08:00 06/02/25 08:06 Prednisone 20 Mg Tablet PO 06/03/25 23:59 20 mg DAILY@0800 BALAJI Administration Pregabalin 300 mg 05/30/25 19:20 06/02/25 08:06 Pregabalin (*Crx) 75 Mg Capsule PO 300 mg TID BALAJI Administration Fluticasone/Salmeterol 2 puff 05/30/25 20:00 06/02/25 07:30 Fluticasone/Salmeterol 115-21 Mcg Inhaler 1 Puff INHALATION 2 puff Q12HRT BALAJI Administration Sodium Chloride 1,000 mg 05/30/25 09:00 06/02/25 08:06 Sodium Chloride 500 Mg Tablet PO 1,000 mg BID BALAJI Administration Vitamin D 50 mcg 05/30/25 11:00 06/02/25 08:07 Cholecalciferol (Vitamin D3) 25 Mcg (1,000 Units) Tablet PO 50 mcg DAILY BALAJI Administration Radiology Results: ITS Impressions Head CT 05/30/25 07:29 IMPRESSION: 1. 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 Chronic encephalomalacia in the left frontal temporal region. 2. Moderate nonspecific cerebral white matter disease, which likely represents chronic small vessel ischemic disease. Chest CT 05/31/25 09:57 IMPRESSION: 1. Small sliding hiatal hernia. Chest X-Ray 05/31/25 18:45 Impression: No acute cardiopulmonary abnormality. Labs Labs: Laboratory Results - last 24 hr 05/30/25 05/30/25 06/01/25 00:22 08:15 11:35 WBC RBC Hgb Hct MCV MCH MCHC RDW Plt Count MPV Sodium Potassium Chloride Carbon Dioxide Anion Gap BUN Creatinine Estim Creat Clear Calc Estimated GFR Glucose POC Capillary Glucose 118 H Calcium Phosphorus Magnesium Total Bilirubin AST ALT Alkaline Phosphatase Total Protein Total Protein (PEP) 6.2 Albumin Albumin (PEP) 3.2 Globulin (PEP) 3.0 Albumin/Globulin Ratio 1.1 Medhh-5-Uberkooxj 0.2 Lfjck-2-Elzxwtasf 0.7 Beta Globulins 1.0 Gamma Globulins 1.1 PEP Comment Comment Ur Random Creatinine 60.3 Urine Chloride <20 Pr Electrophoresis MSpike Not observed 06/01/25 06/01/25 06/02/25 16:33 20:55 03:49 WBC 6.5 RBC 4.10 L Hgb 12.1 Hct 35.8 L MCV 87.3 MCH 29.5 MCHC 33.8 RDW 14.2 Plt Count 309 MPV 9.7 Sodium 129 L Potassium 4.1 Chloride 95 L Carbon Dioxide 30 Anion Gap 4 BUN 15 Creatinine 0.50 L Estim Creat Clear Calc 97 Estimated GFR > 60 Glucose 149 H POC Capillary Glucose 389 H 354 H Calcium 8.1 L Phosphorus 3.1 Magnesium 1.9 Total Bilirubin 0.4 AST 23 ALT 19 Alkaline Phosphatase 109 Total Protein 6.3 Total Protein (PEP) Albumin 3.4 L Albumin (PEP) Globulin (PEP) Albumin/Globulin Ratio Gzeqd-7-Kmrkguaux Qryvf-1-Uhiodzpoq Beta Globulins Gamma Globulins PEP Comment Ur Random Creatinine Urine Chloride Pr Electrophoresis MSpike 06/02/25 07:48 WBC RBC Hgb Hct MCV MCH MCHC RDW Plt Count MPV Sodium Potassium Chloride Carbon Dioxide Anion Gap BUN Creatinine Estim Creat Clear Calc Estimated GFR Glucose POC Capillary Glucose 89 Calcium Phosphorus Magnesium Total Bilirubin AST ALT Alkaline Phosphatase Total Protein Total Protein (PEP) Albumin Albumin (PEP) Globulin (PEP) Albumin/Globulin Ratio Scmnu-4-Vbuzgmvwj Pjben-4-Cybmhvuhb Beta Globulins Gamma Globulins PEP Comment Ur Random Creatinine Urine Chloride Pr Electrophoresis MSpike Quality VTE Prophylaxis VTE prophylaxis: pharmacologic ordered
--- NOTE | 2025-06-02 12:11 | PC.NURSE ---
This patient, Analia Hernandez, was received from ICU on 06/02/25 at 1211. Patient/family oriented to unit policies and routines
[2025-06-02] MEDS: INSULIN ASPART (*BKC) 100 UNITS/ML SUB-Q ×3 (12:37→21:57)
[2025-06-02 14:08] LABS: Albumin, U 30.6 % (.); Alpha-1-Globulin, U 5.7 % (.); Alpha-2-Globulin, U 9.2 % (.); Beta Globulin, U 41.3 % (.); Gamma Globulin, U 13.3 % (.)
[2025-06-02 14:08] LABS: Immunoglobulin A, Qn 293 mg/dL (87-352); Immunoglobulin G, Qn 1142 mg/dL (586-1602); Immunoglobulin M, Qn 30 mg/dL (26-217)
[2025-06-02] MEDS: guaiFENesin 12 HR 600 MG TABCR PO (21:56)
[2025-06-02] MEDS: AMITRIPTYLINE HCL 25 MG TABLET 50 MG PO (21:56)
[2025-06-02] MEDS: ATORVASTATIN 40 MG TABLET PO (21:56)
[2025-06-02] MEDS: DONEPEZIL HCL 10 MG TABLET PO (21:56)
[2025-06-02] MEDS: INSULIN GLARGINE (*BKC) 100 UNITS/ML 20 UNITS SUB-Q (21:58)
[2025-06-03] VITALS (12 sets, daily range): BP systolic 128–149; BP diastolic 54–57; PULSE 67–82; RESP 14–20; TEMP 36.3–36.7; O2SAT 92–100
[2025-06-03] MEDS: IPRATROPIUM 0.5 MG/ALBUTEROL SULFATE 2.5 MG (BASE) AMPUL.NEB 3 ML INHALATION ×4 (03:22→19:48)
[2025-06-03 05:15] LABS: Hematocrit 36.3 % (37.0-47.0); Hemoglobin 12.1 g/dL (12.0-15.0); Immature Granulocyte Percent A 0.4 % (0-0.5); Lymphocytes Absolute Auto 2.38 K/mm3 (0.9-3.2); Mean Corpuscular HGB Conc 33.3 g/dl (32-36); Mean Corpuscular Hemoglobin 29.2 pg (26-34); Mean Corpuscular Volume 87.7 fl (80-100); Nucleated Red Blood Cells Absolute Auto 0.000 K/mm3 (0.0-0.012); Nucleated Red Blood Cells Perc 0.0 % (0.0-0.2); Platelet Count Result 301 k/mm3 (150-375); Red Blood Count 4.14 M/mm3 (4.2-5.4); White Blood Count 7.4 K/mm3 (4.5-10.0)
[2025-06-03 05:54] LABS: Alanine Aminotransferase 22 U/L (6-35); Albumin Level 3.4 g/dL (3.5-5.1); Alkaline Phosphatase 106 U/L (38-126); Anion Gap 3 mmol/L (4-12); Aspartate Amino Transferase 29 U/L (14-36); Bilirubin,Total 0.3 mg/dL (0.2-1.3); Blood Urea Nitrogen 13 mg/dL (7-17); Calcium 8.1 mg/dL (8.4-10.2); Carbon Dioxide 30 mmol/L (22-30); Chloride 94 mmol/L (98-107); Estimated CRCL calculation 94 ml/min; Estimated Glomerular Filt Rate > 60; Glucose 184 mg/dL (65-110); Magnesium 1.9 mg/dL (1.6-2.3); Potassium 4.0 mmol/L (3.4-5.0); Sodium 127 mmol/L (137-145); Total Protein 6.3 g/dL (6.3-8.2)
[2025-06-03] MEDS: LEVOTHYROXINE SODIUM 100 MCG TABLET PO (06:25)
[2025-06-03] MEDS: LEVOTHYROXINE SODIUM 75 MCG TABLET PO (06:25)
[2025-06-03] MEDS: METOCLOPRAMIDE HCL 10 MG TABLET PO ×3 (06:25→17:16)
[2025-06-03] MEDS: FLUTICASONE/SALMETEROL 115-21 MCG INHALER 1 PUFF 2 PUFF INHALATION ×2 (08:00→19:47)
[2025-06-03] MEDS: PREGABALIN (*CRX) 75 MG CAPSULE 300 MG PO ×3 (08:30→17:16)
[2025-06-03] MEDS: PRAMIPEXOLE 0.5 MG TABLET PO ×3 (08:31→17:16)
[2025-06-03] MEDS: CHOLECALCIFEROL (VITAMIN D3) 25 MCG (1,000 UNITS) TABLET 50 MCG PO (08:31)
[2025-06-03] MEDS: LORATADINE 10 MG TABLET PO (08:31)
[2025-06-03] MEDS: ASPIRIN 81 MG CHEWABLE TABLET PO (08:31)
[2025-06-03] MEDS: buPROPion HCL XL (24 HR) 150 MG TABCR PO (08:31)
[2025-06-03] MEDS: SODIUM CHLORIDE 500 MG TABLET 1000 MG PO ×2 (08:31→17:16)
[2025-06-03] MEDS: MEMANTINE 10 MG TABLET PO ×2 (08:31→21:07)
[2025-06-03] MEDS: guaiFENesin 12 HR 600 MG TABCR PO ×2 (08:31→21:06)
[2025-06-03] MEDS: ENOXAPARIN 40 MG/0.4 ML SYRINGE SUB-Q (08:34)
--- NOTE | 2025-06-03 12:09 | P.PNIM_ITS ---
Progress Note: A&P Assessment and Plan (1) Encephalopathy acute: Code(s): G93.40 - Encephalopathy, unspecified Status: Acute Assessment and Plan: Presented with acute encephalopathy which is likely secondary to hypoglycemia as it has resolved after administration of dextrose. Patient also has is hyponatremia but hyponatremia is still present and mental status has improved his suggesting against the etiology Head CT was negative ABG reviewed TSH and ammonia normal Hyponatremia management as below Hold sedatives Patient now back to baseline (2) Hyponatremia: Code(s): E87.1 - Hypo-osmolality and hyponatremia Status: Acute Assessment and Plan: Patient presented with hyponatremia with normal renal function Differential includes dehydration as patient is on diuretics vs medication induced as patient is on several psychiatric medications vs SIADH Nephrology has been managing sodium till now patient is currently off any fluids in sodium is improved to 128 Will defer further evaluation and management to Nephrology. CT chest was negative TSH is normal, random cortisol level is in normal range -sodium levels have been improving gradually, 129 this (3) COPD (chronic obstructive pulmonary disease): Code(s): J44.9 - Chronic obstructive pulmonary disease, unspecified Status: Acute Assessment and Plan: Bronchodilators, Advair -decrease steroids (4) Hypoglycemia: Code(s): E16.2 - Hypoglycemia, unspecified Status: Acute Assessment and Plan: Patient presented with altered mental status and hypoglycemia. Hypoglycemia appears to be secondary to error with insulin. Blood glucose had improved and patient became hyperglycemic. Lantus was resumed last night. She had a blood glucose of 45 this morning. Patient is asymptomatic and is now eating. Will monitor blood glucose. Continue Lantus at a low rate at this time. -steroids being weaned also will have blood sugars 06/03::During the evaluation, the patient reported that initially she was on an insulin pump, but unfortunately was unable to continue on the insulin pump at [facility], and her insulin regimen was Lantus 30U AM, 25 U HS, and with 1U: 12 CHO. The patient was admitted due to an incident of hypoglycemia at the [facility]. Patient reports she slept after her dinner, which she had around 5 pm, and didn't have her nighttime snack because she slept and woke when everyone was around her, and she was disoriented.During the hospitalization patient has incidence day hyperglycemia and straightener hypoglycemia.Her insulin is been adjusted today: Decreased Lantus 20U HS to 18 U HS, added Novolog 5 U TID, de-escalated High dose SSI to Moderate dose SSI.Consulted certified diabetes educator. (5) Diabetes mellitus: Code(s): E11.9 - Type 2 diabetes mellitus without complications Status: Acute Assessment and Plan: See above (6) Respiratory failure: Code(s): J96.90 - Respiratory failure, unspecified, unspecified whether with hypoxia or hypercapnia Status: Acute Assessment and Plan: Patient has history of COPD and presented with respiratory acidosis which could have been exacerbated by her encephalopathy. Patient was placed on BiPAP. ABG has improved. Patient is now awake alert and off oxygen. Will use BiPAP on p.r.n. basis if needed. Chest x-ray was clear. CT chest done and negative -weaning steroids (7) Hyperkalemia: Code(s): E87.5 - Hyperkalemia Status: Acute Assessment and Plan: Pt given Lokelma. Potassium normalized Nephrology managing -potassium has normalized (8) Hyperlipidemia: Code(s): E78.5 - Hyperlipidemia, unspecified Status: Acute Assessment and Plan: Continue statin (9) Depression: Code(s): F32.A - Depression, unspecified Status: Acute Assessment and Plan: psychiatric medications resume (10) Anxiety: Code(s): F41.9 - Anxiety disorder, unspecified Status: Acute Assessment and Plan: Medications resume (11) Peripheral arterial disease: Code(s): I73.9 - Peripheral vascular disease, unspecified Status: Acute Assessment and Plan: Aspirin statin (12) Hypothyroidism: Code(s): E03.9 - Hypothyroidism, unspecified Status: Acute Assessment and Plan: Continue levothyroxine (13) Dementia: Code(s): F03.90 - Unspecified dementia, unspecified severity, without behavioral disturbance, psychotic disturbance, mood disturbance, and anxiety Status: Acute Assessment and Plan: Home medications resumed Plan DVT prophylaxis -Lovenox Nutrition -diabetic diet Code Status - Full Code Incentive spirometry, up in chair, PT OT Subjective Date/time seen: 06/03/25 12:09 Interval history: 65 year old female past medical history of COPD, dementia, hypothyroidism, CVA, peripheral artery disease, anxiety, depression, type 2 diabetes, hyperlipidemia, status post right AKA was mostly on account of altered mental status. Blood sugar on scene by EMS was 20. Patient was given dextrose infusion Labs notable for WBC 9.8, ABG 7.26/60/97/26, repeat was 7.34/53.1/93.426.7, sodium 114, potassium 4.0, blood sugar [address] head no acute changes. Chest x-ray shows or pulmonary edema pneumonitis versus chronic interstitial disease. 06/02/2025: Patient being seen for hospitalist team Patient is awake, alert, oriented x3, on 2 L nasal cannula with good O2 sats. Denies any chest pain, shortness a breath, abdominal pain, nausea, vomiting. Good urine output, tolerating oral diet. Afebrile, hemodynamically stable. Sodium levels improving to 129 this morning 06/03:During the evaluation, the patient reported that initially she was on an insulin pump, but unfortunately was unable to continue on the insulin pump at [facility], and her insulin regimen was Lantus 30U AM, 25 U HS, and with 1U: 12 CHO. The patient was admitted due to an incident of hypoglycemia at the [facility]. Patient reports she slept after her dinner, which she had around 5 pm, and didn't have her nighttime snack because she slept and woke when everyone was around her, and she was disoriented.During the hospitalization patient has incidence day hyperglycemia and straightener hypoglycemia.Her insulin is been adjusted today: Decreased Lantus 20U HS to 18 U HS, added Novolog 5 U TID, de-escalated High dose SSI to Moderate dose SSI.Consulted certified diabetes educator. Review of Systems Review of Systems: Other systems reviewed and negative aside other history above. All systems reviewed & are unremarkable except as noted in HPI and below (HPI) Exam Narrative: General: Pt is alert awake and in NAD HEENT: Pupils equal and reactive, sclera ischemia, moist oral mucosa Lungs/Chest: Trachea central Clear BS B/L, No crackles or wheezing. Adequate air entry Cardiac: RRR. Normal S1 S2. No murmurs Abdomen: Nontender, nondistended, soft, normoactive bowel sounds Extremities: Right BKA, decreased pulses on the left, left foot is more warm this morning : Heller in place Neurologic: Eyelid, oriented x3, nonfocal. No answers to questions appropriately and follows simple commands in all extremities Skin: No Rash Psych: Normal mentation and affect Objective Data Vital Signs Vital Signs: Vital Signs - 24 hr 06/02/25 13:29 06/02/25 14:39 06/02/25 20:46 Temperature 97.5 F L Pulse Rate 74 74 75 Respiratory Rate 16 16 18 Blood Pressure 145/80 H Pulse Oximetry 95 Oxygen Delivery Oxygen Flow Rate 06/02/25 20:50 06/02/25 22:02 06/03/25 03:23 Temperature 98.3 F Pulse Rate 73 67 Respiratory Rate 20 14 Blood Pressure 144/67 H Pulse Oximetry 92 92 Oxygen Delivery Nasal Cannula Oxygen Flow Rate 2 06/03/25 06:13 06/03/25 08:00 06/03/25 08:00 Temperature 97.7 F Pulse Rate 70 78 78 Respiratory Rate 20 18 18 Blood Pressure 149/54 H Pulse Oximetry 100 99 Oxygen Delivery Nasal Cannula Oxygen Flow Rate 2 06/03/25 08:10 06/03/25 08:12 06/03/25 08:22 Temperature Pulse Rate 77 Respiratory Rate 16 Blood Pressure Pulse Oximetry 96 97 Oxygen Delivery Oxygen Flow Rate 1 06/03/25 08:30 06/03/25 08:32 Temperature Pulse Rate Respiratory Rate Blood Pressure Pulse Oximetry 95 Oxygen Delivery Room Air Room Air Oxygen Flow Rate Intake/Output Intake/Output: Intake & Output 05/31/25 06/01/25 06/02/25 06/03/25 23:59 23:59 23:59 23:59 Intake Total 1040 2360 4502.0 1983.8 Output Total 5650 7450 2450 600 [facility] [phone] -5090 2052.0 1383.8 Meds/Results Medications: Active Medications Generic Name Dose Route Start Last Admin Trade Name Freq PRN Reason Stop Dose Admin Albuterol/Ipratropium 3 ml 05/30/25 20:00 06/03/25 08:00 Ipratropium 0.5 Mg/Albuterol Sulfate 2.5 Mg (Base) Ampul.Neb 3 Ml INHALATION 3 ml Q6HRT BALAJI Administration Amitriptyline HCl 50 mg 05/30/25 21:00 06/02/25 21:56 Amitriptyline Hcl 25 Mg Tablet PO 50 mg HS BALAJI Administration Aspirin 81 mg 05/30/25 11:00 06/03/25 08:31 Aspirin 81 Mg Chewable Tablet PO 81 mg DAILY BALAJI Administration Atorvastatin Calcium 40 mg 10/18/25 21:00 06/02/25 21:56 Atorvastatin 40 Mg Tablet PO 40 mg HS BALAJI Administration Bupropion HCl 150 mg 05/31/25 09:00 06/03/25 08:31 Bupropion Hcl Xl (24 Hr) 150 Mg Tabcr PO 150 mg DAILY BALAJI Administration Dextrose 12.5 gm 05/30/25 11:37 Dextrose 50% 25 Gm/50 Ml Syringe IV PUSH PRN PRN Hypoglycemia Protocol Donepezil HCl 10 mg 05/30/25 21:00 06/02/25 21:56 Donepezil Hcl 10 Mg Tablet PO 10 mg HS BALAJI Administration Duloxetine HCl 20 mg 05/31/25 09:00 06/03/25 08:30 Duloxetine Hcl 20 Mg Capsule.Dr PO 20 mg BID BALAJI Administration Enoxaparin Sodium 40 mg 05/30/25 10:15 06/03/25 08:34 Enoxaparin 40 Mg/0.4 Ml Syringe SUB-Q 40 mg DAILY BALAJI Administration Glucagon 1 mg 05/30/25 11:37 Glucagon For Inj 1 Mg Vial IM PRN PRN Hypoglycemia Protocol Glucose 15 gm 05/30/25 11:37 Glucose Oral Gel 15 Gm Of Glucse In 37.5 Gm Tube PO PRN PRN Hypoglycemia Protocol Guaifenesin 600 mg 06/02/25 21:00 06/03/25 08:31 Guaifenesin 12 Hr 600 Mg Tabcr PO 600 mg Q12HR BALAJI Administration Hydralazine HCl 20 mg 05/30/25 14:48 05/31/25 11:41 Hydralazine Hcl 20 Mg/Ml Vial IV PUSH 20 mg Q4H PRN Administration SBP more than 160 Dextrose 1,000 mls @ 100 mls/hr 05/30/25 11:37 Dextrose 5% 1,000 Ml IVPB PRN PRN Hypoglycemia Protocol Insulin Aspart 4 - 8 units 05/30/25 12:00 06/03/25 08:03 Insulin Aspart (*Bkc) 100 Units/Ml SUB-Q Not Given TIDWM BALAJI Protocol Insulin Aspart 2 - 4 units 05/30/25 21:00 06/02/25 21:57 Insulin Aspart (*Bkc) 100 Units/Ml SUB-Q 3 units HS BALAJI Administration Protocol Insulin Glargine 20 units 05/31/25 21:00 06/02/25 21:58 Insulin Glargine (*Bkc) 100 Units/Ml SUB-Q 20 units HS BALAJI Administration Levothyroxine Sodium 75 mcg 05/31/25 06:30 06/03/25 06:25 Levothyroxine Sodium 75 Mcg Tablet PO 75 mcg DAILY@0630 BALAJI Administration Levothyroxine Sodium 100 mcg 05/30/25 11:00 06/03/25 06:25 Levothyroxine Sodium 100 Mcg Tablet PO 100 mcg DAILY@0630 BALAJI Administration Loratadine 10 mg 05/30/25 11:00 06/03/25 08:31 Loratadine 10 Mg Tablet PO 10 mg DAILY BALAJI Administration Memantine 10 mg 05/30/25 21:00 06/03/25 08:31 Memantine 10 Mg Tablet PO 10 mg Q12HR BALAJI Administration Metoclopramide HCl 10 mg 05/31/25 06:30 06/03/25 06:25 Metoclopramide Hcl 10 Mg Tablet PO 10 mg AC BALAJI Administration Ondansetron HCl 4 mg 05/30/25 03:49 Ondansetron Inj 4 Mg/2 Ml Vial IV PUSH Q4H PRN Nausea Polyethylene Glycol 17 gm 05/30/25 10:14 Polyethylene Glycol 3350 17 Gm Powd.Pack PO DAILY PRN Constipation Pramipexole Dihydrochloride 0.5 mg 05/31/25 09:00 06/03/25 08:31 Pramipexole 0.5 Mg Tablet PO 0.5 mg TID BALAJI Administration Prednisone 20 mg 06/02/25 08:00 06/03/25 08:31 Prednisone 20 Mg Tablet PO 06/03/25 23:59 20 mg DAILY@0800 BALAJI Administration Pregabalin 300 mg 05/30/25 19:20 06/03/25 08:30 Pregabalin (*Crx) 75 Mg Capsule PO 300 mg TID BALAJI Administration Fluticasone/Salmeterol 2 puff 05/30/25 20:00 06/03/25 08:00 Fluticasone/Salmeterol 115-21 Mcg Inhaler 1 Puff INHALATION 2 puff Q12HRT BALAJI Administration Sodium Chloride 1,000 mg 05/30/25 09:00 06/03/25 08:31 Sodium Chloride 500 Mg Tablet PO 1,000 mg BID BALAJI Administration Vitamin D 50 mcg 05/30/25 11:00 06/03/25 08:31 Cholecalciferol (Vitamin D3) 25 Mcg (1,000 Units) Tablet PO 50 mcg DAILY BALAJI Administration Radiology Results: ITS Impressions Head CT 05/30/25 07:29 IMPRESSION: 1. 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 Chronic encephalomalacia in the left frontal temporal region. 2. Moderate nonspecific cerebral white matter disease, which likely represents chronic small vessel ischemic disease. Chest CT 05/31/25 09:57 IMPRESSION: 1. Small sliding hiatal hernia. Chest X-Ray 05/31/25 18:45 Impression: No acute cardiopulmonary abnormality. Labs Labs: Laboratory Results - last 24 hr 05/30/25 05/30/25 05/31/25 04:12 17:35 04:18 WBC RBC Hgb Hct MCV MCH MCHC RDW Plt Count MPV Immature Gran % (Auto) Neut % (Auto) Lymph % (Auto) Guthrie % (Auto) Eos % (Auto) Baso % (Auto) Lymph # (Auto) Guthrie # (Auto) Eos # (Auto) Baso # (Auto) Abs Immat Gran (auto) Absolute Neuts (auto) Absolute Nucleated RBC Nucleated RBC % Sodium Potassium Chloride Carbon Dioxide Anion Gap BUN Creatinine Estim Creat Clear Calc Estimated GFR Glucose POC Capillary Glucose Calcium Phosphorus Magnesium Total Bilirubin AST ALT Alkaline Phosphatase Total Protein Albumin Urine Total Protein 6.8 Urine Albumin (PEP) 30.6 U Taovz-1-Avwrdnzd 5.7 U Cvaro-1-Nvijegpw 9.2 U Beta Globulin 41.3 U Gamma Globulin 13.3 U Random M-Joel (%) Comment: Urine PEP Note Comment IgG 1142 IgA 293 IgM 30 ABDOULAYE Interpretation Comment Urine Immunofixation Comment 06/02/25 06/02/25 06/02/25 12:12 16:29 20:52 WBC RBC Hgb Hct MCV MCH MCHC RDW Plt Count MPV Immature Gran % (Auto) Neut % (Auto) Lymph % (Auto) Guthrie % (Auto) Eos % (Auto) Baso % (Auto) Lymph # (Auto) Guthrie # (Auto) Eos # (Auto) Baso # (Auto) Abs Immat Gran (auto) Absolute Neuts (auto) Absolute Nucleated RBC Nucleated RBC % Sodium Potassium Chloride Carbon Dioxide Anion Gap BUN Creatinine Estim Creat Clear Calc Estimated GFR Glucose POC Capillary Glucose 230 H 387 H 301 H Calcium Phosphorus Magnesium Total Bilirubin AST ALT Alkaline Phosphatase Total Protein Albumin Urine Total Protein Urine Albumin (PEP) U Rqoba-7-Pwvhorzw U Khrcs-6-Chfgdild U Beta Globulin U Gamma Globulin U Random M-Joel (%) Urine PEP Note IgG IgA IgM ABDOULAYE Interpretation Urine Immunofixation 06/03/25 06/03/25 06/03/25 04:11 04:53 07:46 WBC 7.4 RBC 4.14 L Hgb 12.1 Hct 36.3 L MCV 87.7 MCH 29.2 MCHC 33.3 RDW 14.1 Plt Count 301 MPV 9.6 Immature Gran % (Auto) 0.4 Neut % (Auto) 54.1 Lymph % (Auto) 32.4 Guthrie % (Auto) 11.6 H Eos % (Auto) 1.2 Baso % (Auto) 0.3 Lymph # (Auto) 2.38 Guthrie # (Auto) 0.9 H Eos # (Auto) 0.1 Baso # (Auto) 0.0 Abs Immat Gran (auto) 0.03 Absolute Neuts (auto) 4.0 Absolute Nucleated RBC 0.000 Nucleated RBC % 0.0 Sodium 127 L Potassium 4.0 Chloride 94 L Carbon Dioxide 30 Anion Gap 3 L BUN 13 Creatinine 0.52 L Estim Creat Clear Calc 94 Estimated GFR > 60 Glucose 184 H POC Capillary Glucose 105 Calcium 8.1 L Phosphorus 3.3 Magnesium 1.9 Total Bilirubin 0.3 AST 29 ALT 22 Alkaline Phosphatase 106 Total Protein 6.3 Albumin 3.4 L Urine Total Protein Urine Albumin (PEP) U Tjftd-4-Cwvyuirv U Jjdxh-3-Kgudhoki U Beta Globulin U Gamma Globulin U Random M-Joel (%) Urine PEP Note IgG IgA IgM ABDOULAYE Interpretation Urine Immunofixation 06/03/25 11:33 WBC RBC Hgb Hct MCV MCH MCHC RDW Plt Count MPV Immature Gran % (Auto) Neut % (Auto) Lymph % (Auto) Guthrie % (Auto) Eos % (Auto) Baso % (Auto) Lymph # (Auto) Guthrie # (Auto) Eos # (Auto) Baso # (Auto) Abs Immat Gran (auto) Absolute Neuts (auto) Absolute Nucleated RBC Nucleated RBC % Sodium Potassium Chloride Carbon Dioxide Anion Gap BUN Creatinine Estim Creat Clear Calc Estimated GFR Glucose POC Capillary Glucose 284 H Calcium Phosphorus Magnesium Total Bilirubin AST ALT Alkaline Phosphatase Total Protein Albumin Urine Total Protein Urine Albumin (PEP) U Lmrzz-7-Rhnbamgv U Nuilv-7-Uadpwefs U Beta Globulin U Gamma Globulin U Random M-Joel (%) Urine PEP Note IgG IgA IgM ABDOULAYE Interpretation Urine Immunofixation Quality VTE Prophylaxis VTE prophylaxis: pharmacologic ordered Hospitalist MIPS Advance Care Plan I have confirmed that the patient's Advanced Care Plan is present, code status is documented, or surrogate decision maker is listed in patient medical record.: Yes Medication Reconciliation I have utilized all available resources to obtain, update and review the patients current medications (includes all prescriptions, OTC, herbals, cannabis, and nutritional supplements).: Yes
[2025-06-03] MEDS: INSULIN ASPART (*BKC) 100 UNITS/ML SUB-Q ×4 (12:34→21:11)
[2025-06-03 13:09] LABS: Osmolality, Serum 246 mOsmol/kg (280-301)
[2025-06-03] MEDS: AMITRIPTYLINE HCL 25 MG TABLET 50 MG PO (21:07)
[2025-06-03] MEDS: DONEPEZIL HCL 10 MG TABLET PO (21:07)
[2025-06-03] MEDS: ATORVASTATIN 40 MG TABLET PO (21:07)
[2025-06-03] MEDS: INSULIN GLARGINE (*BKC) 100 UNITS/ML 18 UNITS SUB-Q (21:13)
[2025-06-04] VITALS (12 sets, daily range): BP systolic 124–152; BP diastolic 55–93; PULSE 62–86; RESP 18–20; TEMP 36.1–36.6; O2SAT 91–99; BMI 30.8
[2025-06-04] MEDS: IPRATROPIUM 0.5 MG/ALBUTEROL SULFATE 2.5 MG (BASE) AMPUL.NEB 3 ML INHALATION ×4 (01:59→20:22)
[2025-06-04 04:07] LABS: Osmolality, Urine 321 mOsmol/kg (.)
[2025-06-04 04:41] LABS: Hematocrit 36.0 % (37.0-47.0); Hemoglobin 12.0 g/dL (12.0-15.0); Mean Corpuscular HGB Conc 33.3 g/dl (32-36); Mean Corpuscular Hemoglobin 29.1 pg (26-34); Mean Corpuscular Volume 87.2 fl (80-100); Platelet Count Result 321 k/mm3 (150-375); Red Blood Count 4.13 M/mm3 (4.2-5.4); White Blood Count 6.3 K/mm3 (4.5-10.0)
[2025-06-04 05:01] LABS: Alanine Aminotransferase 23 U/L (6-35); Albumin Level 3.4 g/dL (3.5-5.1); Alkaline Phosphatase 111 U/L (38-126); Anion Gap 4 mmol/L (4-12); Aspartate Amino Transferase 27 U/L (14-36); Bilirubin,Total 0.3 mg/dL (0.2-1.3); Blood Urea Nitrogen 14 mg/dL (7-17); Calcium 8.2 mg/dL (8.4-10.2); Carbon Dioxide 31 mmol/L (22-30); Chloride 94 mmol/L (98-107); Estimated CRCL calculation 80 ml/min; Estimated Glomerular Filt Rate > 60; Glucose 124 mg/dL (65-110); Magnesium 1.9 mg/dL (1.6-2.3); Potassium 3.9 mmol/L (3.4-5.0); Sodium 129 mmol/L (137-145); Total Protein 6.4 g/dL (6.3-8.2)
[2025-06-04] MEDS: LEVOTHYROXINE SODIUM 100 MCG TABLET PO (06:16)
[2025-06-04] MEDS: METOCLOPRAMIDE HCL 10 MG TABLET PO ×3 (06:16→16:38)
[2025-06-04] MEDS: LEVOTHYROXINE SODIUM 75 MCG TABLET PO (06:16)
[2025-06-04] MEDS: ASPIRIN 81 MG CHEWABLE TABLET PO (08:46)
[2025-06-04] MEDS: LORATADINE 10 MG TABLET PO (08:46)
[2025-06-04] MEDS: SODIUM CHLORIDE 500 MG TABLET 1000 MG PO ×2 (08:46→16:38)
[2025-06-04] MEDS: guaiFENesin 12 HR 600 MG TABCR PO ×2 (08:46→20:53)
[2025-06-04] MEDS: PREGABALIN (*CRX) 75 MG CAPSULE 300 MG PO ×3 (08:46→16:38)
[2025-06-04] MEDS: buPROPion HCL XL (24 HR) 150 MG TABCR PO (08:47)
[2025-06-04] MEDS: MEMANTINE 10 MG TABLET PO ×2 (08:47→20:53)
[2025-06-04] MEDS: CHOLECALCIFEROL (VITAMIN D3) 25 MCG (1,000 UNITS) TABLET 50 MCG PO (08:47)
[2025-06-04] MEDS: INSULIN ASPART (*BKC) 100 UNITS/ML SUB-Q ×3 (08:47→16:39)
[2025-06-04] MEDS: ENOXAPARIN 40 MG/0.4 ML SYRINGE SUB-Q (08:47)
[2025-06-04] MEDS: PRAMIPEXOLE 0.5 MG TABLET PO ×3 (08:47→16:38)
[2025-06-04] MEDS: FLUTICASONE/SALMETEROL 115-21 MCG INHALER 1 PUFF 2 PUFF INHALATION ×2 (09:02→20:22)
--- NOTE | 2025-06-04 17:22 | PM.IMPN ---
Progress Note: A&P Assessment and Plan (1) Encephalopathy acute: Code(s): G93.40 - Encephalopathy, unspecified Status: Acute Assessment and Plan: Presented with acute encephalopathy which is likely secondary to hypoglycemia as it has resolved after administration of dextrose. Patient also has is hyponatremia but hyponatremia is still present and mental status has improved his suggesting against the etiology Head CT was negative ABG reviewed TSH and ammonia normal Hyponatremia management as below Hold sedatives Patient now back to baseline (2) Hyponatremia: Code(s): E87.1 - Hypo-osmolality and hyponatremia Status: Acute Assessment and Plan: Patient presented with hyponatremia with normal renal function Differential includes dehydration as patient is on diuretics vs medication induced as patient is on several psychiatric medications vs SIADH Nephrology has been managing sodium till now patient is currently off any fluids in sodium is improved to 128 Will defer further evaluation and management to Nephrology. CT chest was negative TSH is normal, random cortisol level is in normal range -sodium levels have been improving gradually, 129 this (3) COPD (chronic obstructive pulmonary disease): Code(s): J44.9 - Chronic obstructive pulmonary disease, unspecified Status: Acute Assessment and Plan: Bronchodilators, Advair -decrease steroids (4) Hypoglycemia: Code(s): E16.2 - Hypoglycemia, unspecified Status: Acute Assessment and Plan: Patient presented with altered mental status and hypoglycemia. Hypoglycemia appears to be secondary to error with insulin. Blood glucose had improved and patient became hyperglycemic. Lantus was resumed last night. She had a blood glucose of 45 this morning. Patient is asymptomatic and is now eating. Will monitor blood glucose. Continue Lantus at a low rate at this time. -steroids being weaned also will have blood sugars 06/03::During the evaluation, the patient reported that initially she was on an insulin pump, but unfortunately was unable to continue on the insulin pump at [facility], and her insulin regimen was Lantus 30U AM, 25 U HS, and with 1U: 12 CHO. The patient was admitted due to an incident of hypoglycemia at the [facility]. Patient reports she slept after her dinner, which she had around 5 pm, and didn't have her nighttime snack because she slept and woke when everyone was around her, and she was disoriented.During the hospitalization patient has incidence day hyperglycemia and advanced registered nurse hypoglycemia.Her insulin is been adjusted today: Decreased Lantus 20U HS to 18 U HS, added Novolog 5 U TID, de-escalated High dose SSI to Moderate dose SSI.Consulted certified breastfeeding educator. (5) Diabetes mellitus: Code(s): E11.9 - Type 2 diabetes mellitus without complications Status: Acute Assessment and Plan: See above (6) Respiratory failure: Code(s): J96.90 - Respiratory failure, unspecified, unspecified whether with hypoxia or hypercapnia Status: Acute Assessment and Plan: Patient has history of COPD and presented with respiratory acidosis which could have been exacerbated by her encephalopathy. Patient was placed on BiPAP. ABG has improved. Patient is now awake alert and off oxygen. Will use BiPAP on p.r.n. basis if needed. Chest x-ray was clear. CT chest done and negative -weaning steroids (7) Hyperkalemia: Code(s): E87.5 - Hyperkalemia Status: Acute Assessment and Plan: Pt given Lokelma. Potassium normalized Nephrology managing -potassium has normalized (8) Hyperlipidemia: Code(s): E78.5 - Hyperlipidemia, unspecified Status: Acute Assessment and Plan: Continue statin (9) Depression: Code(s): F32.A - Depression, unspecified Status: Acute Assessment and Plan: psychiatric medications resume (10) Anxiety: Code(s): F41.9 - Anxiety disorder, unspecified Status: Acute Assessment and Plan: Medications resume (11) Peripheral arterial disease: Code(s): I73.9 - Peripheral vascular disease, unspecified Status: Acute Assessment and Plan: Aspirin statin (12) Hypothyroidism: Code(s): E03.9 - Hypothyroidism, unspecified Status: Acute Assessment and Plan: Continue levothyroxine (13) Dementia: Code(s): F03.90 - Unspecified dementia, unspecified severity, without behavioral disturbance, psychotic disturbance, mood disturbance, and anxiety Status: Acute Assessment and Plan: Home medications resumed Plan DVT prophylaxis -Lovenox Nutrition -diabetic diet Code Status - Full Code Incentive spirometry, up in chair, PT OT Subjective Date/time seen: 06/04/25 17:22 Interval history: Pending certified breastfeeding educator. Possible discharge tomorrow Review of Systems Review of Systems: Other systems reviewed and negative aside other history above. All systems reviewed & are unremarkable except as noted in HPI and below (HPI) Exam Narrative: General: Pt is alert awake and in NAD HEENT: Pupils equal and reactive, sclera ischemia, moist oral mucosa Lungs/Chest: Trachea central Clear BS B/L, No crackles or wheezing. Adequate air entry Cardiac: RRR. Normal S1 S2. No murmurs Abdomen: Nontender, nondistended, soft, normoactive bowel sounds Extremities: Right BKA, decreased pulses on the left, left foot is more warm this morning : Heller in place Neurologic: Eyelid, oriented x3, nonfocal. No answers to questions appropriately and follows simple commands in all extremities Skin: No Rash Psych: Normal mentation and affect Objective Data Vital Signs Vital Signs: Vital Signs - 24 hr 06/03/25 19:48 06/03/25 19:48 06/03/25 20:00 Temperature Pulse Rate 73 73 Respiratory Rate 18 18 Blood Pressure Pulse Oximetry 92 Oxygen Delivery Room Air Room Air Oxygen Flow Rate Fraction of Inspired Oxygen 21 06/03/25 21:46 06/04/25 01:59 06/04/25 01:59 Temperature 98.1 F Pulse Rate 71 71 71 Respiratory Rate 16 18 18 Blood Pressure 128/54 L Pulse Oximetry 95 95 Oxygen Delivery Nasal Cannula Oxygen Flow Rate 2 Fraction of Inspired Oxygen 06/04/25 02:09 06/04/25 05:07 06/04/25 08:50 Temperature 97 F L Pulse Rate 72 64 Respiratory Rate 18 20 Blood Pressure 135/86 Pulse Oximetry 98 97 Oxygen Delivery Room Air Oxygen Flow Rate Fraction of Inspired Oxygen 06/04/25 09:02 06/04/25 09:02 06/04/25 09:16 Temperature Pulse Rate 76 76 83 Respiratory Rate 20 20 20 Blood Pressure Pulse Oximetry 97 Oxygen Delivery Room Air Oxygen Flow Rate Fraction of Inspired Oxygen 06/04/25 14:00 06/04/25 14:34 06/04/25 14:34 Temperature 97.3 F L Pulse Rate 86 68 68 Respiratory Rate 18 20 20 Blood Pressure 124/93 H Pulse Oximetry 99 92 Oxygen Delivery Room Air Oxygen Flow Rate Fraction of Inspired Oxygen 06/04/25 14:45 Temperature Pulse Rate 62 Respiratory Rate 20 Blood Pressure Pulse Oximetry Oxygen Delivery Oxygen Flow Rate Fraction of Inspired Oxygen Intake/Output Intake/Output: Intake & Output 06/01/25 06/02/25 06/03/25 06/04/25 23:59 23:59 23:59 23:59 Intake Total 2360 4502.0 2943.8 990 Output Total 7450 2450 2250 1600 Balance -5090 2052.0 693.8 -610 Meds/Results Medications: Active Medications Generic Name Dose Route Start Last Admin Trade Name Freq PRN Reason Stop Dose Admin Albuterol/Ipratropium 3 ml 05/30/25 20:00 06/04/25 14:34 Ipratropium 0.5 Mg/Albuterol Sulfate 2.5 Mg (Base) Ampul.Neb 3 Ml INHALATION 3 ml Q6HRT BALAJI Administration Amitriptyline HCl 50 mg 05/30/25 21:00 06/03/25 21:07 Amitriptyline Hcl 25 Mg Tablet PO 50 mg HS BALAJI Administration Aspirin 81 mg 05/30/25 11:00 06/04/25 08:46 Aspirin 81 Mg Chewable Tablet PO 81 mg DAILY ABLAJI Administration Atorvastatin Calcium 40 mg 05/30/25 21:00 06/03/25 21:07 Atorvastatin 40 Mg Tablet PO 40 mg HS BALAJI Administration Bupropion HCl 150 mg 05/31/25 09:00 06/04/25 08:47 Bupropion Hcl Xl (24 Hr) 150 Mg Tabcr PO 150 mg DAILY BALAJI Administration Dextrose 12.5 gm 05/30/25 11:37 Dextrose 50% 25 Gm/50 Ml Syringe IV PUSH PRN PRN Hypoglycemia Protocol Donepezil HCl 10 mg 05/30/25 21:00 06/03/25 21:07 Donepezil Hcl 10 Mg Tablet PO 10 mg HS BALAJI Administration Duloxetine HCl 20 mg 05/31/25 09:00 06/04/25 16:38 Duloxetine Hcl 20 Mg Capsule.Dr PO 20 mg BID BALAJI Administration Enoxaparin Sodium 40 mg 05/30/25 10:15 06/04/25 08:47 Enoxaparin 40 Mg/0.4 Ml Syringe SUB-Q 40 mg DAILY BALAJI Administration Glucagon 1 mg 05/30/25 11:37 Glucagon For Inj 1 Mg Vial IM PRN PRN Hypoglycemia Protocol Glucose 15 gm 05/30/25 11:37 Glucose Oral Gel 15 Gm Of Glucse In 37.5 Gm Tube PO PRN PRN Hypoglycemia Protocol Guaifenesin 600 mg 06/02/25 21:00 06/04/25 08:46 Guaifenesin 12 Hr 600 Mg Tabcr PO 600 mg Q12HR BALAJI Administration Hydralazine HCl 20 mg 05/30/25 14:48 05/31/25 11:41 Hydralazine Hcl 20 Mg/Ml Vial IV PUSH 20 mg Q4H PRN Administration SBP more than 160 Dextrose 1,000 mls @ 100 mls/hr 05/30/25 11:37 Dextrose 5% 1,000 Ml IVPB PRN PRN Hypoglycemia Protocol Insulin Aspart 5 units 06/03/25 17:00 06/04/25 16:39 Insulin Aspart (*Bkc) 100 Units/Ml SUB-Q 5 units TIDWM BALAJI Administration Insulin Aspart 3 - 6 units 06/03/25 17:00 06/04/25 16:38 Insulin Aspart (*Bkc) 100 Units/Ml SUB-Q Not Given TIDWM BALAJI Protocol Insulin Aspart 1 - 3 units 06/03/25 21:00 06/03/25 21:11 Insulin Aspart (*Bkc) 100 Units/Ml SUB-Q 2 units HS BALAJI Administration Protocol Insulin Glargine 18 units 06/03/25 21:00 06/03/25 21:13 Insulin Glargine (*Bkc) 100 Units/Ml SUB-Q 18 units HS BALAJI Administration Levothyroxine Sodium 75 mcg 05/31/25 06:30 06/04/25 06:16 Levothyroxine Sodium 75 Mcg Tablet PO 75 mcg DAILY@0630 BALAJI Administration Levothyroxine Sodium 100 mcg 05/30/25 11:00 06/04/25 06:16 Levothyroxine Sodium 100 Mcg Tablet PO 100 mcg DAILY@0630 BALAJI Administration Loratadine 10 mg 05/30/25 11:00 06/04/25 08:46 Loratadine 10 Mg Tablet PO 10 mg DAILY BALAJI Administration Memantine 10 mg 05/30/25 21:00 06/04/25 08:47 Memantine 10 Mg Tablet PO 10 mg Q12HR BALAJI Administration Metoclopramide HCl 10 mg 05/31/25 06:30 06/04/25 16:38 Metoclopramide Hcl 10 Mg Tablet PO 10 mg AC BALAJI Administration Ondansetron HCl 4 mg 05/30/25 03:49 Ondansetron Inj 4 Mg/2 Ml Vial IV PUSH Q4H PRN Nausea Polyethylene Glycol 17 gm 05/30/25 10:14 Polyethylene Glycol 3350 17 Gm Powd.Pack PO DAILY PRN Constipation Pramipexole Dihydrochloride 0.5 mg 05/31/25 09:00 06/04/25 16:38 Pramipexole 0.5 Mg Tablet PO 0.5 mg TID BALAJI Administration Pregabalin 300 mg 05/30/25 19:20 06/04/25 16:38 Pregabalin (*Crx) 75 Mg Capsule PO 300 mg TID BALAJI Administration Fluticasone/Salmeterol 2 puff 05/30/25 20:00 06/04/25 09:02 Fluticasone/Salmeterol 115-21 Mcg Inhaler 1 Puff INHALATION 2 puff Q12HRT BALAJI Administration Sodium Chloride 1,000 mg 05/30/25 09:00 06/04/25 16:38 Sodium Chloride 500 Mg Tablet PO 1,000 mg BID BALAJI Administration Vitamin D 50 mcg 05/30/25 11:00 06/04/25 08:47 Cholecalciferol (Vitamin D3) 25 Mcg (1,000 Units) Tablet PO 50 mcg DAILY BALAJI Administration Radiology Results: ITS Impressions Head CT 05/30/25 07:29 IMPRESSION: 1. 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 Chronic encephalomalacia in the left frontal temporal region. 2. Moderate nonspecific cerebral white matter disease, which likely represents chronic small vessel ischemic disease. Chest CT 05/31/25 09:57 IMPRESSION: 1. Small sliding hiatal hernia. Chest X-Ray 05/31/25 18:45 Impression: No acute cardiopulmonary abnormality. Labs Labs: Laboratory Results - last 24 hr 05/30/25 06/03/25 06/04/25 00:22 21:03 04:14 WBC 6.3 RBC 4.13 L Hgb 12.0 Hct 36.0 L MCV 87.2 MCH 29.1 MCHC 33.3 RDW 14.0 Plt Count 321 MPV 10.1 Sodium 129 L Potassium 3.9 Chloride 94 L Carbon Dioxide 31 H Anion Gap 4 BUN 14 Creatinine 0.61 L Estim Creat Clear Calc 80 Estimated GFR > 60 Glucose 124 H POC Capillary Glucose 272 H Calcium 8.2 L Phosphorus 3.8 Magnesium 1.9 Total Bilirubin 0.3 AST 27 ALT 23 Alkaline Phosphatase 111 Total Protein 6.4 Albumin 3.4 L Urine Osmolality 321 06/04/25 06/04/25 06/04/25 07:44 11:22 16:29 WBC RBC Hgb Hct MCV MCH MCHC RDW Plt Count MPV Sodium Potassium Chloride Carbon Dioxide Anion Gap BUN Creatinine Estim Creat Clear Calc Estimated GFR Glucose POC Capillary Glucose 110 H 182 H 199 H Calcium Phosphorus Magnesium Total Bilirubin AST ALT Alkaline Phosphatase Total Protein Albumin Urine Osmolality Quality VTE Prophylaxis VTE prophylaxis: pharmacologic ordered Hospitalist MIPS Advance Care Plan I have confirmed that the patient's Advanced Care Plan is present, code status is documented, or surrogate decision maker is listed in patient medical record.: Yes Medication Reconciliation I have utilized all available resources to obtain, update and review the patients current medications (includes all prescriptions, OTC, herbals, cannabis, and nutritional supplements).: Yes
[2025-06-04] MEDS: ATORVASTATIN 40 MG TABLET PO (20:53)
[2025-06-04] MEDS: AMITRIPTYLINE HCL 25 MG TABLET 50 MG PO (20:53)
[2025-06-04] MEDS: DONEPEZIL HCL 10 MG TABLET PO (20:53)
[2025-06-04] MEDS: INSULIN GLARGINE (*BKC) 100 UNITS/ML 18 UNITS SUB-Q (20:54)
[2025-06-05] VITALS (11 sets, daily range): BP systolic 122–156; BP diastolic 43–58; PULSE 63–78; RESP 16–19; TEMP 36.2–36.6; O2SAT 90–95; BMI 30.5
[2025-06-05] MEDS: IPRATROPIUM 0.5 MG/ALBUTEROL SULFATE 2.5 MG (BASE) AMPUL.NEB 3 ML INHALATION ×3 (02:55→13:19)
[2025-06-05 05:17] LABS: Hematocrit 38.9 % (37.0-47.0); Hemoglobin 13.0 g/dL (12.0-15.0); Mean Corpuscular HGB Conc 33.4 g/dl (32-36); Mean Corpuscular Hemoglobin 29.3 pg (26-34); Mean Corpuscular Volume 87.8 fl (80-100); Platelet Count Result 330 k/mm3 (150-375); Red Blood Count 4.43 M/mm3 (4.2-5.4); White Blood Count 7.1 K/mm3 (4.5-10.0)
[2025-06-05 05:48] LABS: Alanine Aminotransferase 23 U/L (6-35); Albumin Level 3.4 g/dL (3.5-5.1); Alkaline Phosphatase 107 U/L (38-126); Anion Gap 2 mmol/L (4-12); Aspartate Amino Transferase 23 U/L (14-36); Bilirubin,Total 0.4 mg/dL (0.2-1.3); Blood Urea Nitrogen 13 mg/dL (7-17); Calcium 8.2 mg/dL (8.4-10.2); Carbon Dioxide 32 mmol/L (22-30); Chloride 95 mmol/L (98-107); Estimated CRCL calculation 85 ml/min; Estimated Glomerular Filt Rate > 60; Glucose 243 mg/dL (65-110); Potassium 4.1 mmol/L (3.4-5.0); Sodium 129 mmol/L (137-145); Total Protein 6.2 g/dL (6.3-8.2)
[2025-06-05] MEDS: LEVOTHYROXINE SODIUM 75 MCG TABLET PO (05:56)
[2025-06-05] MEDS: METOCLOPRAMIDE HCL 10 MG TABLET PO ×3 (05:56→17:05)
[2025-06-05] MEDS: LEVOTHYROXINE SODIUM 100 MCG TABLET PO (05:56)
[2025-06-05] MEDS: INSULIN ASPART (*BKC) 100 UNITS/ML SUB-Q ×5 (07:57→20:00)
[2025-06-05] MEDS: ENOXAPARIN 40 MG/0.4 ML SYRINGE SUB-Q (07:59)
[2025-06-05] MEDS: ASPIRIN 81 MG CHEWABLE TABLET PO (07:59)
[2025-06-05] MEDS: buPROPion HCL XL (24 HR) 150 MG TABCR PO (08:00)
[2025-06-05] MEDS: LORATADINE 10 MG TABLET PO (08:00)
[2025-06-05] MEDS: PRAMIPEXOLE 0.5 MG TABLET PO ×2 (08:00→17:05)
[2025-06-05] MEDS: guaiFENesin 12 HR 600 MG TABCR PO ×2 (08:00→19:59)
[2025-06-05] MEDS: MEMANTINE 10 MG TABLET PO ×2 (08:00→19:59)
[2025-06-05] MEDS: CHOLECALCIFEROL (VITAMIN D3) 25 MCG (1,000 UNITS) TABLET 50 MCG PO (08:00)
[2025-06-05] MEDS: PREGABALIN (*CRX) 75 MG CAPSULE 300 MG PO ×2 (08:01→17:05)
[2025-06-05] MEDS: SODIUM CHLORIDE 500 MG TABLET 1000 MG PO ×2 (08:01→17:05)
[2025-06-05] MEDS: FLUTICASONE/SALMETEROL 115-21 MCG INHALER 1 PUFF 2 PUFF INHALATION (08:13)
--- NOTE | 2025-06-05 09:11 | P.DS_ITS ---
DS: Admitting Diagnosis Discharge Date 06/05/2025 Admitting Diagnosis Hypoglycemia DS: Discharge Diagnosis Discharge Diagnosis (1) Encephalopathy acute: Code(s): G93.40 - Encephalopathy, unspecified Status: Acute Assessment and Plan: Please refer to hospital course for brief summary L Presented with acute encephalopathy which is likely secondary to hypoglycemia as it has resolved after administration of dextrose. Patient also has is hyponatremia but hyponatremia is still present and mental status has improved his suggesting against the etiology Head CT was negative ABG reviewed TSH and ammonia normal Hyponatremia management as below Hold sedatives Patient now back to baseline (2) Hyponatremia: Code(s): E87.1 - Hypo-osmolality and hyponatremia Status: Acute Assessment and Plan: Patient presented with hyponatremia with normal renal function Differential includes dehydration as patient is on diuretics vs medication induced as patient is on several psychiatric medications vs SIADH Nephrology has been managing sodium till now patient is currently off any fluids in sodium is improved to 128 Will defer further evaluation and management to Nephrology. CT chest was negative TSH is normal, random cortisol level is in normal range -sodium levels have been improving gradually, 129 this (3) COPD (chronic obstructive pulmonary disease): Code(s): J44.9 - Chronic obstructive pulmonary disease, unspecified Status: Acute Assessment and Plan: Bronchodilators, Advair -decrease steroids (4) Hypoglycemia: Code(s): E16.2 - Hypoglycemia, unspecified Status: Acute Assessment and Plan: Patient presented with altered mental status and hypoglycemia. Hypoglycemia appears to be secondary to error with insulin. Blood glucose had improved and patient became hyperglycemic. Lantus was resumed last night. She had a blood glucose of 45 this morning. Patient is asymptomatic and is now eating. Will monitor blood glucose. Continue Lantus at a low rate at this time. -steroids being weaned also will have blood sugars 06/03::During the evaluation, the patient reported that initially she was on an insulin pump, but unfortunately was unable to continue on the insulin pump at [facility], and her insulin regimen was Lantus 30U AM, 25 U HS, and with 1U: 12 CHO. The patient was admitted due to an incident of hypoglycemia at the [facility]. Patient reports she slept after her dinner, which she had around 5 pm, and didn't have her nighttime snack because she slept and woke when everyone was around her, and she was disoriented.During the hospitalization patient has incidence day hyperglycemia and general internist and physician leader hypoglycemia.Her insulin is been adjusted today: Decreased Lantus 20U HS to 18 U HS, added Novolog 5 U TID, de-escalated High dose SSI to Moderate dose SSI.Consulted canoe maker. (5) Diabetes mellitus: Code(s): E11.9 - Type 2 diabetes mellitus without complications Status: Acute Assessment and Plan: See above (6) Respiratory failure: Code(s): J96.90 - Respiratory failure, unspecified, unspecified whether with hypoxia or hypercapnia Status: Acute Assessment and Plan: Patient has history of COPD and presented with respiratory acidosis which could have been exacerbated by her encephalopathy. Patient was placed on BiPAP. ABG has improved. Patient is now awake alert and off oxygen. Will use BiPAP on p.r.n. basis if needed. Chest x-ray was clear. CT chest done and negative -weaning steroids (7) Hyperkalemia: Code(s): E87.5 - Hyperkalemia Status: Acute Assessment and Plan: Pt given Lokelma. Potassium normalized Nephrology managing -potassium has normalized (8) Hyperlipidemia: Code(s): E78.5 - Hyperlipidemia, unspecified Status: Acute Assessment and Plan: Continue statin (9) Depression: Code(s): F32.A - Depression, unspecified Status: Acute Assessment and Plan: psychiatric medications resume (10) Anxiety: Code(s): F41.9 - Anxiety disorder, unspecified Status: Acute Assessment and Plan: Medications resume (11) Peripheral arterial disease: Code(s): I73.9 - Peripheral vascular disease, unspecified Status: Acute Assessment and Plan: Aspirin statin (12) Hypothyroidism: Code(s): E03.9 - Hypothyroidism, unspecified Status: Acute Assessment and Plan: Continue levothyroxine (13) Dementia: Code(s): F03.90 - Unspecified dementia, unspecified severity, without behavioral disturbance, psychotic disturbance, mood disturbance, and anxiety Status: Acute Assessment and Plan: Home medications resumed DS: Summary Hospital Course Hospital Course: Analia Hernandez is a 65 year old female who is a care home resident and has past medical history of type 2 diabetes, COPD, right above knee amputation, peripheral neuropathy was sent from care home yesterday with altered mental status and hypoglycemia. Patient who used to be on insulin pump was switched to subcutaneous insulin at care home. She states she takes 25 of Lantus in the morning and 30 of Lantus at night and sliding scale during the day. Yesterday she was found to be altered and diaphoretic and when her sugar was checked it was 20. It appears that she was given her short-acting insulin without she eating her meals.. In ER patient was given dextrose along with fluids with improvement in mental status. Patient also was found to be hypercarbic and was placed on BiPAP.. Patient was unable to provide any meaningful history. She also was found to be having severe hyponatremia and was given 3% saline bolus which only led to minimal improvement in her sodium level. Nephrology consulted patient was started on regular normal saline and admitted to ICU and was placed on BiPAP. This morning when intensive evaluated the patient patient is alert awake oriented x3 and states she feels better. She confirmed that she had a low blood sugar level last night due to some error with insulin administration and states that prior to that she was feeling fine and no issues whatsoever. She states she is in care home because she had a sacral wound which could not be managed at home and since then she has had surgery and the wound has healed. She admitted to taking all the medications regularly although she does not know all the details of all the medications she takes. She admits to smoking cigarettes drinking alcohol rarely and denies any other drug use. I assumed care 06/03/2025 During the evaluation, the patient reported that initially she was on an insulin pump, but unfortunately was unable to continue on the insulin pump at [facility], and her insulin regimen was Lantus 30U AM, 25 U HS, and with 1U: 12 CHO. The patient was admitted at [facility] due to an incident of hypoglycemia at the [facility]. Patient reports she slept after her dinner, which she had around 5 pm, and didn't have her nighttime snack because she slept and woke when everyone was around her, and she was disoriented. During hospitalization, the patient has had episodes of day hyperglycemia and general internist and physician leader hypoglycemia. Her insulin has been adjusted : Decreased Lantus 20 U HS to 18 U HS, added Novolog 5 U TID, de-escalated High- dose SSI to Moderate-dose SSI. Consulted canoe maker who agrees with the current plan due to patient had incidence of hypoglycemia at care home. Patient does not need the long-acting insulin 30 units and 25 units in the night time. On the day of discharge, the patient was seen and examined. Vital signs were stable. Physical exam were stable and labs were reviewed at length. Discharge instructions, medications, and follow-up appointments were discussed with the patient at length and all day questions were answered. ER warnings were given. Status at Discharge Cognitive/behavioral status at discharge: Stable Time Spent with Patient Time attestation: Total time spent providing and/or coordinating discharge services: 45 minute Exam Narrative: General: Pt is alert awake and in NAD HEENT: Pupils equal and reactive, sclera ischemia, moist oral mucosa Lungs/Chest: Trachea central Clear BS B/L, No crackles or wheezing. Adequate air entry Cardiac: RRR. Normal S1 S2. No murmurs Abdomen: Nontender, nondistended, soft, normoactive bowel sounds Extremities: Right BKA, decreased pulses on the left, left foot is more warm this morning : Heller in place Neurologic: Eyelid, oriented x3, nonfocal. No answers to questions appropriately and follows simple commands in all extremities Skin: No Rash Psych: Normal mentation and affect DS: Data Data Completed and Pending Labs on day of discharge: Labs from last 24 hours 06/05/25 06/05/25 06/04/25 07:49 04:50 20:06 WBC 7.1 RBC 4.43 Hgb 13.0 Hct 38.9 MCV 87.8 MCH 29.3 MCHC 33.4 RDW 14.3 Plt Count 330 MPV 9.8 Sodium 129 L Potassium 4.1 Chloride 95 L Carbon Dioxide 32 H Anion Gap 2 L BUN 13 Creatinine 0.56 L Estim Creat Clear Calc 85 Estimated GFR > 60 Glucose 243 H POC Capillary Glucose 230 H 122 H Calcium 8.2 L Total Bilirubin 0.4 AST 23 ALT 23 Alkaline Phosphatase 107 Total Protein 6.2 L Albumin 3.4 L 06/04/25 06/04/25 16:29 11:22 WBC RBC Hgb Hct MCV MCH MCHC RDW Plt Count MPV Sodium Potassium Chloride Carbon Dioxide Anion Gap BUN Creatinine Estim Creat Clear Calc Estimated GFR Glucose POC Capillary Glucose 199 H 182 H Calcium Total Bilirubin AST ALT Alkaline Phosphatase Total Protein Albumin Preliminary micro results at discharge 05/30/25 00:22 Blood Culture - Preliminary Blood 05/30/25 00:22 Blood Culture - Preliminary Blood Additional Comments Additional comments: ITS Impressions Head CT 05/30/25 07:29 IMPRESSION: 1. 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 Chronic encephalomalacia in the left frontal temporal region. 2. Moderate nonspecific cerebral white matter disease, which likely represents chronic small vessel ischemic disease. Chest X-Ray 05/30/25 07:55 IMPRESSION: 1. Subtle interstitial pulmonary edema, pneumonitis, and/or chronic interstitial disease. Chest CT 05/31/25 09:57 IMPRESSION: 1. Small sliding hiatal hernia. Chest X-Ray 05/31/25 18:45 Impression: No acute cardiopulmonary abnormality. Discharge Plan Discharge Attending physician on discharge: Siva Mcdaniels Consulting providers: Chaz Acuña; Giana Vallejo; Facundo De León Discharging Clinician: Siva Mcdaniels Anticipated Discharge Date/Time: 06/05/25 09:17 Patient Disposition: NH Snf/Asst Living Activity: as tolerated Diet: diabetic Discharge Instructions: Patient needs to closely follow-up with Endocrinology for further insulin regimen changes Patient is a discharged with the Lantus 18 units, NovoLog 5 units t.i.d. In the event of any concerning symptoms please return to ED Patient Instructions: Antibiotic Form, Hyponatremia (GEN), Encephalopathy (GEN) Patient Language: Luxembourgish Stand Alone Forms: General Discharge Information Follow-up/Referrals: Reanna,Terrance Sanchez [Primary Care Provider] Discharge Medications: New (DME) blood-glucose meter [OneTouch Verio Flex meter] Misc Qty: 1 0RF Rx Instructions: May substitute to in-stock meter and/or covered by insurance. Use As Directed (DME) OneTouch Verio test strips Strip Qty: 1 0RF Rx Instructions: May substitute to in-stock and/or covered by insurance strips. Use As Directed (DME) pen needle, diabetic 32 gauge x 5/32 Needle Qty: 1 0RF Rx Instructions: As Directed (DME) lancets [OneTouch Delica Plus Lancet] 30 gauge misc Qty: 1 0RF Rx Instructions: May substitute to in-stock and/or covered by insurance lancets. Use As Directed (DME) insulin syringe,safety needle 0.5 mL 31 gauge x 5/16 Syringe Qty: 1 0RF Rx Instructions: As Directed sodium chloride 1,000 mg tablet,soluble 1,000 mg PO DAILY Qty: 10 0RF sodium chloride 1,000 mg tablet,soluble 1,000 mg PO DAILY Qty: 10 0RF insulin aspart U-100 [Novolog FlexPen U-100 Insulin] 100 unit/mL (3 mL) insulin pen 5 unit subcut TID Qty: 15 0RF insulin glargine [Lantus Solostar U-100 Insulin] 100 unit/mL (3 mL) insulin pen 18 unit subcut QHS Qty: 15 0RF Continued fluticasone propion-salmeterol [Advair HFA] 45-21 mcg/actuation HFA aerosol inhaler 2 puff inhalation BID PRN (Reason: shortness of breath) amitriptyline 50 mg tablet 50 mg PO HS aspirin 81 mg capsule 81 mg PO DAILY atorvastatin 40 mg tablet 40 mg PO HS bupropion HCl 150 mg tablet extended release 24 hr 150 mg PO DAILY cholecalciferol (vitamin D3) 50 mcg (2,000 unit) tablet,chewable 50 mcg PO DAILY Combivent Respimat 20-100 mcg/actuation mist 1 puff inhalation BID PRN (Reason: shortness of breath or wheezing) Rx Instructions: space evenly during waking hours donepezil 10 mg tablet 10 mg PO HS duloxetine 20 mg capsule,delayed release(DR/EC) 20 mg PO BID guaifenesin [Chest Congestion Relief] 400 mg tablet 400 mg PO Q6H PRN (Reason: congestion) insulin aspart U-100 100 unit/mL (3 mL) insulin pen 1 sliding scale dose SUBCUT ACHS Rx Instructions: Glucose 0-150 0 units 151-250 2 units 251-300 6 units 301-350 8 units 351-400 10 units >400 Call furosemide 40 mg tablet 40 mg PO DAILY levothyroxine 75 mcg tablet 75 mcg PO DAILY Rx Instructions: Take with 100 mcg for total dose of 175 mcg levothyroxine 100 mcg tablet 100 mcg PO DAILY Rx Instructions: take with 75 mcg tablet for total dose of 175 mcg lisinopril 20 mg tablet 20 mg PO DAILY loratadine [Allerclear] 10 mg tablet 10 mg PO DAILY pregabalin [Lyrica] 300 mg capsule 300 mg PO TID memantine 10 mg tablet 10 mg PO BID metoclopramide HCl 10 mg tablet 10 mg PO AC pramipexole 0.5 mg tablet 0.5 mg PO TID oxycodone 5 mg tablet 5 mg PO Q4H PRN (Reason: pain) polyethylene glycol 3350 [Miralax] 17 gram/dose powder 17 g PO DAILY PRN (Reason: constipation) [place] Saline 0.65 % aerosol,spray 2 spray intranasal Q2H PRN (Reason: dry nasal passages) Discontinued insulin degludec 100 unit/mL (3 mL) insulin pen 25 unit SUBCUT DAILY insulin degludec 100 unit/mL (3 mL) insulin pen 30 unit subcut HS Date of admission: 05/30/25 03:49 Primary Care Provider: Reanna,Laura Admitting Provider: Althea Miguel Attending physician on admission: Althea Miguel Condition: Stable
--- NOTE | 2025-06-05 10:21 | PCNWS ---
Weekly nutritional screen. Patient is tolerating current Diabetic diet with adequate intake at 100%. cosmetology educator has reviewed blood sugars and insulin regimen. Pt reports no questions or concerns. No weight loss reported. No nutritional needs at this time.
[2025-06-05] MEDS: DONEPEZIL HCL 10 MG TABLET PO (19:59)
[2025-06-05] MEDS: INSULIN GLARGINE (*BKC) 100 UNITS/ML 18 UNITS SUB-Q (19:59)
[2025-06-05] MEDS: ATORVASTATIN 40 MG TABLET PO (19:59)
[2025-06-05] MEDS: AMITRIPTYLINE HCL 25 MG TABLET 50 MG PO (19:59)
== END 2025-06-05 22:05 | DRG 70 ==
LOC: ANHED 05-30 04:25 → ANHICU 05-30 05:37 → ANH2MED 06-03 11:27 → ANHICU 06-08 11:15
PROVIDERS: Internal Medicine; Internal Medicine Nephrology; Admitting Provider Internal Medicine; Emergency Provider Student in an Organized Health Care Education/Training Program; PCP Internal Medicine; Visit Provider General Practice
DX: G93.41 Metabolic encephalopathy (principal); J96.02 Acute respiratory failure with hypercapnia; J96.90 Respiratory failure, unspecified, unspecified whether with hypoxia or hypercapnia; E87.1 Hypo-osmolality and hyponatremia; Z79.4 Long term (current) use of insulin; E11.649 Type 2 diabetes mellitus with hypoglycemia without coma; R68.0 Hypothermia, not associated with low environmental temperature; J44.9 Chronic obstructive pulmonary disease, unspecified; E03.9 Hypothyroidism, unspecified; E11.51 Type 2 diabetes mellitus with diabetic peripheral angiopathy without gangrene; E11.42 Type 2 diabetes mellitus with diabetic polyneuropathy; E87.5 Hyperkalemia; E78.5 Hyperlipidemia, unspecified; F32.A Depression, unspecified; F03.90 Unspecified dementia, unspecified severity, without behavioral disturbance, psychotic disturbance, mood disturbance, and anxiety; F41.9 Anxiety disorder, unspecified; I73.9 Peripheral vascular disease, unspecified; Z89.611 Acquired absence of right leg above knee; Z86.73 Personal history of transient ischemic attack (TIA), and cerebral infarction without residual deficits; Z87.891 Personal history of nicotine dependence; Z79.82 Long term (current) use of aspirin
CPT/HCPCS: 36415; 36600; 70450; 71045; 71250; 80048; 80053; 80307; 81003; 82140; 82375; 82436; 82533; 82570; 82784; 82803; 82805; 82948; 83050; 83605; 83735; 83930; 83935; 84100; 84155; 84156; 84165; 84166; 84295; 84300; 84443; 84540; 85018; 85025; 85027; 85610; 85730; 86334; 86335; 87040; 87641; 93306; 94002; 94003; 94640; 96361; 96374; 96375; 97110; 97161; 97166; 97530; 99285; A9270; J0360; J0613; J1630; J1650; J1720; J1815; J7030; J7120; J7131; J7512